=== PATIENT | male | born 1990 | race Caucasian/White ===

== ENCOUNTER 2020-08-04 11:06 | Emergency (ER) | payer OTHER, SELFPAY ==
[2020-08-04 11:14] VITALS: BP 158/95; PULSE 107; RESP 16; TEMP 36.8; O2SAT 92; BMI 24.4
--- NOTE | 2020-08-04 11:30 | ED.AMS ---
HPI - Altered Mental Status General Chief Complaint: Altered Mental Status Stated Complaint: HAND LAC,MINOR COUGH Time Seen by Provider: 08/04/20 11:14 Source: patient and EMS Mode of arrival: ambulatory Limitations: no limitations History of Present Illness HPI narrative: patient's history of substance abuse use cocaine and in the past used heroin now is on Suboxone [place] jump [place] the fence acting weekly patient denies any use of PCP but has used PCP in the past. Patient said that he was at the mall trying to buy mask and was something funny there does say he was behaving like his Related Data Previous Rx's Medication Instructions Recorded doxycycline hyclate 100 mg PO BID #20 cap 08/04/20 Allergies Allergy/AdvReac Type Severity Reaction Status Date / Time amoxicillin [AMOXICILLIN] Allergy Unknown UNKNOWN Unverified 07/14/20 16:52 penicillin V Allergy Unknown Verified 03/15/17 00:00 Penicillins [PENICILLINS] Allergy Unknown SWELLING Unverified 07/14/20 16:52 Review of Systems Review of Systems: REVIEW OF SYSTEMS: Pertinent positives and negatives are stated above in the history. GEN: no fevers, chills, fatigue HEENT: no nasal congestion, sore throat, ear pain NEURO: no headache, dizziness, focal weakness PULM: no cough, shortness of breath CV: no chest pain, palpitations, LE edema ABD: no abdominal pain, nausea, vomiting, diarrhea : no dysuria, urgency, frequency SKIN: no rash ROS otherwise negative x 10 PMFSH Social History Social History Smoking Status: Current every day smoker Substance Use Type: Marijuana Substance Use Frequency: Chronic Longstanding Last Used Substance: Unknown Any prior treatment program specific to substance use: Yes Advance Directives: No Advance Directives Information Provided: No Physical Exam Vital Signs and I&O and Narrative: Vital Signs and I&O: Vital Signs Temp 98.3 F 08/04/20 11:14 Pulse 107 H 08/04/20 11:14 Resp 16 08/04/20 11:14 BP 158/95 H 08/04/20 11:14 Pulse Ox 92 08/04/20 11:14 Intake & Output 08/03/20 08/04/20 08/04/20 18:59 06:59 18:59 Weight 75 kg Body Mass Index 24.4 VITAL SIGNS: Reviewed. GENERAL: Well developed, well nourished, in no acute distress. HEAD: Normocephalic/atraumatic, Posterior oropharynx was without edema, erythema or exudate. EYES: PERRLA, EOMI intact without pain, no nystagmus/pallor/icterus noted EARS: Ext canals without abnormality, TMs non-bulging and non-erythematous NOSE: Nares patent bilateral OROPHARYNX: no oral lesions noted, posterior pharynx clear and non-erythematous without noted tonsillar enlargement/erythema/exudates NECK: Supple, no adenopathy LUNGS: Normal breath sounds. No adventitious sounds or accessory muscle use CARDIOVASCULAR: Regular rate and rhythm without noted murmurs, no JVD or lower extremity edema. ABDOMEN: Soft, non-tender, non-distended with bowel sounds. No rigidity. No guarding. No palpable masses or hernias noted MUSCULOSKELETAL: No tenderness, deformities, or effusions noted on gross inspection. EXTREMITIES: No cyanosis, clubbing or edema. small punctured wound right arm without any significant bony injury or infection or bleeding SKIN: Inspection of the skin reveals no rashes, ulcerations, jaundice, pallor, or petechiae NEUROLOGIC: Alert and oriented x 3. Strength and sensation to light touch were grossly intact x 4. Course Course Course Narrative: patient had p.o. fluids in the ER denied any substance abuse or any need of help lives at home with family will be going home Discharge Plan Discharge Clinical Impression: Substance abuse Patient Disposition: Home, Self-Care Instructions: Puncture Wound (ED), Polysubstance Abuse (ED) Additional Instructions: follow-up with detox local care as advised Prescriptions: New doxycycline hyclate 100 mg capsule 100 mg PO BID Qty: 20 RF: 0
--- NOTE | 2020-08-04 12:03 | PC.NURSE ---
PT UPRIGHT PACING IN ROOM AND STANDING IN DOORWAY, PT STS I AINT TRYNA STAY IN THE HOSPITAL , PT VERBALIZES UNDERSTANDING OF NEED TO AWAIT LAB RESULTS AND ONLY TO BE D/C'D BY PROVIDER. PT IN NAD, OFFERS NO COMPLAINTS
[2020-08-04 12:14] LABS: Amphetamine Screen Urine Not Detected (Not Detect); Barbiturates, Urine POSITIVE (Not Detect); Benzodiazepines Screen Urine Not Detected (Not Detect); Cannabinoid Screen Urine POSITIVE (Not Detect); Cocaine Screen Urine POSITIVE (Not Detect); Opiate Screen Urine POSITIVE (Not Detect); Phencyclidine Screen Urine Not Detected (Not Detect)
== END 2020-08-04 12:30 | disposition home or self-care (01) ==
PROVIDERS: Emergency Provider Internal Medicine
DX: F19.10 Other psychoactive substance abuse, uncomplicated (principal); F14.10 Cocaine abuse, uncomplicated; S41.131A Puncture wound without foreign body of right upper arm, initial encounter; X58.XXXA Exposure to other specified factors, initial encounter; F17.200 Nicotine dependence, unspecified, uncomplicated; Y93.9 Activity, unspecified; Y92.9 Unspecified place or not applicable; Y99.9 Unspecified external cause status
CPT/HCPCS: 80307; 99283; 99284

== ENCOUNTER 2020-08-08 00:05 | Emergency (ER) | payer OTHER, SELFPAY ==
[2020-08-08 00:16] VITALS: BP 165/99; PULSE 116; RESP 16; TEMP 36.4; O2SAT 98; BMI 24.3
--- NOTE | 2020-08-08 01:00 | ED.PSYCH ---
HPI - Psych General Chief Complaint: Psychiatric Symptoms Stated Complaint: Crisis Time Seen by Provider: 08/08/20 00:59 History of Present Illness HPI Narrative: patient is a 30-year-old male with a history of polysubstance abuse. History of using heroin in the past. Now is on Suboxone peers history of alcohol abuse. Patient denies any suicidal homicidal ideation. Patient wants detox. Patient wants a place to sleep. Denies any coughing congestion upper respiratory symptoms that is new. No diaphoresis. Related Data Previous Rx's Medication Instructions Recorded doxycycline hyclate 100 mg PO BID #20 cap 08/04/20 Allergies Allergy/AdvReac Type Severity Reaction Status Date / Time amoxicillin [AMOXICILLIN] Allergy Unknown UNKNOWN Verified 08/08/20 00:15 penicillin V Allergy Unknown Hives Verified 08/08/20 00:15 Penicillins [PENICILLINS] Allergy Unknown SWELLING Verified 08/08/20 00:15 Review of Systems Review of Systems: Patient refused to answer specific review of systems [facility] Past Medical History Attestation statement: The following information was validated with the patient. Medical History No known health problems Social History Social History Smoking Status: Current every day smoker Substance Use Type: Marijuana Advance Directives: No Advance Directives Information Provided: No Physical Exam Vital Signs: Vital Signs: Vital Signs Temp Pulse Resp BP Pulse Ox 08/08/20 00:16 97.5 F 116 H 16 165/99 H 98 Body Mass Index 24.3 O2 sat 98% on room air. Normal. Appearance: Alert. Oriented X3. No acute distress. Eyes: Pupils equal, round and reactive to light. ENT: Pharynx normal. Neck: Normal inspection. Neck supple. No lymph nodes noted. No crepitus CVS: Normal heart rate and rhythm. Pulses normal. Normal S1 and S2 Respiratory: No respiratory distress. Breath sounds normal. No Wheezing. No rales Abdomen: Soft and nontender. No rigidity. No distention. good BS x4 Skin: Skin warm and dry. Normal skin color. Normal skin turgor. Extremities: No lower extremity edema. Neurovascular intact to all extremities. No Lacerations. No Rash Neuro: Oriented X 3. No motor deficit. No sensory deficit. Moving all extermities. No slurred speech MDM - Psych MDM Narrative Medical decision making narrative: Patient decided to leave. He denies any suicidal homicidal ideation. Patient wants to leave and go home. Did not want acute rehab at this time. Patient explained that rehab takes time. Patient walked out emergency department. Understood that continue use of drug and alcohol can potentially kill him. clinically appears sober at this time. patient stood up and walked out. Patient left prior to discharge paperwork can be done. Restraints Face to Face Assessment: Face to Face Assessment: Current Situation: After assessment of the patient, a review of the pertinent medical record and a discussion with nursing staff, I feel the patient requires a restrain intervention. Reaction To: [] Medical Condition: [] Behavioral State: [] Continued Need: [] Discharge Plan Discharge Clinical Impression: Substance abuse Patient Disposition: Left Against Medical Advice Instructions: Abuse of Alcohol (ED), Narcotic Use Disorder (ED) Prescriptions: No Action doxycycline hyclate 100 mg capsule 100 mg PO BID Qty: 20 RF: 0
--- NOTE | 2020-08-08 01:02 | PC.NURSE ---
Pt in the waiting room, angry. I am going to jason this place, just because I said I don't want to kill myself they said I could just leave Pt asking what the difference between himself and a separate patient was, this RN told him that other's patient's situations could not be discussed. Pt leaving muttering under his breath at this time.
== END 2020-08-08 01:14 | disposition left against medical advice (07) ==
PROVIDERS: Emergency Provider Emergency Medicine Emergency Medical Services
DX: F10.10 Alcohol abuse, uncomplicated (principal); F19.10 Other psychoactive substance abuse, uncomplicated; F11.90 Opioid use, unspecified, uncomplicated; F12.90 Cannabis use, unspecified, uncomplicated; F17.200 Nicotine dependence, unspecified, uncomplicated
CPT/HCPCS: 99284

== ENCOUNTER 2021-03-21 23:45 | Emergency (ER) | payer OTHER, SELFPAY ==
[2021-03-22 00:01] VITALS: BP 128/83; PULSE 128; RESP 17; TEMP 36.5; O2SAT 98; BMI 25.8
[2021-03-22 00:45] LABS: COVID-19 Test Negative (Negative); IDNOW Serial# 9DD0AD1C
[2021-03-22 01:04] LABS: Amphetamine Screen Urine Not Detected (Not Detect); Barbiturates, Urine Not Detected (Not Detect); Benzodiazepines Screen Urine POSITIVE (Not Detect); Cannabinoid Screen Urine POSITIVE (Not Detect); Cocaine Screen Urine POSITIVE (Not Detect); Opiate Screen Urine POSITIVE (Not Detect); Phencyclidine Screen Urine Not Detected (Not Detect)
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
--- NOTE | 2021-03-22 05:43 | PC.NURSE ---
[facility] notified through smart-sheet, spoke with Dominique/confirmed receipt of referral, patient will be seen in the morning.
--- NOTE | 2021-03-22 09:52 | HE.PHANOTE ---
MED REC COMPLETE, NO ISSUES
[2021-03-22 10:10] VITALS: BP 118/65; PULSE 57; RESP 17; TEMP 36.9; O2SAT 96
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
== END 2021-03-22 11:46 | disposition home or self-care (01) ==
PROVIDERS: Physician Assistant; Emergency Provider Emergency Medicine
DX: F41.1 Generalized anxiety disorder (principal); F43.0 Acute stress reaction; Z79.899 Other long term (current) drug therapy; Z20.822 Contact with and (suspected) exposure to COVID-19
CPT/HCPCS: 36415; 80307; 87635; 99283

== ENCOUNTER 2021-11-10 12:44 | Emergency (ER) | payer OTHER, SELFPAY ==
[2021-11-10 13:01] VITALS: BP 120/48; PULSE 69; O2SAT 98; BMI 24.3
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
[2021-11-10] MEDS: LORazepam 2 MG/ML VIAL IM (13:20)
--- NOTE | 2021-11-10 14:58 | HO.SUDE ---
Pt discharged prior to SUDE being completed. See provider note.
[2021-11-10 15:15] VITALS: BP 147/87; PULSE 82; RESP 16; O2SAT 97
--- NOTE | 2021-11-10 15:15 | PC.NURSE ---
pt calm and cooperative w this rn, asking to call his for ride home. denies any si/hi or crisis. provider at bedside to speak w pt. provider agreeable to dc, pt agreeing to follow up w pcp on saturday. security getting pt things from [facility] for dc.
== END 2021-11-10 14:44 | disposition home or self-care (01) ==
PROVIDERS: Emergency Provider Emergency Medicine
DX: T40.1X1A Poisoning by heroin, accidental (unintentional), initial encounter (principal); Y92.9 Unspecified place or not applicable; F11.19 Opioid abuse with unspecified opioid-induced disorder; Z79.899 Other long term (current) drug therapy; Z71.51 Drug abuse counseling and surveillance of drug abuser
CPT/HCPCS: 96372; 99283; 99291; J2060

== ENCOUNTER 2022-01-31 20:39 | Emergency (ER) | payer OTHER, SELFPAY ==
[2022-01-31 20:50] VITALS: BP 164/98; BP 177/114; PULSE 84; PULSE 94; RESP 22; O2SAT 96; BMI 22.9
--- NOTE | 2022-01-31 20:55 | ED_ITS ---
HPI - Overdose General Chief Complaint: Overdose Stated Complaint: od Time Seen by Provider: 01/31/22 20:49 Source: patient and EMS Mode of arrival: EMS Limitations: no limitations History of Present Illness HPI Narrative: This is a 31-year-old male opiate use d/o presents via ambulance for a suspected overdose. Patient tells me that he used 4 bags of heroin IV today. He tells me he thinks his mother called 911 as he was not responding. According to EMS he received 8 mg of intranasal Narcan with good response. Patient tells me he does use to get high, no intense of suicide or self-harm. He tells me he is currently on 180 mg of Suboxone his last dose was a few hours ago. Has no medical complaints. He denies any other drug use. He denies visual, auditory and tactile hallucinations. No evidence signs of trauma. Patient speaking in full sentences no acute distress. MD complaint: accidental overdose Onset (ago): minute(s) (30) Related Data Home Medications Medication Instructions Recorded Confirmed buprenorphine 8 mg-naloxone 2 mg 2 film SUBLINGUAL DAILY 03/22/21 03/22/21 sublingual film (Suboxone) Previous Rx's Medication Instructions Recorded naloxone 4 mg/actuation nasal spray 4 mg INTRANASAL Q2M PRN #2 ea 01/31/22 Allergies Allergy/AdvReac Type Severity Reaction Status Date / Time amoxicillin [AMOXICILLIN] Allergy Unknown UNKNOWN Verified 08/08/20 00:15 penicillin V Allergy Unknown Hives Verified 08/08/20 00:15 Penicillins [PENICILLINS] Allergy Unknown SWELLING Verified 08/08/20 00:15 Review of Systems Review of Systems: Constitutional : No Fever, No Chills ENT/Mouth : No sore throat, No Rhinorrhea Eyes: No Eye Pain, No Swelling, No Redness Cardiovascular : No Chest Pain, No SOB Respiratory : No Cough, No Sputum Gastrointestinal : No Nausea, No Vomiting, No Diarrhea, No abdominal Pain Genitourinary : No Dysuria, No Hematuria Musculoskeletal : No joint pain, No Myalgias, No Joint Swelling Skin : No Skin Lesions, No rash Neuro : No Weakness, No Numbness Psych : No Anxiety, No Depression, No SI/HI/AH/VH Heme/Lymph: No Bruising, No Bleeding Endocrine : No Polyuria, No Polydipsia All other systems reviewed and are negative Yes all other systems are reviewed and are negative PMFSH Past Medical History Attestation statement: The following information was validated with the patient. Source: old records reviewed and nursing notes reviewed Medical History No known health problems Social History Social History Alcohol intake: current Alcohol intake frequency: a few times a week Substance Use Type: Marijuana Advance Directives: No Advance Directives Information Provided: No Physical Exam Vital Signs: Vital Signs: Last Vital Signs Temp 99.1 F 02/01/22 00:20 Pulse 69 02/01/22 01:07 Resp 16 02/01/22 01:07 BP 118/70 02/01/22 01:07 Pulse Ox 96 02/01/22 01:07 BMI result Body Mass Index 22.9 Patient's vitals noted for hypertension however patient is unable to stay still while we obtain a blood pressure unlikely an accurate reading. Saturating well on room air 96% on room air. Appearance: Alert.? Oriented X3.? No acute distress.? Patient moving around, unable to stay still. Head: Normocephalic, atraumatic, no step-offs or deformities Eyes: Pupils equal, round and reactive to light.?+ pinpoint b/l ENT: Pharynx normal.? Neck: Normal inspection.? Neck supple.? CVS: Normal heart rate and rhythm.? Pulses normal.? Respiratory: No respiratory distress.? Breath sounds normal.? Abdomen: Soft and nontender.? Skin: Skin warm and dry.? Normal skin color.? Normal skin turgor.? Extremities: No lower extremity edema.? No calf ttp. 5/5 strength to bilateral upper and lower extremities Back: No midline tenderness, no C-spine tenderness, full range of motion, no CVA tenderness bilaterally Neuro: Oriented X 3.? No motor deficit.? No sensory deficit. CN 2-12 intact Course Reevaluation(s) Reevaluation #1: Patient running out of room, confused, about to fall over, marching toward staff members becoming aggressive. Try to verbally deescalate the situation and guide patient back to room however he walked out of room again, posing threat to self and others medical restraint was given at this time. Labs still not obtain due to patient being combative, unable to stay still for a blood draw. I suspect polysubstance Time: 21:28 Reevaluation #2: Spoke to patient's , tells me that she thinks patient overdosed on heroin today. She tells me that patient has been doing well his actual dose of methadone is 105, he missed his dose today. 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 tells me he has been doing decently well however she is concerned that he has been making vague SI comments over the past month or so. She tells me he has a lot going on and would like it if patient can be evaluated by the behavioral health team. CBC within normal limits. Chemistry no acute electrolyte abnormalities. COVID negative. Urine toxicology pending. UA pending At this time patient will be placed in to physician observation to allow more time to be evaluated by the behavioral health team. At time that observation was started patient, cooperative no acute distress. Pending urine and urine toxicology. Gave report to . Time: 02:45 MDM - Overdose MDM Narrative Medical decision making narrative: 2052 31 yo m presents s/p heroin od currently on methadone 180 mg according to patient. Denies SI and hI. Physical exam significant for a male that is unable to stay still. Lungs clear. Regular rate and rhythm. Bilateral pupils pinpoint. Consistent with opiate overdose. Patient speaking in full sentences vital signs stable no signs of acute respiratory distress. Plan at this time is medical clearance, SUDE, ua, covid, Medical Records Attestation: I reviewed the patient's medical records. Lab Data Attestation: I reviewed the patient's lab results. Result diagrams: 01/31/22 23:35 01/31/22 23:35 Labs: Lab Results 01/31/22 01/31/22 01/31/22 Range/Units 21:13 23:35 23:35 WBC 7.8 (4.8-10.8) X10*3/uL RBC 5.42 (4.60-5.80) X10*6/uL Hgb 15.2 (14.0-18.0) g/dl Hct 45.4 (42.0-52.0) % MCV 83.8 (80.0-98.0) fL MCH 28.0 (27.0-33.0) pg MCHC 33.5 (31.0-36.0) g/dl RDW 15.3 (11.0-16.0) % Plt Count 213 (160-400) X10*3/uL MPV 10.7 (9.4-12.4) fL Immature Gran % (Auto) 0.3 (0.0-0.4) % Neut % (Auto) 71.8 (45-73) % Lymph % (Auto) 21.6 (20-40) % [place] % (Auto) 5.4 (2-11) % Eos % (Auto) 0.4 (0-4) % Baso % (Auto) 0.5 (0-2) % Lymph # (Auto) 1.7 (1.2-4.9) X10*3/uL [place] # (Auto) 0.4 (0.1-1.2) X10*3/uL Eos # (Auto) 0.0 (0.0-0.4) X10*3/uL Baso # (Auto) 0.0 (0.0-0.2) X10*3/uL Abs Immat Gran (auto) 0.02 (0.00-0.03) X10*3/uL Absolute Neuts (auto) 5.6 (2.0-8.3) x10*3/uL Absolute Nucleated RBC 0.000 (0.0-0.012) X10*3/uL Nucleated RBC % (auto) 0.0 (0.0-0.2) /100WBC Sodium 142 (135-145) mmol/L Potassium 4.0 (3.3-5.1) mmol/L Chloride 106 (96-108) mmol/L Carbon Dioxide 25 (22-29) mmol/L Anion Gap 15 (12-20) BUN 15 (9-16) mg/dL Creatinine 0.87 (0.5-1.4) mg/dL Estim Creat Clear Calc 128.6 Estimated GFR > 60 Random Glucose 93 (60-115) mg/dL Calcium 10.1 (8.4-10.2) mg/dL Magnesium 1.9 (1.6-2.6) mg/dL Total Bilirubin 0.8 (0.0-1.0) mg/dL AST 50 H (5-37) U/L ALT 30 (0-40) U/L Alkaline Phosphatase 96 (39-117) U/L Total Protein 8.2 H (6.5-8.0) g/dL Albumin 4.9 (3.5-5.0) g/dL COVID-19 ([facility]) Negative (Negative) COVID-19 Clin Com See Note Critical Care Time Critical Care Time Critical Care Time: No Discharge Plan Discharge Clinical Impression: Opiate dependence, Drug overdose Patient Disposition: Home, Self-Care Additional Instructions: Take your medications as prescribed. If you were prescribed antibiotics today, it is important that you take your medication to their entirety, do not skip any doses, do not finish them early. Follow-up with your primary care provider this week. Return to the emergency department with new or worsening symptoms. Such as fevers, chills, chest pain, shortness of breath, nausea, vomiting, dizziness, headache, vision changes, lethargy In case of emergency call 911 Prescriptions: New naloxone 4 mg/actuation spray,non-aerosol 4 mg intranasal Q2M PRN (Reason: opioid overdose) Qty: 2 0RF Rx Instructions: spray 1 dose into ONE nostril; alternate nostrils w each dose until help arrives No Action buprenorphine-naloxone [Suboxone] 8-2 mg Film 2 film SUBLINGUAL DAILY 0RF Referrals: Sana Etienne MD [Primary Care Provider] -
[2022-01-31] MEDS: LORazepam 1 MG TABLET 2 MG PO (21:23)
--- NOTE | 2022-01-31 21:34 | HO.SUDE ---
CARE team attempted to meet with pt to completed a substance use disorder evaluation. Pt was incredibly restless and flailing around on the stretcher and stated that he feels like he's dying. He wasn't able to engage in a conversation with this ad copy writer about his substance. He was able to confirm that he's on methadone, but wasn't able to say which clinic he goes to. He repeated words back to this ad copy writer when asked questions and he wasn't able to keep his eyes open or maintain attention or focus. CARE/Recovery team will attempt to meet with pt when he is able to be more engaged in evaluation.
[2022-01-31 21:36] LABS: COVID-19 Test Negative (Negative); IDNOW Serial# 16C4AD1C
[2022-01-31 21:37] VITALS: PULSE 105; RESP 24; O2SAT 96
[2022-01-31] MEDS: diphenhydrAMINE HCL 50 MG/ML VIAL IM (21:37)
[2022-01-31] MEDS: Haloperidol Lactate 5 MG/ML VIAL IM (21:38)
--- NOTE | 2022-01-31 21:38 | PC.NURSE ---
PT requesting something to help him calm down. PT agreeable to IM med for faster response time.
--- NOTE | 2022-01-31 21:51 | MHC.RECOVSUP ---
? Reason for consult:Recovery Support o Current location: ED11 o Identified substance use concern: Heroine - Overdose - Support ? Intervention:None o ? Plan: o o Follow up tomorrow o ? Additional information: Patient is impaired. he refuses to engage with me. Patient pulled blanket over his head during my attempt to talk with him. Will F/U in the morning.
[2022-01-31 21:52] VITALS: PULSE 80; RESP 20; O2SAT 96
[2022-01-31 22:07] VITALS: PULSE 111; RESP 20; O2SAT 96
[2022-01-31 22:22] VITALS: BP 127/82; PULSE 70; RESP 18; O2SAT 97
[2022-01-31 23:40] LABS: MANUAL DIFF FLAG NO
[2022-01-31 23:41] LABS: Basophils Percent Auto 0.5 % (0-2); Eosinophils Percent Auto 0.4 % (0-4); Hematocrit 45.4 % (42.0-52.0); Hemoglobin 15.2 g/dl (14.0-18.0); Imm Gran Abs Auto 0.02 X10*3/uL (0.00-0.03); Imm Gran Pct Auto 0.3 % (0.0-0.4); Lymphocytes Absolute Auto 1.7 X10*3/uL (1.2-4.9); Lymphocytes Percent Auto 21.6 % (20-40); Mean Corpuscular HGB Conc 33.5 g/dl (31.0-36.0); Mean Corpuscular Volume 83.8 fL (80.0-98.0); Mean Platelet Volume 10.7 fL (9.4-12.4); Monocytes Absolute Auto 0.4 X10*3/uL (0.1-1.2); Monocytes Percent Auto 5.4 % (2-11); Neutrophils Absolute Auto 5.6 x10*3/uL (2.0-8.3); Neutrophils Percent Auto 71.8 % (45-73); Platelet Count 213 X10*3/uL (160-400); Red Blood Count 5.42 X10*6/uL (4.60-5.80); Red Cell Distribution Width 15.3 % (11.0-16.0); White Blood Count 7.8 X10*3/uL (4.8-10.8)
[2022-01-31 23:56] LABS: Alanine Aminotransferase 30 U/L (0-40); Albumin Level 4.9 g/dL (3.5-5.0); Alkaline Phosphatase 96 U/L (39-117); Anion Gap 15 (12-20); Aspartate Amino Transferase 50 U/L (5-37); Bilirubin Total 0.8 mg/dL (0.0-1.0); Blood Urea Nitrogen 15 mg/dL (9-16); Calcium 10.1 mg/dL (8.4-10.2); Carbon Dioxide 25 mmol/L (22-29); Chloride 106 mmol/L (96-108); Creatinine Clr Calc Pharmacy 128.6; Estimated Glomerular Filt Rate > 60; Glucose Random 93 mg/dL (60-115); Magnesium 1.9 mg/dL (1.6-2.6); Sodium 142 mmol/L (135-145); Total Protein 8.2 g/dL (6.5-8.0)
[2022-02-01 00:20] VITALS: BP 109/66; PULSE 64; RESP 16; TEMP 37.3; O2SAT 96
[2022-02-01 01:07] VITALS: BP 118/70; PULSE 69; RESP 16; O2SAT 96
[2022-02-01 03:40] VITALS: BP 147/84; PULSE 56; RESP 16; O2SAT 96
[2022-02-01 04:02] VITALS: BP 146/91; PULSE 61; RESP 16; TEMP 36.6; O2SAT 96
--- NOTE | 2022-02-01 05:47 | PC.NURSE ---
RN assumed care of patient upon arrival. Another nurse helped assist with giving medication. Patient sleeping at this time, still requires a urine sample, will continue to monitor
--- NOTE | 2022-02-01 07:03 | PC.NURSE ---
report taken from theo keith pt here for ?overdose, was erratic on arrival and given medication restraint d/t behaviors. pt appears to be sleeping in stretcher at this time, rr even/unlabored. wctm for dc needs.
[2022-02-01 07:10] VITALS: BP 134/86; PULSE 63; RESP 14; O2SAT 97
== END 2022-02-01 08:13 | disposition home or self-care (01) ==
PROVIDERS: Physician Assistant; Emergency Provider Emergency Medicine Emergency Medical Services; PCP Family Medicine
DX: T40.1X1A Poisoning by heroin, accidental (unintentional), initial encounter (principal); F11.29 Opioid dependence with unspecified opioid-induced disorder; Y92.009 Unspecified place in unspecified non-institutional (private) residence as the place of occurrence of the external cause; Z79.899 Other long term (current) drug therapy; Z71.51 Drug abuse counseling and surveillance of drug abuser; Z20.822 Contact with and (suspected) exposure to COVID-19
CPT/HCPCS: 80053; 83735; 85025; 87635; 96372; 99284; 99285; J1200

== ENCOUNTER 2022-03-13 12:30 | Emergency (ER) | payer OTHER, SELFPAY ==
[2022-03-13 14:35] VITALS: BP 152/92; PULSE 71; RESP 18; TEMP 36.4; O2SAT 97; BMI 25.1
[2022-03-13 15:49] VITALS: BP 149/101; PULSE 80; RESP 18; TEMP 37; O2SAT 96
--- NOTE | 2022-03-13 15:54 | ED.EXTPRO ---
HPI - Extremity Problem General Chief complaint: Extremity Problem Stated complaint: blood clot thigh r side Time Seen by Provider: 03/13/22 15:33 Source: patient Mode of arrival: ambulatory Limitations: no limitations History of Present Illness HPI Narrative: 31-year-old male who presents emergency department for evaluation of a redness the right lower extremity and shaking chills. The patient does use injection drugs. He states that approximately 5 days ago he did inject heroin into his right lower extremity. He states that 3 days ago he noticed an area of redness just below the medial aspect of the right knee. He states that the redness has spread up his leg just proximal to the right groin area along the medial aspect of the thigh. He states that he was concerned about the spreading redness. He states that this morning he had chills and shakiness which he states was mild. He denied fever, chest pain, shortness of breath, nausea, vomiting, fatigue or weakness. The patient is in a methadone program and takes 120 mg of methadone daily. He states that he injects heroin 2 to 3 times a month. He drinks a sleeve (10 nips) of 100% vodka daily. He does not know when his last tetanus shot was given. MD Complaint: other (Extremity lymphangitis, pain) Onset (ago): day(s) (3) Pain Consistency: constant Location: right Severity scale (1-10): 2 Quality: aching Radiation: proximal Relieving factors: nothing Exacerbating factors: nothing Associated symptoms: other (Chills, shakiness) Related Data Home Medications Medication Instructions Recorded Confirmed buprenorphine 8 mg-naloxone 2 mg 2 film SUBLINGUAL DAILY 03/22/21 03/22/21 sublingual film (Suboxone) Previous Rx's Medication Instructions Recorded naloxone 4 mg/actuation nasal spray 4 mg INTRANASAL Q2M PRN #2 ea 01/31/22 cefadroxil 500 mg capsule 1,000 mg PO BID 7 Days #28 cap 03/13/22 chlordiazepoxide HCl 25 mg capsule 50 mg PO BID 4 Days #16 cap 03/13/22 doxycycline hyclate 100 mg tablet 100 mg PO Q12H 7 Days #14 tab 03/13/22 Allergies Allergy/AdvReac Type Severity Reaction Status Date / Time amoxicillin [AMOXICILLIN] Allergy Unknown UNKNOWN Verified 03/13/22 14:34 penicillin V Allergy Unknown Hives Verified 03/13/22 14:34 Penicillins [PENICILLINS] Allergy Unknown SWELLING Verified 03/13/22 14:34 Review of Systems Review of Systems: Yes all other systems are reviewed and are negative [facility] Past Medical History [facility] Narrative: Past medical history: None. Past surgical history: Left forearm fracture with ORIF. Social history: He is . He smokes 1 pack of cigarettes per day times 10 years. He drinks 10 nips of 100 proof vodka daily. He is currently in a methadone program receives 120 mg of methadone daily. He injects heroin 3 to 4 times a month. Medical History No known health problems Social History Social History Alcohol intake: current Alcohol intake frequency: 3 or more drinks per day Patient Tobacco Use Status: Current everyday Tobacco user Use of substances other than those prescribed or required for medical reasons: Yes Substance Use Type: Heroin Advance Directives: No Advance Directives Information Provided: No Physical Exam Vital Signs: Vital Signs: Last Vital Signs Temp 98.1 F 03/13/22 18:33 Pulse 84 03/13/22 18:33 Resp 20 03/13/22 18:33 BP 161/99 H 03/13/22 18:33 Pulse Ox 98 03/13/22 18:33 BMI result Body Mass Index 25.1 Const: General: cooperative and no acute distress Orientation/consciousness: oriented to person and oriented to place Limitations: no limitations HEENT: Head: Yes normal to inspection, Yes normocephalic and Yes atraumatic Ears: external ears normal General nose exam: Normal external nose present Face and sinus: Yes normal facial exam Mouth: Normal oral and palatal mucosa present Throat: Yes posterior oropharynx normal Eyes: General: appearance normal, both eyes and all related structures Pupils: Equal, round and reactive pupils present Neck: Neck: Yes normal visual inspection, Yes no lymphadenopathy, Yes trachea midline and Yes supple Chest: Chest palpation & inspection: normal inspection of the chest and normal palpation of entire chest wall Resp: Effort & Inspection: normal respiratory effort and able to speak in complete sentences Auscultation: clear to auscultation bilaterally Cardio: Rate: regular rate Rhythm: regular rhythm Heart sounds: S1 normal heart sound present, S2 normal heart sound present and no murmurs GI: Inspection: Yes normal to inspection Palpation (GI): Soft to palpation, nontender and no guarding Auscultation: normal bowel sounds : General: Yes no CVA tenderness Back/Spine/Pelvis: Back: no CVA tenderness Skin: General skin exam: no rashes or lesions noted Neuro: General: oriented to person and oriented to place Cranial nerves: Yes CN's II-XII intact bilaterally and Yes Equal, round and reactive pupils present Cognition (Neuro): normal cognition Motor exam (neuro): 5/5 motor strength present throughout Extrem: Other: Patient's lymphangitis to the right medial lower extremity starting just below the knee and extending up the thigh just proximal to the groin area, the lymphangitis is warm to the touch and tender to palpation, there is no other erythema noted, there is no abscess noted, extremities neurovascular intact General: Yes normal to inspection Psych: Appearance: grossly normal Speech and movement: Normal speech and movement present Affect: normal affect Attitude: cooperative Thought process: Normal thought process present Thought content: Normal thought content present Course Course Course Narrative: 31-year-old male with a history of injection drug use who injected into his right lower extremity 5 days prior. Three days prior he noticed a red streak just below his medial aspect of his knee which is now progressed to just below his right groin area. This morning he did have chills and shakiness which he states was very brief. Otherwise he denies any other symptoms. Vital signs revealed an elevated blood pressure of 152/92 otherwise there were unremarkable. Physical examination did reveal an area of lymphangitis that extends from just below his knee along the medial aspect of his like to just below the groin. The lymphangitis is warm to the touch and tender to palpation. There is no findings of cellulitis or abscess on my physical examination. I did order laboratory evaluation includes CBC, CMP, ESR, CRP, lactate, blood cultures x2. Patient was treated with normal saline IV x1 L and Ancef 2 g IV. I also ordered a Tdap for the patient since he has not had a tetanus shot in over 10 years. 1908: Laboratory evaluation: WBC, CRP and ESR were normal. Patient's AST, ALT and alk-phos were elevated at 158, 468 and 166. Total bilirubin was normal. Lactate was slightly elevated 2.1 Given the above laboratory evaluation, I believe that the patient can be started on oral medications to see if this improves his lymphangitis. Patient was prescribed Duricef 1000 mg twice a day for 7 days and doxycycline 100 mg twice a day for 7 days. The patient's elevated LFTs is most likely related to his alcohol use disorder. The patient wants to try to stop drinking alcohol therefore I prescribed Librium 50 mg twice a day for 5 days. He was also given a list of possible detox programs. The patient was also given intranasal Narcan rescue pack and I did discuss safe use of narcotics with the patient. MDM - Extremity (Nontraumatic) Lab Data Result diagrams: 03/13/22 16:54 03/13/22 16:54 Labs: Lab Results 03/13/22 03/13/22 03/13/22 Range/Units 16:54 16:54 16:54 WBC 6.7 (4.8-10.8) X10*3/uL RBC 5.00 (4.60-5.80) X10*6/uL Hgb 14.1 (14.0-18.0) g/dl Hct 42.3 (42.0-52.0) % MCV 84.6 (80.0-98.0) fL MCH 28.2 (27.0-33.0) pg MCHC 33.3 (31.0-36.0) g/dl RDW 15.0 (11.0-16.0) % Plt Count 183 (160-400) X10*3/uL MPV 10.7 (9.4-12.4) fL Immature Gran % (Auto) 0.3 (0.0-0.4) % Neut % (Auto) 62.5 (45-73) % Lymph % (Auto) 27.2 (20-40) % [place] % (Auto) 8.9 (2-11) % Eos % (Auto) 0.7 (0-4) % Baso % (Auto) 0.4 (0-2) % Lymph # (Auto) 1.8 (1.2-4.9) X10*3/uL [place] # (Auto) 0.6 (0.1-1.2) X10*3/uL Eos # (Auto) 0.1 (0.0-0.4) X10*3/uL Baso # (Auto) 0.0 (0.0-0.2) X10*3/uL Abs Immat Gran (auto) 0.02 (0.00-0.03) X10*3/uL Absolute Neuts (auto) 4.2 (2.0-8.3) x10*3/uL Absolute Nucleated RBC 0.000 (0.0-0.012) X10*3/uL Nucleated RBC % (auto) 0.0 (0.0-0.2) /100WBC ESR 6 (0-15) MM/HR Sodium 139 (135-145) mmol/L Potassium 4.6 (3.3-5.1) mmol/L Chloride 104 (96-108) mmol/L Carbon Dioxide 26 (22-29) mmol/L Anion Gap 14 (12-20) BUN 8 L (9-16) mg/dL Creatinine 0.81 (0.5-1.4) mg/dL Estim Creat Clear Calc 134.5 Estimated GFR > 60 Random Glucose 94 (60-115) mg/dL Lactic Acid (0.5-2.0) mmol/L Calcium 10.0 (8.4-10.2) mg/dL Total Bilirubin 0.6 (0.0-1.0) mg/dL AST 588 H (5-37) U/L ALT 468 H (0-40) U/L Alkaline Phosphatase 166 H D (39-117) U/L C-Reactive Protein 0.34 (< or = 0.50) mg/dL Total Protein 7.7 (6.5-8.0) g/dL Albumin 4.4 (3.5-5.0) g/dL 03/13/22 Range/Units 16:54 WBC (4.8-10.8) X10*3/uL RBC (4.60-5.80) X10*6/uL Hgb (14.0-18.0) g/dl Hct (42.0-52.0) % MCV (80.0-98.0) fL MCH (27.0-33.0) pg MCHC (31.0-36.0) g/dl RDW (11.0-16.0) % Plt Count (160-400) X10*3/uL MPV (9.4-12.4) fL Immature Gran % (Auto) (0.0-0.4) % Neut % (Auto) (45-73) % Lymph % (Auto) (20-40) % [place] % (Auto) (2-11) % Eos % (Auto) (0-4) % Baso % (Auto) (0-2) % Lymph # (Auto) (1.2-4.9) X10*3/uL [place] # (Auto) (0.1-1.2) X10*3/uL Eos # (Auto) (0.0-0.4) X10*3/uL Baso # (Auto) (0.0-0.2) X10*3/uL Abs Immat Gran (auto) (0.00-0.03) X10*3/uL Absolute Neuts (auto) (2.0-8.3) x10*3/uL Absolute Nucleated RBC (0.0-0.012) X10*3/uL Nucleated RBC % (auto) (0.0-0.2) /100WBC ESR (0-15) MM/HR Sodium (135-145) mmol/L Potassium (3.3-5.1) mmol/L Chloride (96-108) mmol/L Carbon Dioxide (22-29) mmol/L Anion Gap (12-20) BUN (9-16) mg/dL Creatinine (0.5-1.4) mg/dL Estim Creat Clear Calc Estimated GFR Random Glucose (60-115) mg/dL Lactic Acid 2.1 H* (0.5-2.0) mmol/L Calcium (8.4-10.2) mg/dL Total Bilirubin (0.0-1.0) mg/dL AST (5-37) U/L ALT (0-40) U/L Alkaline Phosphatase (39-117) U/L C-Reactive Protein (< or = 0.50) mg/dL Total Protein (6.5-8.0) g/dL Albumin (3.5-5.0) g/dL Discharge Plan Discharge Clinical Impression: Acute lymphangitis of right lower extremity, Acute alcoholic liver disease, Polysubstance (including opioids) dependence, daily use Patient Disposition: Home, Self-Care Instructions: Lymphangitis (ED), Alcoholic Hepatitis (ED) Additional Instructions: Cellulitis/lymphangitis Discharge Instructions You have an infection of your lymphatic drainage system, this is called lymphangitis. This is usually caused by bacteria on your skin that gets under your skin and then causes the infection Take Duricef (cefadroxil) 500 mg pills, 2 pill twice a day for 1 week. Take doxycycline 100 mg pills, 1 pill twice a day for 1 week. This is an antibiotic that should help your body fight off the infection. Keep the area of cellulitis elevated to help reduce swelling in the infected area and this helps with the healing process Also apply a heating pad on low or a warm compress for 15 minutes, 4-6 times a day. This will increase the blood flow to the area and will bring white blood cells to the area which will help your body fight off the infection. Take Motrin(ibuprofen) 200mg pills, 3 pills every 6 hours as needed for pain. Other signs of worsening infection include fever, chills, weakness, increased pain, increased redness, increased swelling or red streaks going away from the area of infection. If you develop any of these symptoms or any other symptoms that are concerning to you, see your doctor immediately or return to the Emergency Department. Alcohol use disorder/acute liver disease caused by alcohol use discharge instructions: Your liver tests were elevated suggesting that your are starting to kill your liver from the alcohol that your drinking. If you continue to drink alcohol you will developed cirrhosis of the liver and of liver failure. I am prescribing Librium (chlordiazepoxide) 25 mg pills, take 2 pills twice a day for the next 5 days, this will help you with alcohol withdrawal. Do not drink alcohol while you taking this medication. You need to get into a detox program to help you with your alcohol abuse. Opiate use disorder instructions: Your are being discharged home with intranasal Narcan. If you are going to continue to use heroin, you should make sure that there is a sober person with you that is not using drugs and that this person can administer intranasal Narcan in the event that you stop breathing. Follow-up instructions: Follow up with your doctor in 3 days for a recheck Please read the other printed instructions that we printed for you. Prescriptions: New cefadroxil 500 mg capsule 1,000 mg PO BID 7 Days Qty: 28 0RF doxycycline hyclate 100 mg tablet 100 mg PO Q12H 7 Days Qty: 14 0RF chlordiazepoxide HCl 25 mg capsule 50 mg PO BID 4 Days Qty: 16 0RF Rx Instructions: Patient may request partial fill No Action buprenorphine-naloxone [Suboxone] 8-2 mg Film 2 film SUBLINGUAL DAILY 0RF naloxone 4 mg/actuation spray,non-aerosol 4 mg intranasal Q2M PRN (Reason: opioid overdose) Qty: 2 0RF Rx Instructions: spray 1 dose into ONE nostril; alternate nostrils w each dose until help arrives
[2022-03-13] MEDS: LORazepam 1 MG TABLET 2 MG PO (17:01)
[2022-03-13] MEDS: 0.9 % Sodium Chloride 1,000 ML 999 ML IV (17:01)
[2022-03-13] MEDS: Diphth,Pertus(ACell),Tet Adult 0.5 ML SYRINGE IM (17:04)
[2022-03-13 17:06] LABS: MANUAL DIFF FLAG NO
[2022-03-13 17:07] LABS: Basophils Percent Auto 0.4 % (0-2); Eosinophils Absolute Auto 0.1 X10*3/uL (0.0-0.4); Eosinophils Percent Auto 0.7 % (0-4); Hematocrit 42.3 % (42.0-52.0); Hemoglobin 14.1 g/dl (14.0-18.0); Imm Gran Abs Auto 0.02 X10*3/uL (0.00-0.03); Imm Gran Pct Auto 0.3 % (0.0-0.4); Lymphocytes Absolute Auto 1.8 X10*3/uL (1.2-4.9); Lymphocytes Percent Auto 27.2 % (20-40); Mean Corpuscular HGB Conc 33.3 g/dl (31.0-36.0); Mean Corpuscular Hemoglobin 28.2 pg (27.0-33.0); Mean Corpuscular Volume 84.6 fL (80.0-98.0); Mean Platelet Volume 10.7 fL (9.4-12.4); Monocytes Absolute Auto 0.6 X10*3/uL (0.1-1.2); Monocytes Percent Auto 8.9 % (2-11); Neutrophils Absolute Auto 4.2 x10*3/uL (2.0-8.3); Neutrophils Percent Auto 62.5 % (45-73); Platelet Count 183 X10*3/uL (160-400); White Blood Count 6.7 X10*3/uL (4.8-10.8)
[2022-03-13 17:13] VITALS: BP 146/86; PULSE 62; RESP 18; TEMP 36.8; O2SAT 98
--- NOTE | 2022-03-13 17:21 | PC.NURSE ---
Pt has been diaphoretic. has increased anxiety with needle sticks.
[2022-03-13 17:26] LABS: Alanine Aminotransferase 468 U/L (0-40); Albumin Level 4.4 g/dL (3.5-5.0); Alkaline Phosphatase 166 U/L (39-117); Anion Gap 14 (12-20); Aspartate Amino Transferase 588 U/L (5-37); Bilirubin Total 0.6 mg/dL (0.0-1.0); Blood Urea Nitrogen 8 mg/dL (9-16); C Reactive Protein 0.34 mg/dL (< or = 0.50); Carbon Dioxide 26 mmol/L (22-29); Chloride 104 mmol/L (96-108); Creatinine Clr Calc Pharmacy 134.5; Estimated Glomerular Filt Rate > 60; Glucose Random 94 mg/dL (60-115); Potassium 4.6 mmol/L (3.3-5.1); Sodium 139 mmol/L (135-145); Total Protein 7.7 g/dL (6.5-8.0)
[2022-03-13 17:29] LABS: Lactic Acid 2.1 mmol/L (0.5-2.0)
[2022-03-13 18:20] LABS: Erythrocyte Sedimentation Rate 6 MM/HR (0-15)
[2022-03-13 18:33] VITALS: BP 161/99; PULSE 84; RESP 20; TEMP 36.7; O2SAT 98
[2022-03-13 19:05] LABS: Reflex Lactate? Lactic Acid Added
== END 2022-03-13 20:19 | disposition home or self-care (01) ==
PROVIDERS: Emergency Provider Emergency Medicine Emergency Medical Services; PCP Family Medicine
DX: S80.811A Abrasion, right lower leg, initial encounter (principal); L04.3 Acute lymphadenitis of lower limb; K70.10 Alcoholic hepatitis without ascites; F11.20 Opioid dependence, uncomplicated; F17.200 Nicotine dependence, unspecified, uncomplicated; X58.XXXA Exposure to other specified factors, initial encounter; Y93.9 Activity, unspecified; Y92.9 Unspecified place or not applicable; Y99.9 Unspecified external cause status; Z71.41 Alcohol abuse counseling and surveillance of alcoholic; Z79.899 Other long term (current) drug therapy; Z71.6 Tobacco abuse counseling
CPT/HCPCS: 36415; 80053; 83605; 85025; 85652; 86140; 87040; 90471; 90715; 96361; 96374; 99284; J0690

== ENCOUNTER 2022-04-16 00:23 | Emergency (ER) | payer OTHER, SELFPAY ==
[2022-04-16] VITALS (15 sets, daily range): BP systolic 123–154; BP diastolic 66–93; PULSE 55–111; RESP 12–42; TEMP 36.7; O2SAT 94–99; BMI 25.9
--- NOTE | 2022-04-16 | ECG_ITS ---
Test Reason : OD Blood Pressure : / mmHG Vent. Rate : 073 BPM Atrial Rate : 073 BPM P-R Int : 126 ms QRS Dur : 104 ms QT Int : 442 ms P-R-T Axes : 034 040 016 degrees QTc Int : 486 ms Normal sinus rhythm Incomplete right bundle branch block Nonspecific T wave abnormality Prolonged QT Abnormal ECG No previous ECGs available Referred By: Katie Hui Electronically Signed By:ARAMIS DIAMOND MD
--- NOTE | 2022-04-16 00:32 | ED_ITS ---
HPI - Overdose General Chief Complaint: Overdose Stated Complaint: OD,NARCAN GIVEN W/GOOD RESULT PER EMS Time Seen by Provider: 04/16/22 00:25 Source: patient and EMS Mode of arrival: EMS Limitations: other (Intoxicated) History of Present Illness HPI Narrative: Patient comes to the emergency room via EMS. Patient's mother found the patient unresponsive. Patient is known to use opiates and alcohol. EMS gave the patient 8 mg of intranasal Narcan. Patient woke up immediately. Patient's mother states that she will be going to court this morning when it opens, she would like to Section 35 her son. Patient is aware and is agreeable. Patient states that he feels very shaky, requesting IM medication to help with his symptoms. Related Data Home Medications Medication Instructions Recorded Confirmed buprenorphine 8 mg-naloxone 2 mg 2 film sublingual DAILY 03/22/21 03/22/21 sublingual film (Suboxone) Previous Rx's Medication Instructions Recorded naloxone 4 mg/actuation nasal spray 4 mg intranasal Q2M PRN opioid 01/31/22 overdose #2 ea cefadroxil 500 mg capsule 1,000 mg PO BID 7 days #28 caps 03/13/22 chlordiazepoxide HCl 25 mg capsule 50 mg PO BID 4 days #16 caps 03/13/22 doxycycline hyclate 100 mg tablet 100 mg PO Q12H 7 days #14 tabs 03/13/22 Allergies Allergy/AdvReac Type Severity Reaction Status Date / Time amoxicillin [AMOXICILLIN] Allergy Unknown UNKNOWN Verified 04/16/22 00:27 penicillin V Allergy Unknown Hives Verified 04/16/22 00:27 Penicillins [PENICILLINS] Allergy Unknown SWELLING Verified 04/16/22 00:27 Review of Systems Review of Systems: Constitutional : No Weight loss, No Fever, No Chills, No Night Sweats, No Fatigue, No Malaise, complaining of feeling shaky/withdrawing from opiates ENT/Mouth : No Hearing loss, No Ear Pain, No Nasal Congestion, No Sinus Pain, No Hoarseness, No sore throat, No Rhinorrhea, No Swallowing Difficulty Eyes: No Eye Pain, No Swelling, No Redness, No Foreign Body, No Discharge, No Vision Changes Cardiovascular : No Chest Pain, No SOB, No Dyspnea on Exertion, No Orthopnea, No Edema, No Palpitations Respiratory : No Cough, No Sputum, No Wheezing, No Smoke Exposure, No Dyspnea Gastrointestinal : No Nausea, No Vomiting, No Diarrhea, No Constipation, No abdominal Pain, No Hematochezia, No Melena Genitourinary : no irregular bleeding, No Dysuria, No Urinary Frequency, No Hematuria, No Urinary Incontinence, No Urgency, No Flank Pain, No Urinary Flow Changes, No Hesitancy Musculoskeletal : No joint pain, No Myalgias, No Joint Swelling Skin : No Skin Lesions, No rash Neuro : No Weakness, No Numbness, No Paresthesias, No Loss of Consciousness, No Dizziness, No Headache Psych : No Anxiety/Panic, No Depression, No SI/HI/AH/VH, No Social Issues, Heme/Lymph: No Bruising, No Bleeding,No Lymphadenopathy Endocrine : No Polyuria, No Polydipsia, No Temperature Intolerance [facility] Past Medical History Medical History No known health problems Polysubstance (including opioids) dependence, daily use Social History Social History Alcohol intake: current Alcohol intake frequency: 3 or more drinks per day Alcohol type: hard liquor Patient Tobacco Use Status: Current everyday Tobacco user Smoked in Last 30 Days: Yes Use of substances other than those prescribed or required for medical reasons: Yes Substance Use Type: Crack/Cocaine, Heroin and Marijuana Last Used Substance: Just Prior to Admission Advance Directives: No Advance Directives Information Provided: Yes Physical Exam Vital Signs: Vital Signs: Last Vital Signs Pulse 106 H 04/16/22 00:45 Resp 33 H 04/16/22 00:45 Pulse Ox 97 04/16/22 00:28 O2 Del Method 04/16/22 00:28 BMI result Body Mass Index 25.9 Const: Other: Appearance: Alert. Oriented X3. Actively withdrawing secondary to Narcan, sneezing, Eyes: Pupils equal, round and reactive to light. ENT: Pharynx normal. Neck: Normal inspection. Neck supple. No lymph nodes noted. No crepitus CVS: Tachycardic with regular rhythm. Pulses normal. Normal S1 and S2 Respiratory: No respiratory distress. Breath sounds normal. No Wheezing. No rales Abdomen: Soft and nontender. No rigidity. No distention. Skin: Skin warm and dry. Normal skin color. Normal skin turgor, diffuse piloerection Extremities: No lower extremity edema. No Lacerations. No Rash Neuro: Oriented X 3. No motor deficit. No sensory deficit. Moving all extremities. No slurred speech. CN 2 through 12 grossly intact Psych: calm, cooperative, normal affect Course Course Course Narrative: Patient was given 2 mg IM Ativan and 50 mg IM of Benadryl. This is not a chemical restraint, given per patient's request to help with the symptoms. Patient's mother would like to Section 35 him in the morning Care team consult pending. Physician observation started at 00:40 Patient was given 5 mg of Haldol as well. Patient remains restless, trying to get out of bed, patient running around naked, trying to urinate on the nurses and techs 10 mg of IM Zyprexa was given Despite given to the patient all the above-mentioned medications, patient remained combative. Patient was given 200 mg of IM ketamine. Patient is now calm, sleeping. Discharge Plan Discharge Clinical Impression: Polysubstance (including opioids) dependence, daily use Patient Disposition: Still a Patient Prescriptions: No Action buprenorphine-naloxone [Suboxone] 8-2 mg Film 2 film SUBLINGUAL DAILY cefadroxil 500 mg capsule 1,000 mg PO BID 7 Days Qty: 28 0RF doxycycline hyclate 100 mg tablet 100 mg PO Q12H 7 Days Qty: 14 0RF chlordiazepoxide HCl 25 mg capsule 50 mg PO BID 4 Days Qty: 16 0RF Rx Instructions: Patient may request partial fill naloxone 4 mg/actuation spray,non-aerosol 4 mg intranasal Q2M PRN (Reason: opioid overdose) Qty: 2 0RF Rx Instructions: spray 1 dose into ONE nostril; alternate nostrils w each dose until help arrives
[2022-04-16] MEDS: LORazepam 2 MG/ML VIAL IM ×2 (00:33→02:18)
[2022-04-16] MEDS: diphenhydrAMINE HCL 50 MG/ML VIAL IM (00:36)
[2022-04-16] MEDS: Haloperidol Lactate 5 MG/ML VIAL IM (01:03)
--- NOTE | 2022-04-16 01:05 | PC.NURSE ---
pt was given 8mg nasal narcan by EMS after being found unresponsive by mother. pt reports taking 10 bags of heroin, some cocaine, drinking a pint of vodka and some whiskey 04/15/22. pt experiencing increased agitation and restlessness following heroin/cocaine/ETOH. pt experiencing visual hallucinations and is requiring constant and repeated redirection from this RN and tech. clothing and belongings search and secured by security. medicated per provider order. unable to obtain accurate vitals due to pt movement.
[2022-04-16] MEDS: OLANZapine 10 MG VIAL IM (01:34)
--- NOTE | 2022-04-16 01:36 | PC.NURSE ---
pt continues to experience increased agitation/restlessness/hallucination, attempting to exit bed, medicated per provider order. EKG, vital, monitors, IV held until pt is calm enough to tolerate.
--- NOTE | 2022-04-16 01:51 | HO.SUDE ---
Pt not appropriate for SUDE at this time.
--- NOTE | 2022-04-16 02:21 | PC.NURSE ---
pt continues to experience increased agitation w difficulty redirecting and keeping pt in bed. medicated per provider order.
[2022-04-16] MEDS: Ketamine HCl/NS 100 MG/10 ML SYRINGE 200 MG IVPUSH (02:50)
--- NOTE | 2022-04-16 02:50 | PC.NURSE ---
2ml of 100mg/ml ketamine given by other nurse for total dose of 200mg IM per provider order. pt continuing to experience increased agitation, restlessness and becoming increasingly aggressive and combative. pt remains somewhat redirectable but continues to try to exit bed. security, provider and charge nurse at bedside.
--- NOTE | 2022-04-16 02:53 | PC.NURSE ---
pt remains too agitated to get accurate vitals/ekg/urine/IV.
--- NOTE | 2022-04-16 03:24 | PC.NURSE ---
Kalen ROLON assumed care of pt from Roberto ROLON at this time. As of now pt has received Ativan 4mg IM, Benadryl 50mg IM, Haldol 5mg IM, Zyprexa 10mg IM, and Ketamine 200mg IM. Pt is now asleep, VSS, on monitor and vital sign checks every 30 minutes. Pt observer is at bedside. Will continue to monitor. Pt is c/o Heroin, Cocaine, ETOH overdose.
--- NOTE | 2022-04-16 08:51 | PC.NURSE ---
spoke wtih mom (Rosetta Barros) regarding plan for pts section 35 - due to the observation of today, courts are closed, mother of pt unable to obtain section 35. mother looking for suggestions/help as she feels her sons next OD will be fatal as this is his second OD in one month. berny reached out to CARE team and wellness coach
--- NOTE | 2022-04-16 14:12 | PC.NURSE ---
unable to complete [place] suicide risk severity scale as pt asleep - pt allowed to sleep at this time
--- NOTE | 2022-04-16 15:25 | MHC.RECOVRN ---
Attempted to meet with pt x3, pt sleeping and difficult to rouse. Pt allowed to continue sleeping.
[2022-04-16] MEDS: Naloxone HCl Nasal TAKE HOME 4 MG SPRAY NOSTRILALT (23:36)
--- NOTE | 2022-04-17 01:30 | PC.NURSE ---
Patient states he feels much better. Patient was patient and waited for discharge paperwork. Patient escorted to decon at security for his belongings. Patient ambulated to exit. Patient states already on methadone.
== END 2022-04-16 23:45 | disposition home or self-care (01) ==
PROVIDERS: Emergency Provider Emergency Medicine; PCP Family Medicine
DX: T40.1X1A Poisoning by heroin, accidental (unintentional), initial encounter (principal); Y92.9 Unspecified place or not applicable; F14.10 Cocaine abuse, uncomplicated; F12.10 Cannabis abuse, uncomplicated; F11.29 Opioid dependence with unspecified opioid-induced disorder; Z71.51 Drug abuse counseling and surveillance of drug abuser; Z79.899 Other long term (current) drug therapy
CPT/HCPCS: 93005; 96372; 96374; 99285; J1200; J2060

== ENCOUNTER 2022-12-22 01:55 | Inpatient (IN) | payer OTHER, SELFPAY ==
--- NOTE | 2022-12-22 | ECG_ITS ---
Test Reason : MEDICAL CLEARANCE Blood Pressure : / mmHG Vent. Rate : 059 BPM Atrial Rate : 059 BPM P-R Int : 150 ms QRS Dur : 108 ms QT Int : 442 ms P-R-T Axes : 057 025 019 degrees QTc Int : 437 ms Sinus bradycardia Incomplete right bundle branch block Cannot rule out Inferior infarct , age undetermined Abnormal ECG When compared with ECG of 16-APR-2022 02:51, Minimal criteria for Inferior infarct are now Present Non-specific change in ST segment in Anterior leads Referred By: Jean Paul Alvares Electronically Signed By:RIKKI CARRANZA
[2022-12-22 01:58] VITALS: BP 144/95; PULSE 95; RESP 16; TEMP 36.7; O2SAT 97; BMI 27.9
--- NOTE | 2022-12-22 02:27 | ED_ITS ---
HPI - Psych General Chief Complaint: Psychiatric Symptoms Stated Complaint: SI w/ attempt Time Seen by Provider: 12/22/22 02:22 Source: patient Mode of arrival: EMS Limitations: no limitations History of Present Illness HPI Narrative: Patient comes to the emergency room complaining of suicidal ideation. Patient states that earlier today he was considering hanging himself. Patient's mother found him with noose in his hand. Patient states that he has history of past suicide attempts, patient takes her medications for anxiety and depression, states that he is compliant with his medication. No HI Related Data Home Medications Medication Instructions Recorded Confirmed bupropion HCl 300 mg 24 hr tablet, 300 mg PO DAILY depressive disorder 12/22/22 12/22/22 extended release nicotine (polacrilex) 2 mg gum 2 gum PO Q2H PRN Nicotine Cravings 12/22/22 12/22/22 quetiapine 100 mg tablet 100 mg PO BEDTIME depressive 12/22/22 12/22/22 disorder risperidone 1 mg tablet 1 mg PO BEDTIME PRN Agitation 12/22/22 12/22/22 Allergies Allergy/AdvReac Type Severity Reaction Status Date / Time amoxicillin [AMOXICILLIN] Allergy Unknown UNKNOWN Verified 04/16/22 00:27 penicillin V Allergy Unknown Hives Verified 04/16/22 00:27 Penicillins [PENICILLINS] Allergy Unknown SWELLING Verified 04/16/22 00:27 Review of Systems Review of Systems: Constitutional : No Weight loss, No Fever, No Chills, No Night Sweats, No Fatigue, No Malaise ENT/Mouth : No Hearing loss, No Ear Pain, No Nasal Congestion, No Sinus Pain, No Hoarseness, No sore throat, No Rhinorrhea, No Swallowing Difficulty Eyes: No Eye Pain, No Swelling, No Redness, No Foreign Body, No Discharge, No Vision Changes Cardiovascular : No Chest Pain, No SOB, No Dyspnea on Exertion, No Orthopnea, No Edema, No Palpitations Respiratory : No Cough, No Sputum, No Wheezing, No Smoke Exposure, No Dyspnea Gastrointestinal : No Nausea, No Vomiting, No Diarrhea, No Constipation, No abdominal Pain, No Hematochezia, No Melena Genitourinary : no irregular bleeding, No Dysuria, No Urinary Frequency, No Hematuria, No Urinary Incontinence, No Urgency, No Flank Pain, No Urinary Flow Changes, No Hesitancy Musculoskeletal : No joint pain, No Myalgias, No Joint Swelling Skin : No Skin Lesions, No rash Neuro : No Weakness, No Numbness, No Paresthesias, No Loss of Consciousness, No Dizziness, No Headache Psych : Complaining of anxiety and depression, suicide attempts, no homicidal ideation Heme/Lymph: No Bruising, No Bleeding,No Lymphadenopathy Endocrine : No Polyuria, No Polydipsia, No Temperature Intolerance [facility] Past Medical History Medical History (Updated 12/22/22 @ 02:29 by Katie Hui MD) No known health problems Polysubstance (including opioids) dependence, daily use Social History Social History Alcohol intake: current Alcohol intake frequency: 0-2 drinks per day Alcohol type: hard liquor Patient Tobacco Use Status: Current everyday Tobacco user Substance Use Type: Heroin Physical Exam Vital Signs: Vital Signs: Last Vital Signs Temp 98.1 F 12/22/22 01:58 Pulse 95 12/22/22 01:58 Resp 16 12/22/22 01:58 BP 144/95 H 12/22/22 01:58 Pulse Ox 97 12/22/22 01:58 O2 Del Method 12/22/22 01:58 BMI result Body Mass Index 27.9 Const: Other: Appearance: Alert. Oriented X3. No acute distress. Eyes: Pupils equal, round and reactive to light. ENT: Pharynx normal. Neck: Normal inspection. Neck supple. No lymph nodes noted. No crepitus CVS: Normal heart rate and rhythm. Pulses normal. Normal S1 and S2 Respiratory: No respiratory distress. Breath sounds normal. No Wheezing. No rales Abdomen: Soft and nontender. No rigidity. No distention. Skin: Skin warm and dry. Normal skin color. Normal skin turgor. Extremities: No lower extremity edema. No Lacerations. No Rash Neuro: Oriented X 3. No motor deficit. No sensory deficit. Moving all extremities. No slurred speech. CN 2 through 12 grossly intact Psych: calm, cooperative, normal affect Course Course Course Narrative: -patient's labs pending -care team consult pending -physician observation at 02:30 -patient is on a Section 12 Discharge Plan Discharge Clinical Impression: Suicidal ideation Patient Disposition: Still a Patient Prescriptions: No Action nicotine (polacrilex) 2 mg gum 2 gum PO Q2H PRN (Reason: Nicotine Cravings) quetiapine 100 mg tablet 100 mg PO BEDTIME risperidone 1 mg tablet 1 mg PO BEDTIME PRN (Reason: Agitation) bupropion HCl 300 mg tablet extended release 24 hr 300 mg PO DAILY Interventions: Hendricks-Suicide Risk Severity Scale Last Done: 12/22/22 02:27
[2022-12-22 02:35] LABS: Appearance Urine Clear; Color Urine Yellow; Glucose Urine UA Negative (Negative); Leukocyte Esterase Urine Negative (Negative); Nitrite Urine Negative (Negative); PH 5.5 (5.0-9.0); Specific Gravity - Urine >= 1.030 (1.005-1.025); Urine Blood Negative (Negative); Urine Ketones 40 mg/dL (Negative); Urine Protein Trace mg/dL (Neg-Trace)
[2022-12-22 02:47] LABS: Amphetamine Screen Urine POSITIVE (Not Detect); Barbiturates, Urine Not Detected (Not Detect); Benzodiazepines Screen Urine Not Detected (Not Detect); Cannabinoid Screen Urine POSITIVE (Not Detect); Cocaine Screen Urine POSITIVE (Not Detect); Fentanyl, urine POSITIVE (Not Detect); Opiate Screen Urine POSITIVE (Not Detect); Phencyclidine Screen Urine Not Detected (Not Detect)
[2022-12-22 02:50] LABS: COVID-19 Test Negative (Negative); IDNOW Serial# 6674DD1D
[2022-12-22 03:00] LABS: MANUAL DIFF FLAG NO
[2022-12-22 03:01] LABS: Basophils Percent Auto 0.5 % (0-2); Eosinophils Percent Auto 0.3 % (0-4); Hematocrit 38.7 % (42.0-52.0); Hemoglobin 13.1 g/dl (14.0-18.0); Imm Gran Abs Auto 0.01 X10*3/uL (0.00-0.03); Imm Gran Pct Auto 0.2 % (0.0-0.4); Lymphocytes Absolute Auto 0.8 X10*3/uL (1.2-4.9); Mean Corpuscular HGB Conc 33.9 g/dl (31.0-36.0); Mean Corpuscular Hemoglobin 26.7 pg (27.0-33.0); Mean Platelet Volume 9.7 fL (9.4-12.4); Monocytes Absolute Auto 0.3 X10*3/uL (0.1-1.2); Monocytes Percent Auto 4.7 % (2-11); Neutrophils Absolute Auto 4.8 x10*3/uL (2.0-8.3); Neutrophils Percent Auto 80.3 % (45-73); Platelet Count 229 X10*3/uL (160-400); Red Cell Distribution Width 14.6 % (11.0-16.0)
[2022-12-22 03:17] LABS: Alanine Aminotransferase 50 U/L (0-40); Albumin Level 4.8 g/dL (3.5-5.0); Alkaline Phosphatase 90 U/L (39-117); Anion Gap 17 (12-20); Aspartate Amino Transferase 71 U/L (5-37); Blood Urea Nitrogen 16 mg/dL (9-16); Calcium 9.6 mg/dL (8.4-10.2); Carbon Dioxide 24 mmol/L (22-29); Chloride 101 mmol/L (96-108); Creatinine Clr Calc Pharmacy 124.7; Estimated Glomerular Filt Rate > 60; Glucose Fasting 92 mg/dL (60-99); Potassium 3.8 mmol/L (3.3-5.1); Sodium 138 mmol/L (135-145); Total Protein 7.9 g/dL (6.5-8.0)
[2022-12-22 03:26] LABS: Acetaminophen LAB < 17 mcg/mL (<30); Ethanol < 10 mg/dL; Salicylate < 5.0 mg/dL (15-30)
[2022-12-22] MEDS: LORazepam 1 MG TABLET 2 MG PO (04:02)
--- NOTE | 2022-12-22 06:43 | PC.NURSE ---
Patient slept through the night, no distress observed/reported, behavior non concerning, med rec completed/pending provider's approval, Ativan 2 mg po administered at 0402 with + effect, care consult ordered/pending evaluation, VSS, will continue to monitor.
--- NOTE | 2022-12-22 16:01 | MHC.CARE ---
Pt seen by CARE team and pending transfer to for inpatient psychiatric admission.
--- NOTE | 2022-12-22 16:22 | PC.NURSE ---
Report called and given to ОЛЬГА Brooks. Awaiting bed placement order.
[2022-12-22] MEDS: hydrOXYzine HCL 50 MG TABLET PO (18:31)
[2022-12-22 19:00] VITALS: BMI 29.0
[2022-12-22 19:31] VITALS: BP 148/94; PULSE 67; RESP 16; TEMP 36.6; O2SAT 98
[2022-12-22] MEDS: methADONE HCl 20 MG/2 ML ORAL.CONC PO (19:45)
[2022-12-22] MEDS: QUEtiapine Fumarate 100 MG TABLET PO (19:46)
[2022-12-22 20:44] VITALS: BP 99/51; PULSE 61; RESP 16; TEMP 36.6; O2SAT 98
--- NOTE | 2022-12-22 22:15 | PC.ADMIT ---
Pt is a 32-year-old, , Serbian speaking male admitted on CV for SI concerns after his mother found him with a noose in his hands. Pt has a history of SI which landed him here at [facility] and was subsequently discharged a couple of weeks ago. Pt is Alert and oriented x4, VSS, Covid negative, Tox screen is positive for cocaine, fentanyl, opiates, THC. Pt appears disheveled, calm and cooperative. He seems to be med seeking as he is fixated on medication. Impulse, insight and judgment is poor as Pt continues to abuse drugs and puts himself in unsafe situations. Speech is regular with normal rhythm, tone and kristan. Pt denies SI/HI/AH/VH. Pt refuses to take flu shot. He denies having a PCP. Admission orders obtained.
[2022-12-23 07:55] LABS: Alanine Aminotransferase 34 U/L (0-40); Albumin Level 3.8 g/dL (3.5-5.0); Alkaline Phosphatase 74 U/L (39-117); Anion Gap 13 (12-20); Aspartate Amino Transferase 34 U/L (5-37); Bilirubin Total 0.6 mg/dL (0.0-1.0); Blood Urea Nitrogen 16 mg/dL (9-16); Carbon Dioxide 26 mmol/L (22-29); Chloride 108 mmol/L (96-108); Cholesterol 266 mg/dL; Creatinine Clr Calc Pharmacy 150.1; Estimated Glomerular Filt Rate > 60; Glucose Fasting 98 mg/dL (60-99); HDL Cholesterol 55 mg/dL; LDL Cholesterol Calculated 192 mg/dl; Potassium 3.8 mmol/L (3.3-5.1); Sodium 143 mmol/L (135-145); Total Protein 6.3 g/dL (6.5-8.0); Triglycerides 96 mg/dL
[2022-12-23 08:24] LABS: Folate 9.4 ng/mL (> or = 4.0); Free T4 (Free Thyroxine) 0.87 ng/dL (0.71-1.85); Thyroid Stimulating Hormone 2.82 uIU/mL (0.32-4.0); Vitamin B12 307 pg/mL (200-900)
[2022-12-23] MEDS: buPROPion HCl XL 300 MG TAB.ER.24H PO (08:50)
[2022-12-23] MEDS: hydrOXYzine HCL 50 MG TABLET PO (08:55)
[2022-12-23 08:56] VITALS: BP 130/69; PULSE 96; RESP 18; TEMP 36.9; O2SAT 96
[2022-12-23] MEDS: cloNIDine HCL 0.1 MG TABLET PO (08:56)
--- NOTE | 2022-12-23 09:23 | PC.NURSE ---
Methadone dose verified with [facility] [place]. Spoke to Raissa Martinez [phone]. Last dose 12/16/[address] Donahue notified.
--- NOTE | 2022-12-23 09:45 | HE.PHANOTE ---
Methadone verification: last dose of 140 mg dosed on 12/16/22 @1202 with [facility]. [phone]
[2022-12-23] MEDS: methADONE HCl 20 MG/2 ML ORAL.CONC 100 MG PO (09:50)
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
[2022-12-23 18:00] VITALS: BP 125/73; PULSE 54; RESP 18; TEMP 36.6; O2SAT 99
[2022-12-23] MEDS: QUEtiapine Fumarate 100 MG TABLET PO (20:55)
[2022-12-24 08:41] VITALS: BP 117/69; PULSE 56; RESP 18; TEMP 36.7; O2SAT 96
[2022-12-24] MEDS: buPROPion HCl XL 300 MG TAB.ER.24H PO (08:51)
[2022-12-24] MEDS: methADONE HCl 20 MG/2 ML ORAL.CONC 140 MG PO (08:51)
[2022-12-24] MEDS: ARIPiprazole 5 MG TABLET PO ×2 (08:52→11:42)
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
[2022-12-24 16:35] VITALS: BP 137/75; PULSE 51; TEMP 36.4
[2022-12-24] MEDS: Gabapentin 300 MG CAPSULE PO ×2 (17:26→20:19)
[2022-12-24] MEDS: QUEtiapine Fumarate 100 MG TABLET PO (20:18)
[2022-12-25] MEDS: Gabapentin 300 MG CAPSULE PO ×3 (08:47→19:44)
[2022-12-25] MEDS: ARIPiprazole 5 MG TABLET PO (08:47)
[2022-12-25] MEDS: methADONE HCl 20 MG/2 ML ORAL.CONC 140 MG PO (08:47)
[2022-12-25] MEDS: buPROPion HCl XL 300 MG TAB.ER.24H PO (08:47)
[2022-12-25 08:53] VITALS: BP 136/83; PULSE 52; RESP 20; TEMP 36.8; O2SAT 97
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
[2022-12-25] MEDS: clonazePAM 0.5 MG TABLET PO ×2 (13:05→19:44)
[2022-12-25] MEDS: Nicotine Polacrilex 2 MG GUM BUCCAL ×2 (14:33→20:44)
[2022-12-25 19:38] VITALS: BP 142/90; PULSE 65; RESP 16; TEMP 37.1; O2SAT 98
[2022-12-25] MEDS: QUEtiapine Fumarate 100 MG TABLET PO (19:44)
[2022-12-25] MEDS: cloNIDine HCL 0.1 MG TABLET PO (21:31)
[2022-12-25] MEDS: hydrOXYzine HCL 50 MG TABLET PO (21:31)
[2022-12-26] MEDS: clonazePAM 0.5 MG TABLET PO ×3 (08:35→19:12)
[2022-12-26] MEDS: ARIPiprazole 5 MG TABLET PO (08:35)
[2022-12-26] MEDS: buPROPion HCl XL 150 MG TAB.ER.24H 450 MG PO (08:35)
[2022-12-26] MEDS: Gabapentin 300 MG CAPSULE PO ×2 (08:35→14:32)
[2022-12-26] MEDS: methADONE HCl 20 MG/2 ML ORAL.CONC 140 MG PO (08:35)
[2022-12-26 08:41] VITALS: BP 119/89; PULSE 68; RESP 18; TEMP 36.8; O2SAT 98
[2022-12-26] MEDS: cloNIDine HCL 0.1 MG TABLET PO ×2 (09:29→17:16)
[2022-12-26] MEDS: Nicotine Polacrilex 2 MG GUM BUCCAL (09:29)
[2022-12-26 09:33] VITALS: BP 135/88
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
[2022-12-26 17:10] VITALS: BP 135/85; PULSE 60; RESP 14; TEMP 37.2
[2022-12-26] MEDS: Nicotine Polacrilex Lozenge 4 MG LOZENGE BUCCAL ×2 (17:16→19:11)
[2022-12-26] MEDS: Gabapentin 400 MG CAPSULE PO (19:12)
[2022-12-26] MEDS: QUEtiapine Fumarate 100 MG TABLET PO (19:12)
[2022-12-26] MEDS: lamoTRIgine 25 MG TABLET PO (19:12)
[2022-12-27] MEDS: methADONE HCl 20 MG/2 ML ORAL.CONC 140 MG PO (08:42)
[2022-12-27] MEDS: buPROPion HCl XL 150 MG TAB.ER.24H 450 MG PO (08:43)
[2022-12-27] MEDS: clonazePAM 0.5 MG TABLET PO ×3 (08:43→19:10)
[2022-12-27] MEDS: ARIPiprazole 5 MG TABLET PO (08:43)
[2022-12-27] MEDS: Gabapentin 400 MG CAPSULE PO ×3 (08:43→19:11)
[2022-12-27 08:45] VITALS: BP 132/85; PULSE 63; RESP 18; TEMP 36.7; O2SAT 99
[2022-12-27 09:08] VITALS: BMI 29.3
[2022-12-27] MEDS: Nicotine Polacrilex Lozenge 4 MG LOZENGE BUCCAL ×4 (10:02→22:00)
[2022-12-27] MEDS: cloNIDine HCL 0.1 MG TABLET PO (10:39)
[2022-12-27 10:45] VITALS: BP 140/96
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
[2022-12-27 17:19] VITALS: BP 125/73; PULSE 74; RESP 16; TEMP 36.6; O2SAT 98
[2022-12-27] MEDS: QUEtiapine Fumarate 100 MG TABLET PO (19:11)
[2022-12-27] MEDS: OXcarbazepine 150 MG TABLET PO ×2 (19:11→21:17)
[2022-12-27] MEDS: lamoTRIgine 25 MG TABLET PO (19:12)
[2022-12-27] MEDS: Buprenorphine/Naloxone 2/0.5mg FILM 0.25 FILM SUBLINGUAL (21:15)
[2022-12-27] MEDS: traZODone HCL 50 MG TABLET PO (22:00)
[2022-12-28 08:00] VITALS: BP 125/64; PULSE 61; RESP 12; TEMP 36.4; O2SAT 98
[2022-12-28] MEDS: buPROPion HCl XL 150 MG TAB.ER.24H 450 MG PO (08:45)
[2022-12-28] MEDS: Gabapentin 400 MG CAPSULE PO (08:45)
[2022-12-28] MEDS: Buprenorphine/Naloxone 2/0.5mg FILM 0.25 FILM SUBLINGUAL ×2 (08:45→20:06)
[2022-12-28] MEDS: clonazePAM 0.5 MG TABLET PO ×3 (08:45→19:58)
[2022-12-28] MEDS: OXcarbazepine 150 MG TABLET PO ×2 (08:49→14:01)
[2022-12-28] MEDS: methADONE HCl 20 MG/2 ML ORAL.CONC 140 MG PO (09:51)
[2022-12-28] MEDS: Cyclobenzaprine HCl 10 MG TABLET PO ×3 (12:03→21:13)
[2022-12-28] MEDS: Nicotine Polacrilex Lozenge 4 MG LOZENGE BUCCAL ×5 (12:17→21:54)
[2022-12-28] MEDS: Gabapentin 300 MG CAPSULE 600 MG PO ×2 (14:02→20:00)
[2022-12-28] MEDS: Nicotine 21 MG PATCH.TD24 TRANSDERMA (15:44)
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
[2022-12-28 17:00] VITALS: BP 141/94; PULSE 79; TEMP 425.3; TEMP 797.5
[2022-12-28] MEDS: cloNIDine HCL 0.1 MG TABLET PO ×2 (17:04→21:55)
[2022-12-28] MEDS: hydrOXYzine HCL 50 MG TABLET PO (18:14)
[2022-12-28] MEDS: lamoTRIgine 25 MG TABLET PO (19:59)
[2022-12-28] MEDS: QUEtiapine Fumarate 100 MG TABLET PO (20:00)
[2022-12-28] MEDS: traZODone HCL 50 MG TABLET PO (22:56)
[2022-12-29] MEDS: OXcarbazepine 150 MG TABLET PO ×2 (08:26→14:21)
[2022-12-29] MEDS: Gabapentin 300 MG CAPSULE 600 MG PO ×3 (08:26→19:34)
[2022-12-29] MEDS: clonazePAM 0.5 MG TABLET PO ×3 (08:26→19:34)
[2022-12-29] MEDS: buPROPion HCl XL 150 MG TAB.ER.24H 450 MG PO (08:26)
[2022-12-29] MEDS: Buprenorphine/Naloxone 2/0.5mg FILM 0.5 FILM SUBLINGUAL ×2 (08:28→19:34)
[2022-12-29 08:36] VITALS: BP 122/72; PULSE 65; RESP 16; TEMP 36.4; O2SAT 97
[2022-12-29] MEDS: Cyclobenzaprine HCl 10 MG TABLET PO ×3 (09:19→17:32)
[2022-12-29] MEDS: methADONE HCl 20 MG/2 ML ORAL.CONC 140 MG PO (09:20)
[2022-12-29] MEDS: Nicotine Polacrilex Lozenge 4 MG LOZENGE BUCCAL ×3 (09:37→16:59)
[2022-12-29] MEDS: Nicotine 21 MG PATCH.TD24 TRANSDERMA (09:37)
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
[2022-12-29] MEDS: hydrOXYzine HCL 50 MG TABLET PO (15:02)
[2022-12-29 17:33] VITALS: BP 138/83; PULSE 78; RESP 14; TEMP 36.6
[2022-12-29] MEDS: cloNIDine HCL 0.1 MG TABLET PO (17:33)
[2022-12-29] MEDS: QUEtiapine Fumarate 100 MG TABLET PO (19:34)
[2022-12-29] MEDS: lamoTRIgine 25 MG TABLET PO (19:34)
[2022-12-29] MEDS: traZODone HCL 50 MG TABLET PO (19:34)
[2022-12-30] MEDS: Cyclobenzaprine HCl 10 MG TABLET PO ×3 (05:12→19:18)
[2022-12-30] MEDS: hydrOXYzine HCL 50 MG TABLET PO ×2 (05:13→15:13)
[2022-12-30] MEDS: clonazePAM 0.5 MG TABLET PO ×3 (08:13→19:19)
[2022-12-30] MEDS: OXcarbazepine 150 MG TABLET PO ×2 (08:13→14:14)
[2022-12-30] MEDS: buPROPion HCl XL 150 MG TAB.ER.24H 450 MG PO (08:13)
[2022-12-30] MEDS: Gabapentin 300 MG CAPSULE 600 MG PO (08:13)
[2022-12-30] MEDS: Buprenorphine/Naloxone 2/0.5mg FILM 1 FILM SUBLINGUAL ×2 (08:13→19:19)
[2022-12-30] MEDS: methADONE HCl 20 MG/2 ML ORAL.CONC 140 MG PO (09:13)
[2022-12-30] MEDS: Nicotine 21 MG PATCH.TD24 TRANSDERMA (09:14)
[2022-12-30 09:19] VITALS: BP 131/76; PULSE 98; RESP 16; TEMP 36.7; O2SAT 98
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
[2022-12-30] MEDS: Nicotine Polacrilex Lozenge 4 MG LOZENGE BUCCAL ×3 (11:50→20:18)
[2022-12-30] MEDS: cloNIDine HCL 0.1 MG TABLET PO (11:51)
[2022-12-30 11:54] VITALS: BP 129/75; PULSE 83
[2022-12-30] MEDS: Gabapentin 400 MG CAPSULE 800 MG PO ×2 (14:14→19:19)
[2022-12-30 18:00] VITALS: BP 151/87; PULSE 92; RESP 14; TEMP 36.6
[2022-12-30] MEDS: lamoTRIgine 25 MG TABLET PO (19:18)
[2022-12-30] MEDS: traZODone HCL 50 MG TABLET PO (19:19)
[2022-12-30] MEDS: QUEtiapine Fumarate 100 MG TABLET PO (19:19)
[2022-12-31 06:00] VITALS: BP 129/91; PULSE 86; RESP 14; TEMP 37.1; O2SAT 98
[2022-12-31] MEDS: clonazePAM 0.5 MG TABLET PO ×3 (08:49→19:44)
[2022-12-31] MEDS: Buprenorphine/Naloxone 4/1 mg FILM 1 FILM SUBLINGUAL ×2 (08:49→19:44)
[2022-12-31] MEDS: Gabapentin 400 MG CAPSULE 800 MG PO ×3 (08:49→19:44)
[2022-12-31] MEDS: OXcarbazepine 150 MG TABLET PO ×2 (08:49→14:08)
[2022-12-31] MEDS: buPROPion HCl XL 150 MG TAB.ER.24H 450 MG PO (08:49)
[2022-12-31] MEDS: methADONE HCl 20 MG/2 ML ORAL.CONC 140 MG PO (09:57)
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
[2022-12-31 11:53] VITALS: BP 145/88; PULSE 84
[2022-12-31] MEDS: cloNIDine HCL 0.1 MG TABLET PO ×3 (11:53→19:42)
--- NOTE | 2022-12-31 13:03 | HO.ADDICTCON ---
History of Present Illness Date of Service: 12/31/2022 Chief Complaint: Depression Reason for Consult: methadone to buprenorphine cross taper Sources of Information: patient interviewed and chart reviewed HPI Narrative: Patient is a 32 year old male currently admitted to unit. On methadone 140mg QD and expressed desire to transition to suboxone while here due to challenges with transportation and work and getting to clinic every day. He reports he was using close to half a pack of heroin/fentanyl daily prior to admission. Was started on microdose suboxone titration on evening (12/27/22) by attending psychiatric provider, and since then has been c/o (mild) withdrawal sx. Patient seen by this va underwriter and acoustical tile carpenters supervisor on M5. He was awake, alert, pleasant and engaged in interview. Reporting withdrawal sx as tolerable, but uncomfortable . Reports restlessness, chills, sweats, and stomach knots . Gabapentin was increased yesterday by attending provider, patient reports this was helpful. Patient requesting to have Klonopin increased while here to assist with the transition. Discussed other comfort medications, including Clonidine and patient replied, Klonopin has worked for me when I was withdrawing at home, I took 3mg a day and it helped Discussed pausing cross taper and patient declined stating he wants to get this done. He was concerned that Naloxone in Suboxone was contrinbuting to feelings of withdrawal, this va underwriter assured patient Naloxone was inert as long as he was taking it SL. Sx, more likely related to large amounts of fentanyl patient was using prior to admission. Past Psychiatric History: Recent hospitalization at [facility] 11/2022. Opioid use disorder on methadone. Reports self harm in teenage years Multiple trials of medications for depression. Reports Prozac made him agitated and Zoloft didn't work . Wellbutrin has been more helpful. Review of Systems Constitutional: Reports as per HPI Diagnostics Vital Signs (24Hr): Vital Signs - 24 hr 12/30/22 18:00 12/31/22 06:00 12/31/22 11:53 Temperature 97.9 F 98.8 F Pulse Rate 92 86 84 Respiratory Rate 14 14 Blood Pressure 151/87 H 129/91 H 145/88 H Pulse Oximetry 98 Oxygen Delivery Method Room Air BMI result Body Mass Index 29.3 Labs 12/22/22 02:56 12/23/22 07:19 Mental Status Exam Mental Status Exam Patient Appearance: Well Grooomed and Appropriate Level of Consciousness: Awake, Appropriate and Alert Patient Behavior: Appropriate and Talkative Medications Medications Current Medications Acetaminophen (Acetaminophen 325 Mg Tablet) 650 mg PO Q6H PRN PRN Reason: Headache/Pain Mild Scale (1-3) Al Hydroxide/Mg Hydroxide (Magnesium Hydrox/Alum Hydrox 30 Ml Oral.Susp) 30 ml PO Q6H PRN PRN Reason: Heartburn/Nausea Buprenorphine/Naloxone (Buprenorphine/Naloxone 4/1 Mg Film) 1 film SUBLINGUAL BID [facility] Stop: 01/01/23 21:00 Last Admin: 12/31/22 08:49 Dose: 1 film Buprenorphine/Naloxone (Buprenorphine/Naloxone 8/2 Mg Film) 1 film SUBLINGUAL DAILY [facility] Stop: 01/02/23 21:00 Buprenorphine/Naloxone (Buprenorphine/Naloxone 4/1 Mg Film) 1 film SUBLINGUAL BEDTIME [facility] Stop: 01/02/23 22:00 Buprenorphine/Naloxone (Buprenorphine/Naloxone 8/2 Mg Film) 1 film SUBLINGUAL BID [facility] Bupropion HCl (Bupropion Hcl Xl 150 Mg Tab.Er.24h) 450 mg PO DAILY [facility] Last Admin: 12/31/22 08:49 Dose: 450 mg Clonazepam (Clonazepam 0.5 Mg Tablet) 0.5 mg PO TID [facility] Last Admin: 12/31/22 08:49 Dose: 0.5 mg Clonidine HCl (Clonidine Hcl 0.1 Mg Tablet) 0.1 mg PO TID [facility]; Protocol Last Admin: 12/31/22 11:53 Dose: 0.1 mg Clonidine HCl (Clonidine Hcl 0.1 Mg Tablet) 0.1 mg PO Q4H PRN; Protocol PRN Reason: Anxiety Last Admin: 12/30/22 11:51 Dose: 0.1 mg Cyclobenzaprine HCl (Cyclobenzaprine Hcl 10 Mg Tablet) 10 mg PO TID PRN PRN Reason: muscle aches Last Admin: 12/30/22 19:18 Dose: 10 mg Dicyclomine HCl (Dicyclomine Hcl 10 Mg Capsule) 10 mg PO QID PRN PRN Reason: abdominal pain Gabapentin (Gabapentin 400 Mg Capsule) 800 mg PO TID [facility] Last Admin: 12/31/22 08:49 Dose: 800 mg Hydroxyzine HCl (Hydroxyzine Hcl 50 Mg Tablet) 50 mg PO Q6H PRN PRN Reason: Anxiety Last Admin: 12/30/22 15:13 Dose: 50 mg Ibuprofen (Ibuprofen 800 Mg Tablet) 800 mg PO QID PRN PRN Reason: moderate and severe pain Lamotrigine (Lamotrigine 25 Mg Tablet) 25 mg PO BEDTIME [facility] Last Admin: 12/30/22 19:18 Dose: 25 mg Loperamide HCl (Loperamide Hcl 2 Mg Capsule) 2 mg PO Q4H PRN PRN Reason: diarrhea Magnesium Hydroxide (Milk Of Magnesia 30 Ml Oral.Susp) 30 ml PO DAILY PRN PRN Reason: Constipation Methadone HCl (Methadone Hcl 20 Mg/2 Ml Oral.Conc) 140 mg PO DAILY@1000 [facility] Stop: 01/02/23 23:59 Last Admin: 12/31/22 09:57 Dose: 140 mg Nicotine (Nicotine 21 Mg Patch.Td24) 21 mg TRANSDERMA DAILY [facility] Last Admin: 12/31/22 08:54 Dose: Not Given Nicotine Polacrilex (Nicotine Polacrilex Lozenge 4 Mg Lozenge) 4 mg BUCCAL Q2H PRN PRN Reason: Nicotine Cravings Last Admin: 12/30/22 20:18 Dose: 4 mg Ondansetron HCl (Ondansetron Odt 4 Mg Tab.Rapdis) 4 mg TRANSLINGU QID PRN PRN Reason: Opiate Withdrawal Oxcarbazepine (Oxcarbazepine 150 Mg Tablet) 150 mg PO BID@0900,1400 [facility] Last Admin: 12/31/22 08:49 Dose: 150 mg Quetiapine Fumarate (Quetiapine Fumarate 100 Mg Tablet) 100 mg PO BEDTIME [facility] Last Admin: 12/30/22 19:19 Dose: 100 mg Trazodone HCl (Trazodone Hcl 50 Mg Tablet) 50 mg PO BEDTIME MRX1 PRN PRN Reason: Insomnia Last Admin: 12/30/22 19:19 Dose: 50 mg Allergies Allergies Allergy/AdvReac Type Severity Reaction Status Date / Time amoxicillin [AMOXICILLIN] Allergy Unknown UNKNOWN Verified 04/16/22 00:27 penicillin V Allergy Unknown Hives Verified 04/16/22 00:27 Penicillins [PENICILLINS] Allergy Unknown SWELLING Verified 04/16/22 00:27 Assessment & Plan Assessment & Plan (1) Opioid use disorder: Status: Acute Code(s): F11.90 - Opioid use, unspecified, uncomplicated Assessment and Plan: patient wishes to continue with current transition plan consider scheduling clonidine TID, instead of having it PRN as he has only been taking it once per day--may help with restlessness he is reporting please re consult if needed Total time managing care of this patient today __45__ minutes. [facility] Past Medical History Medical History No known health problems Polysubstance (including opioids) dependence, daily use Social History Social History Household Members: Other Housing: Homeless Do you presently have visiting nurse or other home services: No Alcohol intake: current Alcohol intake frequency: 0-2 drinks per day Alcohol type: hard liquor Patient Tobacco Use Status: Current everyday Tobacco user Tobacco use type: Cigarette Cigarette Packs Per Day: 1 Cigarettes Per Day: 20.0 Years Smoked: 10 Smoked in Last 30 Days: Yes e-Cigarette/Vaping Use: Currently Using Patient Interested in Nicotine Replacement: Yes Patient Given Instructions on How to Stop Smoking: Yes Date Education Initiated: 12/22/22 Second Hand Smoke Exposure: No Use of substances other than those prescribed or required for medical reasons: Yes Substance Use Type: Amphetamines, Crack/Cocaine, Marijuana and Opiates Substance Use Type Other:: fentanyl Substance Use Frequency: Daily Last Used Substance: Days (ago) Currently Displaying Signs/Symptoms of Drug Intoxication Withdrawal: No Any prior treatment program specific to substance use: Yes Have you been hit, kicked, punched, or otherwise hurt by someone within the past year? If so, by whom?: No Do you feel safe in your current relationship?: Yes Is there a partner from a previous relationship who is making you feel unsafe now?: No Are you made to feel afraid or neglected: No Spiritual Healthcare Practices: No issues noted/reported. Focused assessment declined Alevism Healthcare Practices: No issues noted/reported. Focused assessment declined Cultural Healthcare Practices: No issues noted/reported. Focused assessment declined Advance Directives: No Advance Directives Information Provided: No Healthcare Proxy: No Guardian: No Do you have thoughts of harming others: None Do you have a plan to hurt others: No Plan Recently lost weight without trying: No How much weight loss: Not applicable Eating poorly because of decreased appetite: No Nutrition screen score: 0 Nutrition Risks: No Nutritional Risk Poor oral hygiene: No service: No Sexual orientation: Straight/Heterosexual
[2022-12-31 14:36] VITALS: BP 140/71
[2022-12-31] MEDS: Cyclobenzaprine HCl 10 MG TABLET PO (16:44)
[2022-12-31] MEDS: Nicotine 21 MG PATCH.TD24 TRANSDERMA (17:38)
[2022-12-31] MEDS: Nicotine Polacrilex Lozenge 4 MG LOZENGE BUCCAL (17:39)
[2022-12-31 19:40] VITALS: BP 130/78; PULSE 85; TEMP 36.3
[2022-12-31] MEDS: lamoTRIgine 25 MG TABLET PO (19:43)
[2022-12-31] MEDS: hydrOXYzine HCL 50 MG TABLET PO (21:04)
[2022-12-31] MEDS: QUEtiapine Fumarate 100 MG TABLET PO (21:04)
[2023-01-01] MEDS: Buprenorphine/Naloxone 4/1 mg FILM 1 FILM SUBLINGUAL ×3 (09:03→19:42)
[2023-01-01] MEDS: Nicotine 21 MG PATCH.TD24 TRANSDERMA (09:03)
[2023-01-01] MEDS: cloNIDine HCL 0.1 MG TABLET PO ×3 (09:03→19:45)
[2023-01-01] MEDS: OXcarbazepine 150 MG TABLET PO ×2 (09:03→14:43)
[2023-01-01] MEDS: clonazePAM 0.5 MG TABLET PO ×4 (09:03→22:25)
[2023-01-01] MEDS: buPROPion HCl XL 150 MG TAB.ER.24H 450 MG PO (09:04)
[2023-01-01] MEDS: Gabapentin 400 MG CAPSULE 800 MG PO ×3 (09:04→19:38)
[2023-01-01 09:22] VITALS: BP 122/72; PULSE 81; RESP 18; TEMP 36.6; O2SAT 97
[2023-01-01] MEDS: methADONE HCl 20 MG/2 ML ORAL.CONC 140 MG PO (10:21)
[2023-01-01] MEDS: Nicotine Polacrilex Lozenge 4 MG LOZENGE BUCCAL ×3 (11:10→19:37)
[2023-01-01] MEDS: Cyclobenzaprine HCl 10 MG TABLET PO ×2 (11:10→19:38)
[2023-01-01] MEDS: hydrOXYzine HCL 50 MG TABLET PO ×2 (11:13→19:38)
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
[2023-01-01 18:00] VITALS: BP 144/87; PULSE 84; RESP 20; TEMP 36.4; O2SAT 97
[2023-01-01] MEDS: traZODone HCL 50 MG TABLET PO (19:37)
[2023-01-01] MEDS: QUEtiapine Fumarate 100 MG TABLET PO (19:39)
[2023-01-01] MEDS: lamoTRIgine 25 MG TABLET PO (19:39)
--- NOTE | 2023-01-02 07:02 | PC.NURSE ---
pt signed a 3 day notice on saturday01/02/23. three day notice up on saturday01/07/23.
[2023-01-02] MEDS: Buprenorphine/Naloxone 8/2 mg FILM 1 FILM SUBLINGUAL ×2 (08:36→21:20)
[2023-01-02] MEDS: buPROPion HCl XL 150 MG TAB.ER.24H 450 MG PO (08:36)
[2023-01-02] MEDS: OXcarbazepine 150 MG TABLET PO (08:37)
[2023-01-02] MEDS: Gabapentin 400 MG CAPSULE 800 MG PO ×3 (08:38→19:36)
[2023-01-02] MEDS: clonazePAM 0.5 MG TABLET PO ×2 (08:38→19:37)
[2023-01-02] MEDS: cloNIDine HCL 0.1 MG TABLET PO ×3 (08:38→19:37)
[2023-01-02 08:42] VITALS: BP 132/84; PULSE 73; RESP 18; TEMP 36.7; O2SAT 97
[2023-01-02] MEDS: methADONE HCl 20 MG/2 ML ORAL.CONC 140 MG PO (10:00)
[2023-01-02] MEDS: Cyclobenzaprine HCl 10 MG TABLET PO ×2 (10:04→19:38)
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
[2023-01-02] MEDS: hydrOXYzine HCL 50 MG TABLET PO ×2 (11:45→21:20)
[2023-01-02] MEDS: Nicotine Polacrilex Lozenge 4 MG LOZENGE BUCCAL (12:49)
[2023-01-02] MEDS: OXcarbazepine 300 MG TABLET PO (14:48)
[2023-01-02 14:58] VITALS: BP 127/71
[2023-01-02 19:20] VITALS: BP 116/73; PULSE 76; TEMP 36.5
[2023-01-02] MEDS: QUEtiapine Fumarate 100 MG TABLET PO (19:36)
[2023-01-02] MEDS: lamoTRIgine 25 MG TABLET PO (19:40)
--- NOTE | 2023-01-02 19:49 | MHC.RECOVSUP ---
pt is a 32yr old male who wanted to see a recovery operator. i went to see pt ,but he was in the middle of arguing with the nurse about his meds. i was able to give pt my card and i told him that someone from the recovery operator team will see him tomorrow.
[2023-01-02] MEDS: traZODone HCL 50 MG TABLET PO (21:20)
[2023-01-03 06:00] VITALS: BP 115/70; PULSE 78; RESP 18
[2023-01-03 07:00] VITALS: BMI 29.5
[2023-01-03] MEDS: Gabapentin 400 MG CAPSULE 800 MG PO ×3 (08:05→20:20)
[2023-01-03] MEDS: OXcarbazepine 300 MG TABLET PO ×2 (08:05→14:03)
[2023-01-03] MEDS: Buprenorphine/Naloxone 8/2 mg FILM 1 FILM SUBLINGUAL ×2 (08:05→09:53)
[2023-01-03] MEDS: cloNIDine HCL 0.1 MG TABLET PO ×4 (08:05→20:19)
[2023-01-03] MEDS: clonazePAM 0.5 MG TABLET PO ×2 (08:05→20:20)
[2023-01-03] MEDS: buPROPion HCl XL 150 MG TAB.ER.24H 450 MG PO (08:05)
[2023-01-03] MEDS: Nicotine 21 MG PATCH.TD24 TRANSDERMA (08:06)
[2023-01-03] MEDS: Cyclobenzaprine HCl 10 MG TABLET PO ×3 (08:26→20:21)
[2023-01-03] MEDS: Nicotine Polacrilex Lozenge 4 MG LOZENGE BUCCAL ×2 (08:26→18:54)
[2023-01-03] MEDS: hydrOXYzine HCL 50 MG TABLET PO (11:42)
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
[2023-01-03 13:53] VITALS: BP 131/80; PULSE 80; RESP 16
[2023-01-03 16:45] VITALS: BP 121/59; PULSE 79; TEMP 36.5
[2023-01-03] MEDS: lamoTRIgine 25 MG TABLET PO (20:20)
[2023-01-03] MEDS: traZODone HCL 50 MG TABLET PO (20:21)
[2023-01-03] MEDS: QUEtiapine Fumarate 100 MG TABLET PO (20:22)
[2023-01-04 08:11] VITALS: BP 119/71; PULSE 90; RESP 18; TEMP 36.6; O2SAT 98
[2023-01-04] MEDS: buPROPion HCl XL 150 MG TAB.ER.24H 450 MG PO (08:16)
[2023-01-04] MEDS: Gabapentin 400 MG CAPSULE 800 MG PO (08:17)
[2023-01-04] MEDS: OXcarbazepine 300 MG TABLET PO (08:17)
[2023-01-04] MEDS: cloNIDine HCL 0.1 MG TABLET PO (08:17)
[2023-01-04] MEDS: clonazePAM 0.5 MG TABLET PO (08:17)
[2023-01-04] MEDS: Buprenorphine/Naloxone 8/2 mg FILM 2 FILM SUBLINGUAL (08:19)
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
[2023-01-04] MEDS: Naloxone HCl Nasal TAKE HOME 4 MG SPRAY NOSTRILALT (09:19)
[2023-01-04] MEDS: Cyclobenzaprine HCl 10 MG TABLET PO (09:56)
== END 2023-01-04 10:27 | disposition home or self-care (01) | DRG 751 ==
LOC: HO.ED 11:44 → HO.PM5 17:53
PROVIDERS: Admitting Provider Psychiatry & Neurology Psychiatry; Emergency Provider Emergency Medicine; Visit Provider Psychiatry & Neurology Psychiatry
DX: F33.2 Major depressive disorder, recurrent severe without psychotic features (principal); R45.851 Suicidal ideations; F17.210 Nicotine dependence, cigarettes, uncomplicated; F11.20 Opioid dependence, uncomplicated; Z20.822 Contact with and (suspected) exposure to COVID-19; Z59.02 Unsheltered homelessness; Z71.6 Tobacco abuse counseling; Z88.0 Allergy status to penicillin; Z79.899 Other long term (current) drug therapy
CPT/HCPCS: 36415; 80053; 80061; 80143; 80179; 80307; 81003; 82077; 82607; 82746; 84439; 84443; 85025; 87635; 93005; 99285; S9485

== ENCOUNTER → 2023-01-24 13:36 | Outpatient (BNVA) | payer OTHER, SELFPAY | PROVIDERS: Visit Provider Nurse Practitioner Psychiatric/Mental Health | DX: F11.20 Opioid dependence, uncomplicated (principal); F14.20 Cocaine dependence, uncomplicated; F15.20 Other stimulant dependence, uncomplicated; F17.210 Nicotine dependence, cigarettes, uncomplicated; Z51.81 Encounter for therapeutic drug level monitoring; Z79.899 Other long term (current) drug therapy | CPT/HCPCS: 99202 ==

== ENCOUNTER 2023-02-20 23:29 | Emergency (ER) | payer OTHER, SELFPAY ==
[2023-02-20 23:56] VITALS: BP 153/113; PULSE 115; RESP 19; TEMP 36.8; O2SAT 92; BMI 26.8
--- NOTE | 2023-02-21 00:06 | PC.NURSE ---
pt mother contact is [phone]
[2023-02-21 00:21] LABS: Appearance Urine Clear; Color Urine Dark Yellow; Glucose Urine UA Negative (Negative); Leukocyte Esterase Urine Negative (Negative); Nitrite Urine Negative (Negative); Specific Gravity - Urine >= 1.030 (1.005-1.025); UMIC TRIGGER UA YES; Urine Blood Negative (Negative); Urine Ketones 15 mg/dL (Negative); Urine Protein 300 (3+) mg/dL (Neg-Trace)
[2023-02-21 00:26] LABS: Bacteria Urine None Seen (None Seen); Hyaline Casts Urine 0-2 /LPF (0-2); RBC Urine 0-2 /HPF (0-2); Squamous Epithelial Cell Urine 0-2 /HPF (0-2); WBC Urine 0-5 /HPF (0-5)
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
[2023-02-21 00:34] LABS: Amphetamine Screen Urine Not Detected (Not Detect); Barbiturates, Urine Not Detected (Not Detect); Benzodiazepines Screen Urine POSITIVE (Not Detect); Cannabinoid Screen Urine POSITIVE (Not Detect); Cocaine Screen Urine POSITIVE (Not Detect); Fentanyl, urine POSITIVE (Not Detect); Opiate Screen Urine POSITIVE (Not Detect); Phencyclidine Screen Urine Not Detected (Not Detect)
[2023-02-21 00:38] LABS: COVID-19 Test Negative (Negative); IDNOW Serial# 6674DD1D
--- NOTE | 2023-02-21 00:53 | MHC.EDTECH ---
t/w, PCT Brooke Rogers, Radhames Mojica, and Arnel Esquivel, all attempted to obtain bloodwork but pt is an extremely difficult stick. When FREDDY Seals asked if he could try again, pt stated that that's enough. and try again later.
== END 2023-02-21 02:20 | disposition home or self-care (01) ==
PROVIDERS: Emergency Provider Internal Medicine
DX: F33.2 Major depressive disorder, recurrent severe without psychotic features (principal); R45.851 Suicidal ideations; F19.20 Other psychoactive substance dependence, uncomplicated; F11.20 Opioid dependence, uncomplicated; F41.9 Anxiety disorder, unspecified; F17.210 Nicotine dependence, cigarettes, uncomplicated; Z79.899 Other long term (current) drug therapy
CPT/HCPCS: 80307; 81001; 87635; 99283; 99284

== ENCOUNTER 2023-10-08 08:32 | Emergency (ER) | payer OTHER, SELFPAY ==
--- NOTE | ~2023-10-08 | US_ITS ---
EXAMINATION: US VENOUS WITH DOPPLER UPPER EXTREMITY, LEFT CLINICAL INFORMATION: Pain and swelling COMPARISON: None available. TECHNIQUE: Ultrasound of the upper extremity is performed using compression sonography and color and pulse Doppler flow with assessment of augmentation of flow. There is also imaging and Doppler assessment of the jugular and subclavian veins. Spectral analysis with color-flow imaging is performed. FINDINGS: Respiratory variation, normal compression, and augmented flow are noted throughout the upper extremity including the axillary, brachial, cubital, and radial and ulnar veins. There is normal flow in the internal jugular and subclavian veins. There is no visible deep or superficial thrombophlebitis. There are several varicose vein seen along the left medial forearm arising of the left ulnar vein. Most of the vessels are patent except for the medial forearm vessels which are thrombosed suggestive of superficial thrombophlebitis.. If the patient's symptoms progress, a followup ultrasound in 5 -7 days might be of value to exclude proximal propagation from a nonvisualized distal arm vein. US/US venous duplex UE LT IMPRESSION: No DVT demonstrated in the left upper extremity. Superficial thrombophlebitis in the area of swelling and concern along the left medial forearm. There are numerous varicose vein seen in left forearm.
--- NOTE | ~2023-10-08 | XR_ITS ---
EXAMINATION: XR HIP, LEFT AND PELVIS CLINICAL INFORMATION: Left hip and groin pain. COMPARISON: None available. TECHNIQUE: Frontal radiograph of the pelvis and frontal and frog lateral radiographs of the left hip were acquired. of the left hip. FINDINGS: No fracture. Alignment is anatomic. Hip joint space is maintained. Soft tissues are unremarkable. The sacrum and sacroiliac joints are unremarkable. The right hip is unremarkable. XR/XR hip LT w PEL1V IMPRESSION: Unremarkable plain radiographs of the bony pelvis and left hip.
[2023-10-08 08:54] VITALS: BP 162/94; PULSE 99; RESP 17; TEMP 36.9; BMI 28.3
[2023-10-08 09:24] LABS: MANUAL DIFF FLAG NO
[2023-10-08 09:30] LABS: Basophils Percent Auto 0.4 % (0-2); Eosinophils Absolute Auto 0.1 X10*3/uL (0.0-0.4); Eosinophils Percent Auto 1.4 % (0-4); Hematocrit 48.1 % (42.0-52.0); Hemoglobin 15.7 g/dl (14.0-18.0); Imm Gran Abs Auto 0.02 X10*3/uL (0.00-0.03); Imm Gran Pct Auto 0.3 % (0.0-0.4); Lymphocytes Absolute Auto 1.6 X10*3/uL (1.2-4.9); Lymphocytes Percent Auto 20.4 % (20-40); Mean Corpuscular HGB Conc 32.6 g/dl (31.0-36.0); Mean Corpuscular Hemoglobin 25.7 pg (27.0-33.0); Mean Corpuscular Volume 78.6 fL (80.0-98.0); Mean Platelet Volume 11.2 fL (9.4-12.4); Monocytes Absolute Auto 0.5 X10*3/uL (0.1-1.2); Monocytes Percent Auto 6.4 % (2-11); Neutrophils Absolute Auto 5.5 x10*3/uL (2.0-8.3); Neutrophils Percent Auto 71.1 % (45-73); Platelet Count 224 X10*3/uL (160-400); Red Blood Count 6.12 X10*6/uL (4.60-5.80); Red Cell Distribution Width 13.5 % (11.0-16.0); White Blood Count 7.7 X10*3/uL (4.8-10.8)
[2023-10-08 09:37] LABS: Lactic Acid 1.3 mmol/L (0.5-2.0)
[2023-10-08 09:41] LABS: Anion Gap 12 (12-20); Blood Urea Nitrogen 17 mg/dL (9-16); Calcium 9.8 mg/dL (8.4-10.2); Carbon Dioxide 25 mmol/L (22-29); Chloride 104 mmol/L (96-108); Estimated Glomerular Filt Rate > 60; Glucose Random 110 mg/dL (60-115); Potassium 4.6 mmol/L (3.3-5.1); Sodium 136 mmol/L (135-145)
--- NOTE | 2023-10-08 09:57 | ED.GENADULT ---
HPI - General Adult General Chief complaint: General Medical Stated complaint: Hip pain Time Seen by Provider: 10/08/23 09:19 Source: patient Mode of arrival: ambulatory Limitations: no limitations History of Present Illness HPI narrative: 33 year old male with pmhx significant for opioid use disorder, IVDU, MDD presents to the ED today with a complaint of left hip pain on ambulation x 2-3 days. States his hip pain is localized to the anterior left hip. No radiation down the LLE. Admits to hearing a clicking sound. Pain is exacerbated upon bearing weight. 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 Has not taken any pain medication for this at home. Denies recent injury/trauma to the left hip. rAmbulating with steady gait. Additionally endorses a red line running up his left forearm, extending into the left bicep x3 days. Endorses IV heroin use 1.5 weeks ago. Injects into his left arm. States that this red line has been constant x3 days however somewhat improving. Line does not pass his left axilla. Denies fever, chills, joint pain/swelling, open wounds, chest pain, palpitations, SOB, N/V. States that he was treated at [facility] for blood infection secondary to IVDU 2 yrs ago. Related Data Home Medications Medication Instructions Recorded Confirmed buprenorphine 2 mg-naloxone 0.5 mg 5 mg sublingual QPM 02/20/23 02/20/23 sublingual film (Suboxone) buprenorphine 8 mg-naloxone 2 mg 10 mg sublingual QAM 02/20/23 02/20/23 sublingual film (Suboxone) clonidine HCl 0.1 mg tablet 0.1 mg PO BID PRN anxiety 02/20/23 02/20/23 folic acid 1 mg tablet 1 mg PO DAILY 02/20/23 02/20/23 gabapentin 400 mg capsule 800 mg PO TID 02/20/23 02/20/23 multivitamin 1 tab PO DAILY 02/20/23 02/20/23 nicotine (polacrilex) 4 mg buccal 2 mg PO Q2H PRN Nicotine Cravings 02/20/23 02/20/23 lozenge quetiapine 200 mg tablet 200 mg PO BEDTIME 02/20/23 02/20/23 trazodone 50 mg tablet 100 mg PO BEDTIME 02/20/23 02/20/23 Previous Rx's Medication Instructions Recorded cephalexin 500 mg capsule 500 mg PO BID 7 days #14 caps 10/08/23 doxycycline hyclate 100 mg capsule 100 mg PO BID 7 days #14 caps 10/08/23 lidocaine 5 % topical patch 1 patch topical DAILY #15 ea 10/08/23 (Lidoderm) naproxen 500 mg tablet 500 mg PO Q8-12H PRN pain (scale 10/08/23 score 4-6) #14 tabs Allergies Allergy/AdvReac Type Severity Reaction Status Date / Time amoxicillin [AMOXICILLIN] Allergy Unknown UNKNOWN Verified 01/24/23 13:44 penicillin V Allergy Unknown Hives Verified 01/24/23 13:44 Penicillins [PENICILLINS] Allergy Unknown SWELLING Verified 01/24/23 13:44 Review of Systems Review of Systems: Constitutional: No fever, chills, fatigue, night sweats, weight changes ENT/Mouth: No ear pain, hearing loss, nasal congestion, sinus pain, rhinorrhea, sore throat Eyes: No eye pain, swelling, redness, vision changes, discharge Cardio: No chest pain, palpitations, REILLY, orthopnea, peripheral edema Pulm: No SOB, cough, sputum, wheezing, dyspnea, hemoptysis GI: No nausea, vomiting, hematemesis, abdominal pain, diarrhea, constipation, hematochezia, melena : No irregular bleeding, dysuria, frequency, urgency, hesitancy, hematuria, flank pain, urinary flow changes, urinary incontinence or retention MSK: No back pain, neck pain, myalgias, +hip pain Skin: No lesions, rashes, +red streak to LUE Neuro: No weakness, numbness, paresthesias, LOC, dizziness, headache All other systems reviewed and are negative. [facility]LY [facility], [facility] Past Medical History Attestation statement: The following information was validated with the patient. Source: old records reviewed and nursing notes reviewed Medical History Polysubstance (including opioids) dependence, daily use No known health problems Social History Social History Household Members: Other Housing: Homeless Do you presently have visiting nurse or other home services: No Alcohol intake: current Alcohol intake frequency: 0-2 drinks per day Alcohol type: hard liquor Patient Tobacco Use Status: Current everyday Tobacco user Tobacco use type: Cigarette Cigarette Packs Per Day: 1 Cigarettes Per Day: 20.0 Years Smoked: 10 Smoked in Last 30 Days: No e-Cigarette/Vaping Use: Currently Using Second Hand Smoke Exposure: No Use of substances other than those prescribed or required for medical reasons: No Substance Use Type: Amphetamines, Crack/Cocaine, Marijuana and Opiates Advance Directives: No service: No Sexual orientation: Straight/Heterosexual Physical Exam ED Vital Signs: Vital Signs - 24 hr 10/08/23 08:54 10/08/23 12:04 Temperature 98.5 F Pulse Rate 99 74 Respiratory Rate 17 16 Blood Pressure 162/94 H Pulse Oximetry 97 Oxygen Delivery Method Room Air Room Air BMI result Body Mass Index 28.3 Vital signs stable, afebrile. Const General: cooperative, comfortable, no acute distress, alert and awake Orientation/consciousness: patient oriented x3 Limitations: no limitations HENMT Head: Yes normal to inspection Ears: hearing grossly normal bilaterally Eyes General: appearance normal, both eyes and all related structures Conjunctivae: conjunctivae normal Sclerae: sclerae normal Pupils: Equal, round and reactive pupils present Neck Neck: Yes normal visual inspection, Yes full ROM, Yes no lymphadenopathy and Yes no meningeal signs Chest Chest palpation & inspection: normal inspection of the chest Resp Effort & Inspection: normal respiratory effort and able to speak in complete sentences Auscultation: clear to auscultation bilaterally Cardio Rate: regular rate Rhythm: regular rhythm Peripheral pulses: brachial pulses present, radial pulses present and ulnar radial pulses present GI Inspection: Yes normal to inspection Palpation (GI): Soft to palpation and nontender Auscultation: normal bowel sounds Back/Spine/Pelvis Other: No midline spinous tenderness. No paraspinal muscle tenderness. No step off deformity. + L hip without palpable deformity, fluctuance, or warmth. No overlying skin changes. Full ROM to left hip intact. Skin Other: + Refer to photos below + streaking extending from the dorsal aspect of the left forearm, along the left bicep, and into the base of the left axilla. Non ttp. Slight induration noted to injection site along dorsal aspect of left forearm. No palpable warmth or fluctuance. Multiple injection sites noted to L forearm. No open wounds. + LUE: Neuro Other: Strength 5/5 intact throughout.?No saddle anesthesia.?Sensation intact to light touch.?Neurovascular intact distally.? General: patient oriented x3, gait normal, moves all extremities and no meningeal signs Cranial nerves: Yes Equal, round and reactive pupils present Gait exam (Neuro): Normal gait present Extrem General: Yes normal to inspection and Yes full ROM Course Course Course Narrative: CBC without leukocytosis. No anemia. Lactic wnl. sed rate wnl. crp slightly elevated secondary to inflammatory process. xr left hip unremarkable. no concern for fracture or dislocation. venous duplex LUE showing thrombophlebitis. No DVT. > patient informed of lab and imaging results. as he is well appearing, afebrile, normotensive and has not failed outpatient therapy, I will send him home with edel and shivani to treat for lymphangitis. > endorses pain improvement to left hip w/ lido patch and toradol. will send naproxen + lido patches to patient's pharmacy. will also provide ortho referral. > Case discussed with my attending physician, Dr. Cabello who agrees with plan. Patient has remained stable throughout ED visit today. Discussed strict return precautions. All questions answered at this time. Patient is agreeable with disposition and stable for discharge. Medications Administered Discontinued Medications Generic Name Dose Route Start Last Admin Trade Name Freq PRN Reason Stop Dose Admin Ketorolac Tromethamine 30 mg 10/08/23 10:55 10/08/23 11:30 Ketorolac Tromethamine 30 Mg/Ml Vial IM 10/08/23 10:56 30 mg ONCE ONE Administration Lidocaine 1 patch 10/08/23 10:55 10/08/23 11:30 Lidocaine 4 % Patch Adh..Patch TRANSDERMA 10/08/23 10:56 1 patch ONCE ONE Administration Protocol Medical Decision Making Medical Decision Making [facility] Narrative: 33 year old male with pmhx significant for opioid use disorder, IV drug use, MDD presents to the ED today with a complaint of left hip pain with ambulation times 2-3 days. VSS, afebrile, normotensive. He is nontoxic appearing and in NAD. On exam there is streaking extending from the dorsal aspect of the left forearm, along the left bicep, and into the base of the left axilla. Non ttp. Slight induration noted to injection site along dorsal aspect of left forearm. No palpable warmth or fluctuance. Multiple injection sites noted to L forearm. No open wounds. L hip without palpable deformity. No overlying skin changes. Full ROM to left hip intact. strength 5/5 throughout. nv intact distally. Clinical concern for MSK sprain/strain, hip fracture, dislocation. Clinical concern for IV drug use, polysubstance use. Clinical concern for cellulitis, lymphangitis. No concern for bacteremia or sepsis at this time. Basic labs, lactic and blood cultures ordered in triage. Will add on x-ray and ultrasound of left upper extremity and x-ray of left hip/pelvis. Plan for antibiotics, imaging review and re-evaluation. Differential Diagnosis Differential Diagnoses: The differential diagnosis associated with the presentation includes As above. Admission/Observation Consideration of admission/observation: Escalation of care including admission/observation considered In this patient with a history of IV drug use and suspected lymphangitis, admission was considered. Lab Data MDM Lab Attestation statement: I reviewed the patient's lab results. As above. 10/08/23 09:19 10/08/23 09:19 Labs: Lab Results 10/08/23 Range/Units 09:19 WBC 7.7 (4.8-10.8) X10*3/uL RBC 6.12 H D (4.60-5.80) X10*6/uL Hgb 15.7 (14.0-18.0) g/dl Hct 48.1 D (42.0-52.0) % MCV 78.6 L (80.0-98.0) fL MCH 25.7 L (27.0-33.0) pg MCHC 32.6 (31.0-36.0) g/dl RDW 13.5 (11.0-16.0) % Plt Count 224 (160-400) X10*3/uL MPV 11.2 (9.4-12.4) fL Immature Gran % (Auto) 0.3 (0.0-0.4) % Neut % (Auto) 71.1 (45-73) % Lymph % (Auto) 20.4 (20-40) % Kendall % (Auto) 6.4 (2-11) % Eos % (Auto) 1.4 (0-4) % Baso % (Auto) 0.4 (0-2) % Lymph # (Auto) 1.6 (1.2-4.9) X10*3/uL Kendall # (Auto) 0.5 (0.1-1.2) X10*3/uL Eos # (Auto) 0.1 (0.0-0.4) X10*3/uL Baso # (Auto) 0.0 (0.0-0.2) X10*3/uL Abs Immat Gran (auto) 0.02 (0.00-0.03) X10*3/uL Absolute Neuts (auto) 5.5 (2.0-8.3) x10*3/uL Absolute Nucleated RBC 0.000 (0.0-0.012) X10*3/uL Nucleated RBC % (auto) 0.0 (0.0-0.2) /100WBC ESR 7 (0-15) MM/HR Sodium 136 (135-145) mmol/L Potassium 4.6 D (3.3-5.1) mmol/L Chloride 104 (96-108) mmol/L Carbon Dioxide 25 (22-29) mmol/L Anion Gap 12 (12-20) BUN 17 H (9-16) mg/dL Creatinine 1.02 (0.5-1.4) mg/dL Estim Creat Clear Calc 118.0 Estimated GFR > 60 Random Glucose 110 (60-115) mg/dL Lactic Acid 1.3 (0.5-2.0) mmol/L Calcium 9.8 D (8.4-10.2) mg/dL C-Reactive Protein 0.63 H (< or = 0.50) mg/dL Independent Interpretation I performed an independent interpretation of an: Plain X-Ray and Ultrasound Interpretation: XR left hip without fracture or dislocation, agree with radiologist's interpretation. Venous duplex LUE without DVT, agree with radiologist's interpretation. Radiology Impression Discussion of test interpretation with radiology: I have reviewed the radiologist's reading. Radiologist Impression: US venous duplex UE LT IMPRESSION: No DVT demonstrated in the left upper extremity. Superficial thrombophlebitis in the area of swelling and concern along the left medial forearm. There are numerous varicose vein seen in left forearm. Independent Historian Clinical information obtained from an independent historian. History obtained from or confirmed by: Friend External Record Review External record reviewed: Inpatient record, Office record, Outpatient record, Prior outpatient labs, Prior outpatient radiology, Primary care record and Outside ED record Prescription Management I considered prescription management with: Pain Medication and Antibiotic Chronic Conditions Patient?s care impacted by: Other (IVDU, polysubstance use disorder) Critical Care Time Critical Care Time Critical Care Time: No Discharge Plan Discharge Clinical Impression: Lymphangitis, Left hip pain Patient Disposition: Home, Self-Care Instructions: Lymphangitis (ED) Additional Instructions: Your labs are unremarkable. The x-ray of your left hip did not show fracture or dislocation. Naproxen is an anti-inflammatory that has been sent to your pharmacy. You may take this as needed for pain. Do not take this with other NSAIDs such as ibuprofen. Lidoderm patches have also been sent to your pharmacy. Apply these 2 year hip as needed for pain/discomfort. You have been given a referral to an orthopedic office. CALL THEM TO MAKE AN APPOINTMENT. THEY WILL NOT CALL YOU. The ultrasound of your left arm did not show any clot. It shows inflammation within the veins. You may apply warm compresses to the area. You likely have an infection of your lymphatic system called lymphangitis. Keflex and doxycycline are antibiotics that have been sent to your pharmacy. Take these twice daily for the next 7 days for infection. Do not stop taking these early or miss any doses as this may cause infection to worsen or return. If symptoms persist or worsen, develops fever, chest pain or palpitations, return to the emergency department. The case of an emergency call 911. Prescriptions: New lidocaine [Lidoderm] 5 % adhesive patch,medicated 1 patch topical DAILY Qty: 15 0RF Rx Instructions: leave on most painful area for up to 12 hrs naproxen 500 mg tablet 500 mg PO Q8-12H PRN (Reason: pain (scale score 4-6)) Qty: 14 0RF cephalexin 500 mg capsule 500 mg PO BID 7 Days Qty: 14 0RF doxycycline hyclate 100 mg capsule 100 mg PO BID 7 Days Qty: 14 0RF No Action multivitamin Tablet 1 tab PO DAILY clonidine HCl 0.1 mg tablet 0.1 mg PO BID PRN (Reason: anxiety) trazodone 50 mg tablet 100 mg PO BEDTIME gabapentin 400 mg capsule 800 mg PO TID quetiapine 200 mg tablet 200 mg PO BEDTIME folic acid 1 mg tablet 1 mg PO DAILY nicotine (polacrilex) 4 mg lozenge 2 mg PO Q2H PRN (Reason: Nicotine Cravings) buprenorphine-naloxone [Suboxone] 2-0.5 mg film 5 mg sublingual QPM buprenorphine-naloxone [Suboxone] 8-2 mg film 10 mg sublingual QAM Referrals: [facility] [Provider Group] Interventions: ED Discharge Assessment Last Done: 10/08/23 13:01 Discharge Date/Time: 10/08/23 13:02
[2023-10-08] MEDS: Lidocaine 4 % Patch ADH..PATCH 1 PATCH TRANSDERMA (11:30)
[2023-10-08] MEDS: Ketorolac Tromethamine 30 MG/ML VIAL IM (11:30)
[2023-10-08 12:04] VITALS: PULSE 74; RESP 16; O2SAT 97
--- NOTE | 2023-10-08 12:05 | PC.NURSE ---
Patient verbalizes left hip pain that travels in location but currently feels like it is in the joint space. Patient reports use of lidocaine patches and OTC Tylenol and Ibuprofren with no relief. Lidocaine patch and Toradol administered, no change in pain, still 5/10. Patient ambulating around room well with steady gait
[2023-10-08 12:39] LABS: C Reactive Protein 0.63 mg/dL (< or = 0.50)
--- NOTE | 2023-10-08 12:45 | PC.NURSE ---
Patient verbalizes to this RN that he would like to leave, patient aware that ultrasound results are not back at this time. Patient requesting to be called with results. This RN educated patient that that is not typically done, provider aware at this time
[2023-10-08 13:14] LABS: Erythrocyte Sedimentation Rate 7 MM/HR (0-15)
== END 2023-10-08 13:02 | disposition home or self-care (01) ==
PROVIDERS: Physician Assistant Medical; Emergency Provider Emergency Medicine Emergency Medical Services
DX: I89.1 Lymphangitis (principal); M25.552 Pain in left hip; R60.0 Localized edema; Z79.899 Other long term (current) drug therapy
CPT/HCPCS: 36415; 73502; 80048; 83605; 85025; 85652; 86140; 87040; 93971; 96372; 99284; J1885

== ENCOUNTER 2023-10-14 10:48 | Emergency (ER) | payer OTHER, SELFPAY ==
[2023-10-14 11:20] VITALS: BP 143/80; PULSE 66; RESP 20; TEMP 36.1; O2SAT 98; BMI 28.1
--- NOTE | 2023-10-14 11:23 | ED.GENADULT ---
HPI - General Adult General Chief complaint: Extremity Problem Stated complaint: l hip pain Time Seen by Provider: 10/14/23 11:31 Source: patient and RN notes reviewed Mode of arrival: ambulatory Limitations: no limitations History of Present Illness HPI narrative: This is a 33 year old male presenting to the emergency department for evaluation of ongoing left hip pain x 1 week. 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 He is unsure if this exacerbated his pain while playing hockey. He was seen in the emergency department on October 08 for left hip pain. He states that he has been taking prescribed naproxen, lidoderm patches and was given a referral to an orthopedic office but is concerned as his pain is not improving and is hoping to get an MRI or additional imaging. He has not called the orthopedic office since his visit in the ER. He denies any new trauma or injury. He was also seen for lymphangitis, which has since resolved. No other complaints or concerns at this time. MD complaint: L hip pain Onset (ago): day(s) Radiation: non-radiation Severity: moderate Quality: aching Pain Consistency: constant Relieving factors: none Exacerbating factors: none Associated symptoms: denies other symptoms Treatments prior to arrival: none Related Data Previous Rx's Medication Instructions Recorded ibuprofen 800 mg tablet 800 mg PO Q8H PRN pain 30 days #90 10/25/23 tabs Allergies Allergy/AdvReac Type Severity Reaction Status Date / Time amoxicillin [AMOXICILLIN] Allergy Unknown UNKNOWN Verified 10/25/23 14:07 penicillin V Allergy Unknown Hives Verified 10/25/23 14:07 Penicillins [PENICILLINS] Allergy Unknown SWELLING Verified 10/25/23 14:07 Review of Systems Review of Systems: Yes all other systems are reviewed and are negative [facility] Past Medical History Medical History Polysubstance (including opioids) dependence, daily use No known health problems Social History Social History Household Members: Other Housing: Homeless Do you presently have visiting nurse or other home services: No Alcohol intake: current Alcohol intake frequency: 0-2 drinks per day Alcohol type: hard liquor Patient Tobacco Use Status: Current everyday Tobacco user Tobacco use type: Cigarette Cigarette Packs Per Day: 1 Cigarettes Per Day: 20.0 Years Smoked: 10 e-Cigarette/Vaping Use: Currently Using Second Hand Smoke Exposure: No Substance Use Type: Amphetamines, Crack/Cocaine, Marijuana and Opiates service: No Sexual orientation: Straight/Heterosexual Physical Exam ED Vital Signs: Vital Signs - 24 hr 10/14/23 11:20 Temperature 97 F Pulse Rate 66 Respiratory Rate 20 Blood Pressure 143/80 H Pulse Oximetry 98 Oxygen Delivery Method Room Air BMI result Body Mass Index 28.1 Const Other: General: Awake, alert, and oriented X3. No acute distress. HEENT: Normal inspection CVS: Normal heart rate and rhythm. Pulses normal. Respiratory: No respiratory distress Skin: Warm, dry, no rashes noted to exposed skin. Normal skin color. Normal skin turgor. Extremities: L hip without palpable deformity, fluctuance, or warmth. No overlying skin changes. Pain with range of motion of the hip, but full ROM Neuro: Oriented X 3. No motor deficit. No sensory deficit. Medical Decision Making Medical Decision Making MDM Narrative: This is a 33 year old male presenting to the emergency department with ongoing left hip pain. He was seen in the emergency department where he had an X-ray of his left hip which was unremarkable. He was given naproxen, lidoderm patches, and advised to follow up with orthopedics. He is here today as his symptoms have not improved. He has not followed up with the orthopedic team. Given patient has not had re injury, and hip is non tender, with only pain with range of motion, will defer imaging at this time period I educated patient that we are unable to perform an MRI in the department. Patient switched to ibuprofen, advised to discontinue naproxen. Educated on gentle stretching and massage. Given return precautions. Patient understands that agrees with plan. Patient stable for discharge. Differential Diagnosis Differential Diagnoses: The differential diagnosis associated with the presentation includes fracture, sprain, strain, contusion Radiology Impression Discussion of test interpretation with radiology: I have reviewed the radiologist's reading. Radiologist Impression: >> xray from 10/08 CLINICAL INFORMATION: Left hip and groin pain. COMPARISON: None available. TECHNIQUE: Frontal radiograph of the pelvis and frontal and frog lateral radiographs of the left hip were acquired. of the left hip. FINDINGS: No fracture. Alignment is anatomic. Hip joint space is maintained. Soft tissues are unremarkable. The sacrum and sacroiliac joints are unremarkable. The right hip is unremarkable. XR/XR hip LT w PEL1V IMPRESSION: Unremarkable plain radiographs of the bony pelvis and left hip. Discharge Plan Discharge Clinical Impression: Left hip pain Patient Disposition: Home, Self-Care Instructions: Hip Pain (ED) Additional Instructions: you were seen in the emergency department due to ongoing hip pain. Your x-ray that was performed on October 08 was unremarkable. You need to follow-up with Orthopedics, call to make an appointment. Stop taking naproxen, take ibuprofen as directed as needed. If any new or worsening symptoms occur including but not limited to worsening pain, worsening numbness and tingling in your foot, please return for re-evaluation. Prescriptions: No Action ibuprofen 800 mg tablet 800 mg PO Q8H PRN (Reason: pain) 30 Days Qty: 90 3RF Referrals: [facility] [Provider Group] Interventions: ED Discharge Assessment Last Done: 10/14/23 11:36 Discharge Date/Time: 10/14/23 11:36
== END 2023-10-14 11:36 | disposition home or self-care (01) ==
PROVIDERS: Emergency Provider Emergency Medicine
DX: M25.552 Pain in left hip (principal)
CPT/HCPCS: 99282; 99283

== ENCOUNTER 2023-10-25 14:02 | Outpatient (AMB) | payer OTHER, SELFPAY ==
--- NOTE | 2023-10-25 14:04 | MHC.OFFVIS ---
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 Patient reports that he has had on and off left hip pain for the last few years now. He has increased pain over the last 2 weeks have increased pain after playing hockey, he did not stretch while skating. frequently has hips in external rogation while skating. He reports history of steroids. 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 He states he has intermittent pain in his hip for a few years but the pain has been worsened after playing hockey, 2 weeks ago. He currently states he has a sharp, stabbing pain in his hip which is aggravated with standing, laying on sides, lifting and movement. He also c/o tingling in his left toe. 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 He states he had a significant injury to his left forearm which resulted in multiple surgeries. He became dependent on Oxycodone and then went on Suboxone He recently moved to [facility] from the [facility] and is no longer on suboxone. He states he was also on Gabapentin for his neuropathy, but is no longer taking. He staes he has had a difficult time trying to set up PCP since moving to the area. [facility] Medical History Polysubstance (including opioids) dependence, daily use No known health problems Social History Household Members: Other Housing: Homeless Do you presently have visiting nurse or other home services: No Alcohol intake: current Alcohol intake frequency: 0-2 drinks per day Alcohol type: hard liquor Patient Tobacco Use Status: Current everyday Tobacco user Tobacco use type: Cigarette Cigarette Packs Per Day: 1 Cigarettes Per Day: 20.0 Years Smoked: 10 e-Cigarette/Vaping Use: Currently Using Second Hand Smoke Exposure: No Substance Use Type: Amphetamines, Crack/Cocaine, Marijuana and Opiates service: No Sexual orientation: Straight/Heterosexual Review of Systems Const All systems reviewed & are unremarkable except as noted in HPI and below Physical Exam Const General: cooperative, healthy appearing, comfortable, no acute distress, well developed and alert Orientation/consciousness: patient oriented x3 HEENT Head: Yes normal to inspection, Yes normocephalic and Yes atraumatic Eyes General: appearance normal, both eyes and all related structures Resp Effort & Inspection: normal respiratory effort and able to speak in complete sentences Cardio Rate: regular rate Peripheral pulses: Peripheral pulses 2+ throughout GI Palpation (GI): Soft to palpation Skin Lesions: no lesions Rashes: no rashes Neuro General: patient oriented x3 Extrem Other: Left hip: Normal to inspection. No pain with ROM of the hip. Pain along the greater trochanter. No pain with hip flexion or abduction. No tenderness along the SI joint, Positive SLR. NVI. Results Reviewed Results Reviewed: Xrays were obtained in the office today and personally reviewed by me of the right hip show well preserved joint space Assessment & Plan Assessment & Plan (1) Tendonitis of left hip flexor: Code(s): M76.892 - Other specified enthesopathies of left lower limb, excluding foot Plan We discussed options which include PT, NSAIDs and injections. The patient will defer on the injection today and proceed with PT and NSAIDs. If symptoms persist, the patient will contact me for an injection, otherwise, PRN. I did place a referral to pain mgmnt for evaluation of his neuropathy. If this is not appropriate, he can make an appt with Dr Porter. Orders: Orders PT Evaluation and Treatment 10/25/23 M76.892 - Other specified enthesopathies of left lower limb, excluding foot Referrals Pain Management Referral G56.92 - Unspecified mononeuropathy of left upper limb Medications: New ibuprofen 800 mg PO Q8H 30 days PRN 90 tabs 3RF pain S52.209D - Unspecified fracture of shaft of unspecified ulna, subsequent encounter for closed fracture with routine healing Patient Instructions: Scribed for Brad-Melva Eduardo PA-C, by Luis Guo, biomedical engineer, on 10/25/2023 at 2:00 PM CELINA. Ada Coronel PA-C, have personally reviewed and agree with the information entered by the scribe. Coding Level of Care Code New Pt Level 3 (85023) Diagnoses Tendonitis of left hip flexor M76.892
== END 2023-10-25 14:27 | disposition home or self-care (01) ==
PROVIDERS: Visit Provider Physician Assistant
DX: M76.892 Other specified enthesopathies of left lower limb, excluding foot (principal)
CPT/HCPCS: 99203

== ENCOUNTER → 2023-10-25 14:02 | Outpatient (BNVA) | payer OTHER, SELFPAY | PROVIDERS: Visit Provider Physician Assistant | DX: M76.892 Other specified enthesopathies of left lower limb, excluding foot (principal) | CPT/HCPCS: 99202 ==

== ENCOUNTER 2023-11-01 09:01 | Outpatient (AMB) | payer OTHER, SELFPAY ==
--- NOTE | 2023-11-01 09:05 | MHC.OFFVIS ---
Intake Vital Signs 11/01/23 09:06 Height 5 ft 10 in Weight 197 lb BMI 28.3 BP 162/99 H Blood Pressure Location Lt brachial Position Sitting Pulse 71 Pulse Source Pulse Oximeter Pulse Oximetry (%) 99 Oxygen Delivery Method Room Air Intake Visit Reasons: LEFT HAND NEUROPATHY - Confirmed Allergies amoxicillin [AMOXICILLIN] Allergy (Unknown, Verified 11/01/23 09:08) UNKNOWN penicillin V Allergy (Unknown, Verified 11/01/23 09:08) Hives Penicillins [PENICILLINS] Allergy (Unknown, Verified 11/01/23 09:08) SWELLING HPI HPI Comments History of Present Illness Details Juve is a very pleasant 33-year-old male who presents the office today for evaluation management of his chronic bilateral peripheral neuropathy. Patient was referred here from Orthopedics where he is under treatment for left hip pain, he thought he was being referred here for his left hip pain but according to their notes it was for the neuropathy. Patient was advised of this after review of recent orthopedic note. 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 Patient also complains of neuropathy to 3rd 4th 5th digits of his left hand. He reports this neuropathy started approximately 15 years ago after having left arm surgery with hardware for traumatic fracture. He has never been evaluated by Podiatry for his foot pain, he recently moved here from the [facility] where he was being prescribed gabapentin 800 mg t.i.d.. He does not currently have a primary care provider and is looking to establish care with somebody who will prescribe this medication for him. Patient endorses current polysubstance abuse including current IVDU. He is enrolled in MAT program and working to transition on to Suboxone with the hopes of starting Sublocade. Patient reports pain today 5/10, constant. In terms of muscle damage condition is described as aching, numbing, shocking, stabbing, sharp. Pain is negatively impacting patient's general activity, sleep, walking and ability to play hockey. [facility] Medical History Polysubstance (including opioids) dependence, daily use No known health problems Social History Household Members: Other Housing: Homeless Do you presently have visiting nurse or other home services: No Alcohol intake: current Alcohol intake frequency: 0-2 drinks per day Alcohol type: hard liquor Patient Tobacco Use Status: Current everyday Tobacco user Tobacco use type: Cigarette Cigarette Packs Per Day: 1 Cigarettes Per Day: 20.0 Years Smoked: 10 e-Cigarette/Vaping Use: Currently Using Second Hand Smoke Exposure: No Substance Use Type: Amphetamines, Crack/Cocaine, Marijuana and Opiates service: No Sexual orientation: Straight/Heterosexual Review of Systems Const All systems reviewed & are unremarkable except as noted in HPI and below Physical Exam Vital Signs: Last Vital Signs Pulse 71 11/01/23 09:06 BP 162/99 H 11/01/23 09:06 Pulse Ox 99 11/01/23 09:06 Oxygen Delivery Method Room Air 11/01/23 09:06 BMI result Body Mass Index 28.3 General: awake, alert, oriented. Answers questions appropriately. Fully engaged in examination. Skin: warm, dry, intact HEENT: Normocephalic. Hearing intact. Cardiac: External chest normal in appearance. Respiratory: No cough, audible wheezing or stridor. Abdomen: without gross distension. MS: No obvious swelling or deformities. Able to transition from sit to stand unassisted. Ambulates with bilaterally normal heel strike and toe off Neurological: Oriented to person, place, time and situation. Thought process intact. No gait abnormalities appreciated. Psychiatric: Appropriate mood and affect. Good judgment and insight. Assessment & Plan Assessment & Plan (1) Neuropathy of finger of left hand: Code(s): G56.92 - Unspecified mononeuropathy of left upper limb (2) Peripheral neuropathy: Code(s): G62.9 - Polyneuropathy, unspecified Plan Juve is a very pleasant 33 year old male who presented to the office today for evaluation and management of his bilateral peripheral neuropathy and left 3rd, 4th, 5th digits. Patient initially was under the impression he was referred here for his left hip pain, advised patient his recent ortho visit was for E/M of that target area. C/W plan per ortho-NSAIDs and PT, call their office to schedule injection if he would like to proceed with that route. EMG ordered for polyneuropathy Patient seeking prescriber for previously taken Gabapentin 800mg po TID, advised patient this would not be appropriate or safe at this time given his current polysubstance abuse including IVDU. Too high risk to prescribe [employer] depressants with illicit drug use. Patient verbalized understanding. He was strongly encouraged to work closely with his current MAT program, follow-up with them as soon as possible. All questions and concerns were addressed during the visit. Patient agrees with the plan. Follow up after EMG, sooner if needed. Orders: Orders NE electromyogram (EMG) Today G56.92 - Unspecified mononeuropathy of left upper limb, G62.9 - Polyneuropathy, unspecified Coding Level of Care Code New Pt Level 4 (01917) Diagnoses Neuropathy of finger of left hand G56.92 Peripheral neuropathy G62.9
[2023-11-01 09:06] VITALS: BP 162/99; PULSE 71; O2SAT 99; BMI 28.3
== END 2023-11-01 09:33 | disposition home or self-care (01) ==
PROVIDERS: Referring Provider Physician Assistant; Visit Provider Registered Nurse Emergency
DX: G56.92 Unspecified mononeuropathy of left upper limb (principal); G62.9 Polyneuropathy, unspecified
CPT/HCPCS: 99203

== ENCOUNTER → 2023-11-01 09:01 | Outpatient (BNVA) | payer OTHER, SELFPAY | PROVIDERS: Referring Provider Physician Assistant; Visit Provider Registered Nurse Emergency | DX: G56.92 Unspecified mononeuropathy of left upper limb (principal); G62.9 Polyneuropathy, unspecified | CPT/HCPCS: 99202 ==

== ENCOUNTER 2024-05-06 05:48 | Emergency (ER) | payer OTHER, SELFPAY ==
[2024-05-06 05:52] VITALS: BP 130/86; PULSE 74; RESP 16; TEMP 36; O2SAT 98; BMI 26.5
[2024-05-06 06:29] LABS: Basophils Absolute Auto 0.1 X10*3/uL (0.0-0.2); Basophils Percent Auto 0.7 % (0-2); Eosinophils Absolute Auto 0.1 X10*3/uL (0.0-0.4); Eosinophils Percent Auto 0.7 % (0-4); Hematocrit 40.9 % (42.0-52.0); Hemoglobin 14.5 g/dl (14.0-18.0); Imm Gran Abs Auto 0.02 X10*3/uL (0.00-0.03); Imm Gran Pct Auto 0.2 % (0.0-0.4); Lymphocytes Absolute Auto 1.8 X10*3/uL (1.2-4.9); Lymphocytes Percent Auto 21.8 % (20-40); MANUAL DIFF FLAG NO; Mean Corpuscular HGB Conc 35.5 g/dl (31.0-36.0); Mean Corpuscular Hemoglobin 28.8 pg (27.0-33.0); Mean Corpuscular Volume 81.2 fL (80.0-98.0); Mean Platelet Volume 10.8 fL (9.4-12.4); Monocytes Absolute Auto 0.4 X10*3/uL (0.1-1.2); Monocytes Percent Auto 5.1 % (2-11); Neutrophils Absolute Auto 5.7 x10*3/uL (2.0-8.3); Neutrophils Percent Auto 71.5 % (45-73); Platelet Count 160 X10*3/uL (160-400); Red Blood Count 5.04 X10*6/uL (4.60-5.80)
[2024-05-06 06:40] LABS: Ethanol < 10 mg/dL
[2024-05-06 06:43] LABS: Alanine Aminotransferase 23 U/L (0-40); Albumin Level 4.9 g/dL (3.5-5.0); Alkaline Phosphatase 71 U/L (39-117); Anion Gap 16 (12-20); Aspartate Amino Transferase 38 U/L (5-37); Bilirubin Total 0.6 mg/dL (0.0-1.0); Blood Urea Nitrogen 15 mg/dL (9-16); Calcium 10.2 mg/dL (8.4-10.2); Carbon Dioxide 25 mmol/L (22-29); Chloride 103 mmol/L (96-108); Creatinine Clr Calc Pharmacy 109.5; Estimated Glomerular Filt Rate > 60; Glucose Random 100 mg/dL (60-115); Potassium 4.1 mmol/L (3.3-5.1); Sodium 140 mmol/L (135-145)
--- NOTE | 2024-05-06 07:09 | ED.PSYCH ---
HPI - Psych General Chief Complaint: Psychiatric Symptoms Stated Complaint: SI Time Seen by Provider: 05/06/24 07:07 Source: patient and old records reviewed Mode of arrival: ambulatory Limitations: no limitations History of Present Illness ED Provider: CAROLE HPI Narrative: 34 yo male with PMH of polysubstance abuse and opiate disorder here with c/o being kicked out of his dwelling. He has chronic L forearm pain no new injuries. He reports SI. MD complaint: suicidal ideation and feels depressed Onset (ago): day(s) Duration: getting worse History of same: Yes Relieving factors: none Exacerbating factors: other Context: significant life stressor Associated psychiatric symptoms: depression and suicidal ideation Associated symptoms: denies other symptoms Treatments prior to arrival: none If self harm: admits thoughts of self harm Related Data Home Medications ?Medication ?Instructions ?Recorded ?Confirmed methadone 10 mg/mL oral concentrate 125 mg PO DAILY 05/06/24 05/06/24 Allergies Allergy/AdvReac Type Severity Reaction Status Date / Time amoxicillin [AMOXICILLIN] Allergy Unknown UNKNOWN Verified 05/06/24 05:54 penicillin V Allergy Unknown Hives Verified 05/06/24 05:54 Penicillins [PENICILLINS] Allergy Unknown SWELLING Verified 05/06/24 05:54 Review of Systems Review of Systems: Constitutional : No Fever, No Chills ENT/Mouth : No Ear Pain, No Nasal Congestion, No sore throat Eyes: No Eye Pain, No Swelling, No Redness Cardiovascular : No Chest Pain, No SOB Respiratory : No Cough, No Sputum, No Dyspnea Gastrointestinal : No Nausea, No Vomiting, No Diarrhea, No Hematochezia, No Melena Genitourinary : No Dysuria, No Urinary Frequency, No Hematuria Musculoskeletal : No Myalgias Skin : No Skin Lesions, No rash Neuro : No Weakness, No Numbness, No Paresthesias, No Dizziness, No Headache Psych : positive Anxiety, positive Depression, positive SI no HI All other systems reviewed and are negative [facility] Past Medical History Attestation statement: The following information was validated with the patient. Source: old records reviewed Medical History Polysubstance (including opioids) dependence, daily use No known health problems Social History Social History Household Members: Other Housing: Homeless Do you presently have visiting nurse or other home services: No Alcohol intake: current Alcohol intake frequency: a few times a month Alcohol type: hard liquor Patient Tobacco Use Status: Current everyday Tobacco user Tobacco use type: Cigarette Cigarette Packs Per Day: 1 Cigarettes Per Day: 20.0 Years Smoked: 10 Smoked in Last 30 Days: No e-Cigarette/Vaping Use: Currently Using Second Hand Smoke Exposure: No Use of substances other than those prescribed or required for medical reasons: No Substance Use Type: Amphetamines, Crack/Cocaine, Marijuana and Opiates Advance Directives: No Advance Directives Information Provided: Yes Do you have a plan to hurt others: No Plan service: No Sexual orientation: Straight/Heterosexual Physical Exam Vital Signs: Vital Signs: Last Vital Signs Temp 96.8 F 05/06/24 05:52 Pulse 74 05/06/24 05:52 Resp 16 05/06/24 05:52 BP 130/86 05/06/24 05:52 Pulse Ox 98 05/06/24 05:52 O2 Del Method Room Air 05/06/24 05:52 BMI result Body Mass Index 26.5 Appearance: Alert. Oriented X3. No acute distress. Sleeping soundly on arrival to room Eyes: Pupils equal, round and reactive to light. ENT: Pharynx normal. Neck: Normal inspection. Neck supple. CVS: Normal heart rate and rhythm. Pulses normal. Respiratory: No respiratory distress. Breath sounds normal. Abdomen: Soft and nontender. Skin: Skin warm and dry. Normal skin color. Normal skin turgor. Extremities: No lower extremity edema. No calf ttp Neuro: Oriented X 3. No motor deficit. No sensory deficit. CN2-12 intact Medical Decision Making Medical Decision Making [facility] Narrative: 34 yo male with PMH of polysubstance abuse and opiate disorder here with c/o SI in setting of social issues at this time will obtain labs and CARE team consult. Differential Diagnosis Differential Diagnoses: The differential diagnosis associated with the presentation includes SI, drug abuse, depression, poor social situtation Admission/Observation Consideration of admission/observation: Escalation of care including admission/observation considered physician observation started at 740am pending CARE team Consult Healthcare Provider Management of the patient was discussed with: Behavioral Health Provider Lab Data [facility] Lab Attestation statement: I reviewed the patient's lab results. 05/06/24 06:25 05/06/24 06:25 Labs: Lab Results 05/06/24 Range/Units 06:25 WBC 8.0 (4.8-10.8) X10*3/uL RBC 5.04 (4.60-5.80) X10*6/uL Hgb 14.5 (14.0-18.0) g/dl Hct 40.9 L (42.0-52.0) % MCV 81.2 (80.0-98.0) fL MCH 28.8 (27.0-33.0) pg MCHC 35.5 (31.0-36.0) g/dl RDW 13.0 (11.0-16.0) % Plt Count 160 D (160-400) X10*3/uL MPV 10.8 (9.4-12.4) fL Immature Gran % (Auto) 0.2 (0.0-0.4) % Neut % (Auto) 71.5 (45-73) % Lymph % (Auto) 21.8 (20-40) % [place] % (Auto) 5.1 (2-11) % Eos % (Auto) 0.7 (0-4) % Baso % (Auto) 0.7 (0-2) % Lymph # (Auto) 1.8 (1.2-4.9) X10*3/uL [place] # (Auto) 0.4 (0.1-1.2) X10*3/uL Eos # (Auto) 0.1 (0.0-0.4) X10*3/uL Baso # (Auto) 0.1 (0.0-0.2) X10*3/uL Abs Immat Gran (auto) 0.02 (0.00-0.03) X10*3/uL Absolute Neuts (auto) 5.7 (2.0-8.3) x10*3/uL Absolute Nucleated RBC 0.000 (0.0-0.012) X10*3/uL Nucleated RBC % (auto) 0.0 (0.0-0.2) /100WBC Sodium 140 (135-145) mmol/L Potassium 4.1 (3.3-5.1) mmol/L Chloride 103 (96-108) mmol/L Carbon Dioxide 25 (22-29) mmol/L Anion Gap 16 (12-20) BUN 15 (9-16) mg/dL Creatinine 1.00 (0.5-1.4) mg/dL Estim Creat Clear Calc 109.5 Estimated GFR > 60 Random Glucose 100 (60-115) mg/dL Calcium 10.2 (8.4-10.2) mg/dL Total Bilirubin 0.6 (0.0-1.0) mg/dL AST 38 H (5-37) U/L ALT 23 (0-40) U/L Alkaline Phosphatase 71 (39-117) U/L Total Protein 8.0 (6.5-8.0) g/dL Albumin 4.9 (3.5-5.0) g/dL Ethyl Alcohol < 10 mg/dL External Record Review External record reviewed: Inpatient record Social Determinants Patient?s care significantly limited by Social Determinants of Health including: Problems related to primary support group Discharge Plan Discharge Clinical Impression: Suicidal ideation Patient Disposition: Still a Patient Prescriptions: No Action methadone 10 mg/mL Concentrate 125 mg PO DAILY Interventions: [place]-Suicide Risk Severity Scale Last Done: 05/06/24 07:35 Print Language: Kyrgyz
--- NOTE | 2024-05-06 07:27 | HE.PHANOTE ---
METHADONE Dose: 125mg per Ruma GUERRERO at [facility]. Last dosed on 05/05/24 @0540. Verified by Dina ROLON.
[2024-05-06] MEDS: methADONE HCl 20 MG/2 ML ORAL.CONC 125 MG PO (08:15)
[2024-05-06 09:58] LABS: Appearance Urine Clear; Color Urine Dark Yellow; Glucose Urine UA Negative (Negative); Leukocyte Esterase Urine Negative (Negative); Nitrite Urine Negative (Negative); Specific Gravity - Urine >= 1.030 (1.005-1.025); Urine Blood Negative (Negative); Urine Ketones Negative (Negative); Urine Protein Trace mg/dL (Neg-Trace)
[2024-05-06 10:07] LABS: Amphetamine Screen Urine Not Detected (Not Detect); Barbiturates, Urine Not Detected (Not Detect); Benzodiazepines Screen Urine POSITIVE (Not Detect); Buprenorphine Scr Not Detected (Not Detect); Cannabinoid Screen Urine POSITIVE (Not Detect); Cocaine Screen Urine POSITIVE (Not Detect); Fentanyl, urine POSITIVE (Not Detect); Methadone Screen, Urine Positive (Not Detect); Opiate Screen Urine POSITIVE (Not Detect); Oxycodone Screen Urine Not Detected (Not Detect); Phencyclidine Screen Urine Not Detected (Not Detect)
[2024-05-06 13:53] VITALS: RESP 14
--- NOTE | 2024-05-06 15:29 | MHC.CARE ---
Pt was accepted to [facility] by Jessica. MADELINE LINO. The accepting provider is Dr. Hess. Pending repeat vitals. [place] [address]. Pod ОЛЬГА Hunter and CARE team was notified of placement.
[2024-05-06 15:53] VITALS: BP 126/83; PULSE 52; RESP 16; TEMP 36.3; O2SAT 95
--- NOTE | 2024-05-06 16:04 | MHC.EDTECH ---
Transport was booked with [facility] @[id number]. ETA is 1 hour.
[2024-05-06 17:21] VITALS: BP 132/68; PULSE 84; RESP 16; TEMP 36.3; O2SAT 98
== END 2024-05-06 17:22 ==
PROVIDERS: Emergency Provider Emergency Medicine
DX: F33.1 Major depressive disorder, recurrent, moderate (principal); R45.851 Suicidal ideations; M79.602 Pain in left arm; F17.210 Nicotine dependence, cigarettes, uncomplicated; F11.10 Opioid abuse, uncomplicated; F14.10 Cocaine abuse, uncomplicated; Z79.899 Other long term (current) drug therapy
CPT/HCPCS: 36415; 80053; 80307; 81003; 85025; 99285; S9485

== ENCOUNTER 2024-07-15 12:55 | Emergency (ER) | payer OTHER, SELFPAY ==
[2024-07-15 13:02] VITALS: BP 144/96; PULSE 122; RESP 16; TEMP 37.4; O2SAT 93; BMI 25.5
--- NOTE | 2024-07-15 13:03 | ED.GENADULT ---
HPI - General Adult General Chief complaint: Overdose Stated complaint: medication Time Seen by Provider: 07/15/24 13:29 Source: patient and family Mode of arrival: ambulatory Limitations: other (intoxication) History of Present Illness ED Provider: CAROLE MIN narrative: 34 yo male with PMH of depression, prior SI attempts states he left sober house in [place] about a week or more ago and was with his girlfriend and mom. He had issues with his girlfriend and has been using drugs since including something called 2CB which is a synthetic psychedelic. He has been tripping and hallucinating all week he notes he is paranoid and feels really messed up. He told me when he got here I could call his mom to let her know where he was. She was notified and reports he sent text messages stating SI with plan to jump off bridge or hang himself. He has hx of prior attempts and drug use. He is not very forthcoming with me and just laughs at times and does not know where he is or what year/sat MD complaint: drug abuse Onset (ago): week(s) (1+) Severity: severe Relieving factors: none Exacerbating factors: other (drug use) Associated symptoms: other (insomnia, anxiety, delusions, paranoia) Treatments prior to arrival: none Related Data Home Medications ?Medication ?Instructions ?Recorded ?Confirmed methadone 10 mg/mL oral concentrate 125 mg PO DAILY 05/06/24 05/06/24 Allergies Allergy/AdvReac Type Severity Reaction Status Date / Time amoxicillin [AMOXICILLIN] Allergy Unknown UNKNOWN Verified 07/15/24 13:05 penicillin V Allergy Unknown Hives Verified 07/15/24 13:05 Penicillins [PENICILLINS] Allergy Unknown SWELLING Verified 07/15/24 13:05 Review of Systems Review of Systems: Constitutional : No Fever, No Chills, No Fatigue ENT/Mouth : No sore throat, No Rhinorrhea Eyes: No Eye Pain, No Swelling, No Redness Cardiovascular : No Chest Pain, No SOB, No Dyspnea on Exertion Respiratory : No Cough, No Sputum Gastrointestinal : No Nausea, No Vomiting, No Diarrhea, No abdominal Pain Genitourinary : No Dysuria, No Urinary Frequency, No Hematuria, Musculoskeletal : No joint pain, No Myalgias, No Joint Swelling Skin : No Skin Lesions, No rash Neuro : No Weakness, No Numbness, No Dizziness, no Headache Psych : pos Anxiety/Panic, No Depression All other systems reviewed and are negative [facility] Past Medical History Attestation statement: The following information was validated with the patient. Source: old records reviewed Medical History Polysubstance (including opioids) dependence, daily use No known health problems Social History Social History Household Members: Other Housing: Homeless Do you presently have visiting nurse or other home services: No Alcohol intake: current Alcohol intake frequency: a few times a month Alcohol type: hard liquor Patient Tobacco Use Status: Current everyday Tobacco user Tobacco use type: Cigarette Cigarette Packs Per Day: 1 Cigarettes Per Day: 20.0 Years Smoked: 10 e-Cigarette/Vaping Use: Currently Using Second Hand Smoke Exposure: No Substance Use Type: Amphetamines, Crack/Cocaine, Marijuana and Opiates Advance Directives: No service: No Sexual orientation: Straight/Heterosexual Physical Exam ED Vital Signs: Vital Signs - 24 hr 07/15/24 13:02 Temperature 99.4 F Pulse Rate 122 H Respiratory Rate 16 Blood Pressure 144/96 H Pulse Oximetry 93 Oxygen Delivery Method Room Air BMI result Body Mass Index 25.5 Appearance: Alert. Oriented X2. No acute distress. Eyes: Pupils equal, round and reactive to light. dilated 5mm ENT: Pharynx normal. Neck: Normal inspection. Neck supple. CVS: tachycardic heart rate and rhythm. Pulses normal. Respiratory: No respiratory distress. Breath sounds normal. Abdomen: Soft and nontender. Skin: Skin warm and dry. Normal skin color. Normal skin turgor. Extremities: No lower extremity edema. No calf ttp Neuro: Oriented X 2. No motor deficit. No sensory deficit. Course Course Course Narrative: This is a rapid medical exam performed by Sue Bartlett NP: Additional HPI, ROS, PE not included below will be deferred to primary provider. Patient is a 34-year-old male with history of depression, opioid use disorder, polysubstance use disorder presenting with paranoia, bad trip, after inhaling about a quarter of a gram of 2C-B (similar to mescaline) 2 hours ago. Waves of sweats/chills. Denies using any other substances. Denies SI or HI. HR 120s in triage. Plan: labs, urine drug screen Reevaluation(s) Reevaluation #1: given CPK 2,000 will give 3L of fluids, repeat Cr and CPK after 3L labs ordered signed out to Dr. Hui 4pm Medical Decision Making Medical Decision Making [facility] Narrative: 34 yo male with PMH of depression, prior SI attempts here with c/o tripping after using 2CB which is a psychedelic he denies any other drug use. At this time he is hallucinating and mom is also concerned about SI statements and text messages. He is not coherent enough or have a good thought process right now to discuss his mental health will give fluids, IV ativan, S12 until he can have a full evaluation by CARE team Differential Diagnosis Differential Diagnoses: The differential diagnosis associated with the presentation includes drug use, SI Admission/Observation Consideration of admission/observation: Escalation of care including admission/observation considered physician observation started at 223pm pending labs and CARE team consult Consult Healthcare Provider Management of the patient was discussed with: Behavioral Health Provider Lab Data [facility] Lab Attestation statement: I reviewed the patient's lab results. 07/15/24 13:31 07/15/24 13:31 Labs: Lab Results 07/15/24 07/15/24 Range/Units 13:31 13:32 WBC 7.2 (4.8-10.8) X10*3/uL RBC 5.23 (4.60-5.80) X10*6/uL Hgb 14.9 (14.0-18.0) g/dl Hct 42.0 (42.0-52.0) % MCV 80.3 (80.0-98.0) fL MCH 28.5 (27.0-33.0) pg MCHC 35.5 (31.0-36.0) g/dl RDW 13.3 (11.0-16.0) % Plt Count 208 D (160-400) X10*3/uL MPV 10.6 (9.4-12.4) fL Immature Gran % (Auto) 0.1 (0.0-0.4) % Neut % (Auto) 80.3 H (45-73) % Lymph % (Auto) 13.7 L (20-40) % [place] % (Auto) 4.8 (2-11) % Eos % (Auto) 0.3 (0-4) % Baso % (Auto) 0.8 (0-2) % Lymph # (Auto) 1.0 L (1.2-4.9) X10*3/uL [place] # (Auto) 0.4 (0.1-1.2) X10*3/uL Eos # (Auto) 0.0 (0.0-0.4) X10*3/uL Baso # (Auto) 0.1 (0.0-0.2) X10*3/uL Abs Immat Gran (auto) 0.01 (0.00-0.03) X10*3/uL Absolute Neuts (auto) 5.8 (2.0-8.3) x10*3/uL Absolute Nucleated RBC 0.000 (0.0-0.012) X10*3/uL Nucleated RBC % (auto) 0.0 (0.0-0.2) /100WBC Urine Color Dark Yellow Urine Appearance Clear Urine pH 5.5 (5.0-9.0) Ur Specific [place] >= 1.030 H (1.005-1.025) Urine Protein 300 (3+) H (Neg-Trace) mg/dL Urine Glucose (UA) Negative (Negative) mg/dL Urine Ketones Trace (Negative) mg/dL Urine Blood Negative (Negative) Urine Nitrite Negative (Negative) Ur Leukocyte Esterase Trace H (Negative) Urine RBC 0-2 (0-2) /HPF Urine WBC 0-5 (0-5) /HPF Ur Squamous Epith Cells 0-2 (0-2) /HPF Urine Bacteria None Seen (None Seen) Hyaline Casts 3-5 (0-2) /LPF Urine Opiates Screen Not Detected (Not Detect) Ur Buprenorphine Scrn Not Detected (Not Detect) ng/mL Ur Oxycodone Screen Not Detected (Not Detect) ng/mL Urine Methadone Screen Positive H (Not Detect) ng/mL Urine Fentanyl Screen POSITIVE H (Not Detect) Ur Barbiturates Screen Not Detected (Not Detect) Ur Phencyclidine Scrn Not Detected (Not Detect) Ur Amphetamines Screen POSITIVE H (Not Detect) U Benzodiazepines Scrn Not Detected (Not Detect) Urine Cocaine Screen POSITIVE H (Not Detect) U Marijuana (THC) Screen POSITIVE H (Not Detect) Independent Interpretation I performed an independent interpretation of an: EKG Interpretation: Rate: 124 Rhythm: sinus tachycardia Conger: normal Normal P waves. Normal MARKOS. Normal QRS complex. ST T wave : no YANELIS, nonspecific ST T wave changes V4-V6 qTC: 465 prior studies: no prior The study has been interpreted contemporaneously by me. . Critical Care Time Critical Care Time Critical Care Time: Yes Total Critical Care Time: 45 Attestation: family discussion, 3L of IVF, repeat labs, IV ativan for management of drug induced psychosis I attest to this time spent taking care of the patient Discharge Plan Discharge Clinical Impression: Polysubstance abuse, Rhabdomyolysis Patient Disposition: Still a Patient Prescriptions: No Action methadone 10 mg/mL Concentrate 125 mg PO DAILY Print Language: Kinyarwanda
--- NOTE | 2024-07-15 13:06 | ECG_ITS ---
Test Reason : DRUG INGESTION Blood Pressure : / mmHG Vent. Rate : 124 BPM Atrial Rate : 124 BPM P-R Int : 144 ms QRS Dur : 102 ms QT Int : 324 ms P-R-T Axes : 045 033 015 degrees QTc Int : 465 ms Sinus tachycardia Possible Inferior infarct (cited on or before 22-DEC-2022) Abnormal ECG When compared with ECG of 22-DEC-2022 12:07, Vent. rate has increased BY 65 BPM Questionable change in initial forces of Inferior leads Nonspecific T wave abnormality now evident in Lateral leads Referred By: Lindsey Bartlett Electronically Signed By:VICENTE MORENO
[2024-07-15 13:37] LABS: MANUAL DIFF FLAG NO
[2024-07-15 13:39] LABS: Appearance Urine Clear; Color Urine Dark Yellow; Glucose Urine UA Negative (Negative); Leukocyte Esterase Urine Trace (Negative); Nitrite Urine Negative (Negative); PH 5.5 (5.0-9.0); Specific Gravity - Urine >= 1.030 (1.005-1.025); UMIC TRIGGER UACC YES; Urine Blood Negative (Negative); Urine Ketones Trace mg/dL (Negative); Urine Protein 300 (3+) mg/dL (Neg-Trace)
[2024-07-15 13:42] LABS: Basophils Absolute Auto 0.1 X10*3/uL (0.0-0.2); Basophils Percent Auto 0.8 % (0-2); Eosinophils Percent Auto 0.3 % (0-4); Hemoglobin 14.9 g/dl (14.0-18.0); Imm Gran Abs Auto 0.01 X10*3/uL (0.00-0.03); Imm Gran Pct Auto 0.1 % (0.0-0.4); Lymphocytes Percent Auto 13.7 % (20-40); Mean Corpuscular HGB Conc 35.5 g/dl (31.0-36.0); Mean Corpuscular Hemoglobin 28.5 pg (27.0-33.0); Mean Corpuscular Volume 80.3 fL (80.0-98.0); Mean Platelet Volume 10.6 fL (9.4-12.4); Monocytes Absolute Auto 0.4 X10*3/uL (0.1-1.2); Monocytes Percent Auto 4.8 % (2-11); Neutrophils Absolute Auto 5.8 x10*3/uL (2.0-8.3); Neutrophils Percent Auto 80.3 % (45-73); Platelet Count 208 X10*3/uL (160-400); Red Blood Count 5.23 X10*6/uL (4.60-5.80); Red Cell Distribution Width 13.3 % (11.0-16.0); White Blood Count 7.2 X10*3/uL (4.8-10.8)
--- NOTE | 2024-07-15 13:43 | PC.NURSE ---
patient brought back to ED21, changed into hospital attire. patient is alert not oriented, not answering any questions, fixated on his hands and moving them. patient pupils large, equal and reactive. patient states he took a psychedelic drug. patient noted to be pale and diaphoretic
[2024-07-15 13:49] LABS: Amphetamine Screen Urine POSITIVE (Not Detect); Barbiturates, Urine Not Detected (Not Detect); Benzodiazepines Screen Urine Not Detected (Not Detect); Buprenorphine Scr Not Detected (Not Detect); Cannabinoid Screen Urine POSITIVE (Not Detect); Cocaine Screen Urine POSITIVE (Not Detect); Fentanyl, urine POSITIVE (Not Detect); Methadone Screen, Urine Positive (Not Detect); Opiate Screen Urine Not Detected (Not Detect); Oxycodone Screen Urine Not Detected (Not Detect); Phencyclidine Screen Urine Not Detected (Not Detect)
[2024-07-15 13:54] LABS: Bacteria Urine None Seen (None Seen); RBC Urine 0-2 /HPF (0-2); Squamous Epithelial Cell Urine 0-2 /HPF (0-2); WBC Urine 0-5 /HPF (0-5)
[2024-07-15] MEDS: 0.9 % Sodium Chloride 1,000 ML 999 ML IV ×3 (14:18→16:14)
[2024-07-15] MEDS: LORazepam 2 MG/ML VIAL IVPUSH (14:18)
[2024-07-15 14:23] LABS: Anion Gap 16 (12-20)
[2024-07-15 14:32] LABS: Alanine Aminotransferase 22 U/L (0-40); Albumin Level 5.2 g/dL (3.5-5.0); Alkaline Phosphatase 77 U/L (39-117); Aspartate Amino Transferase 48 U/L (5-37); Bilirubin Total 0.7 mg/dL (0.0-1.0); Blood Urea Nitrogen 19 mg/dL (9-16); Calcium 10.6 mg/dL (8.4-10.2); Carbon Dioxide 26 mmol/L (22-29); Chloride 105 mmol/L (96-108); Creatinine Clr Calc Pharmacy 74.6; Estimated Glomerular Filt Rate 58; Ethanol < 10 mg/dL; Glucose Random 102 mg/dL (60-115); Potassium 3.8 mmol/L (3.3-5.1); Sodium 143 mmol/L (135-145); Total Protein 8.4 g/dL (6.5-8.0)
[2024-07-15] MEDS: LORazepam 2 MG/ML VIAL 1 MG IVPUSH (15:37)
--- NOTE | 2024-07-15 16:51 | MHC.EDTECH ---
Instructed by RN to not draw patients scheduled 5pm labs due to patient sleeping.
[2024-07-15 17:07] VITALS: PULSE 70; RESP 20
--- NOTE | 2024-07-15 17:07 | PC.NURSE ---
patient asleep, respirations equal and unlabored
[2024-07-15 17:28] VITALS: PULSE 66; RESP 16; O2SAT 93
[2024-07-15 19:09] VITALS: BP 117/57; PULSE 56; RESP 10; TEMP 36.6; O2SAT 95
--- NOTE | 2024-07-15 19:12 | PC.NURSE ---
this rn assumed care of pt, pt resting in stretcher, no acute distress noted. vss.
[2024-07-15 19:35] LABS: Creatinine Clr Calc Pharmacy 110.4; Estimated Glomerular Filt Rate > 60
[2024-07-15 21:00] VITALS: BP 120/53; PULSE 64; RESP 14; TEMP 36.5; O2SAT 96
--- NOTE | 2024-07-15 22:05 | PC.NURSE ---
pt a&ox4, and awake at this time. care team aware that pt is now medically cleared, pt aware of plan.
--- NOTE | 2024-07-15 23:05 | PC.NURSE ---
care team at bedside speaking with pt.
[2024-07-16 06:00] VITALS: BP 101/52; PULSE 50; RESP 18; TEMP 36.7; O2SAT 95
--- NOTE | 2024-07-16 06:16 | PC.NURSE ---
pt allowed to sleep throughout the night, respirations even and unlabored, no acute distress noted. pt continues to have 1:1 sitter at bedside.
--- NOTE | 2024-07-16 08:09 | PC.NURSE ---
Care of Pt assumed at change of shift. Pt is resting comfortably with eye closed on stretcher. NAD, no complaints offered. Pt awaiting Care Team re-assessment this AM.
[2024-07-16 08:50] VITALS: BP 121/72; PULSE 74; RESP 16; O2SAT 98
--- NOTE | 2024-07-16 09:45 | PC.NURSE ---
Call placed to [facility] @ [phone] to verify Methadone for Pt. Spoke with Leonie who verified Pt received take home doses on 07/12/24 for self administering for date 07/12/24-07/18/24 for 100mg. Methadone verification form completed and faxed to Pharmacy; awaiting orders.
--- NOTE | 2024-07-16 09:46 | PHA.MEDREC ---
Addendum entered by Valentin Daniels RPh 07/16/24 09:56: Med rec reviewed by [facility]. Original Note: Pharmacy Consult ? Medication Reconciliation Pharmacy has completed the medication reconciliation. Spoke to patient to confirm med list. Patient was able to tell me his medications . Patient states he should be on Disulfiram 250 mg mg, however he just ran out and can't get a new refills. Last fill date was 06/18/24 for 30 days so patient should still have medications. Patient says he takes Gabapentin 800 mg tid, however claim states Gabapentin 600 mg tid . So, left on what claims states. Patient also states he is on Methadone 100 mg daily from [facility] in [place], last dose was yesterday at 5:00pm.
[2024-07-16] MEDS: LORazepam 1 MG TABLET 2 MG PO (10:01)
[2024-07-16] MEDS: Gabapentin 600 MG TABLET PO (10:02)
[2024-07-16] MEDS: Baclofen 10 MG TABLET PO (10:02)
--- NOTE | 2024-07-16 10:21 | HE.PHANOTE ---
RE METHADONE Pharmacy has recieved patients methadone verification form. Confirmed to get dosed with 100 mg with [facility]. Patient was given take home supplies of 100 mg for 07/12 to 07/18
[2024-07-16 12:31] VITALS: BP 148/90; PULSE 89; RESP 16; TEMP 36.6; O2SAT 98
== END 2024-07-16 12:32 | disposition home or self-care (01) ==
PROVIDERS: Registered Nurse Emergency; Emergency Provider Emergency Medicine
DX: F11.10 Opioid abuse, uncomplicated (principal); F14.10 Cocaine abuse, uncomplicated; F15.10 Other stimulant abuse, uncomplicated; F12.10 Cannabis abuse, uncomplicated; R00.0 Tachycardia, unspecified; F43.9 Reaction to severe stress, unspecified; F33.1 Major depressive disorder, recurrent, moderate; Z71.51 Drug abuse counseling and surveillance of drug abuser; Z51.81 Encounter for therapeutic drug level monitoring; Z79.899 Other long term (current) drug therapy
CPT/HCPCS: 36415; 80053; 80307; 81001; 82550; 82565; 85025; 93005; 96361; 96374; 96376; 99285; J2060; S9485

== ENCOUNTER 2024-07-18 05:56 | Emergency (ER) | payer OTHER, SELFPAY ==
[2024-07-18 06:01] VITALS: BP 130/72; PULSE 72; RESP 20; TEMP 36.7; O2SAT 94; BMI 26.7
--- NOTE | 2024-07-18 06:15 | MHC.EDTECH ---
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
--- NOTE | 2024-07-18 06:42 | MHC.EDTECH ---
This tech found a bike in the entrance of the Emergency room near the wheelchairs. Bike belongs to this patient. the bike is secured with security in the stairwell. patient aware and RN aware
--- NOTE | 2024-07-18 06:48 | ED_ITS ---
HPI - General Adult General Chief complaint: ETOH/Substance Use Stated complaint: chronic dependence/alcohol dependency... Time Seen by Provider: 07/18/24 06:40 Source: patient Mode of arrival: ambulatory Limitations: other (Appears to be under the influence of drugs) History of Present Illness ED Provider: Frank NOVA HPI narrative: This is a 34 yo M hx of opiate use disorder, polysubstance, neuropathy of finger of left hand presents seeking detox. Patient was seen at hospital with hopes to get his own ride to [facility], however this fell through and patient was unable to get there. He was then told to come to the hospital for assitance in getting there or to another detox facility. Patient reports daily drinker last drink was saturday afternoon, typically drinks a pint of vodka every other day. Also reports cocaine use, last used 6 hours ago. Patient reports diffuse headache, and feeling hungry. Not si or hi. Denies CP, SOB, N/V/D, abd pain, MASON, vision changes, dizziness, weakness Related Data Home Medications ?Medication ?Instructions ?Recorded ?Confirmed methadone 10 mg/mL oral concentrate 100 mg PO DAILY 05/06/24 07/16/24 baclofen 10 mg tablet 10 mg PO TID 07/16/24 07/16/24 bupropion HCl 300 mg 24 hr tablet, 300 mg PO DAILY 07/16/24 07/16/24 extended release disulfiram 250 mg tablet 250 mg PO DAILY 07/16/24 07/16/24 gabapentin 600 mg tablet 600 mg PO TID 07/16/24 07/16/24 Allergies Allergy/AdvReac Type Severity Reaction Status Date / Time amoxicillin [AMOXICILLIN] Allergy Unknown UNKNOWN Verified 07/18/24 06:04 penicillin V Allergy Unknown Hives Verified 07/18/24 06:04 Penicillins [PENICILLINS] Allergy Unknown SWELLING Verified 07/18/24 06:04 Review of Systems 2 Review of Systems: Yes all other systems are reviewed and are negative PMFSH Past Medical History Attestation statement: The following information was validated with the patient. Source: old records reviewed and nursing notes reviewed Medical History Polysubstance (including opioids) dependence, daily use No known health problems Social History Social History Household Members: Other Housing: Homeless Do you presently have visiting nurse or other home services: No Alcohol intake: current Alcohol intake frequency: 0-2 drinks per day Alcohol type: hard liquor Patient Tobacco Use Status: Current everyday Tobacco user Tobacco use type: Cigarette Cigarette Packs Per Day: 1 Cigarettes Per Day: 20.0 Years Smoked: 10 Smoked in Last 30 Days: Yes e-Cigarette/Vaping Use: Currently Using Second Hand Smoke Exposure: No Use of substances other than those prescribed or required for medical reasons: Yes Substance Use Type: Crack/Cocaine and Heroin Advance Directives: No Advance Directives Information Provided: Yes Do you have a plan to hurt others: No Plan service: No Sexual orientation: Straight/Heterosexual Physical Exam ED Vital Signs: Vital Signs - 24 hr 07/18/24 06:01 07/18/24 10:17 07/18/24 12:00 Temperature 98.0 F Pulse Rate 72 56 61 Respiratory Rate 20 16 16 Blood Pressure 130/72 128/77 122/81 Pulse Oximetry 94 99 100 Oxygen Delivery Method Room Air Room Air Room Air 07/18/24 14:34 Temperature 98.2 F Pulse Rate 63 Respiratory Rate 19 Blood Pressure 127/90 H Pulse Oximetry 97 Oxygen Delivery Method Room Air BMI result Body Mass Index 26.7 vss Appearance: Alert.? Oriented X3.? No acute distress.? Head: Normocephalic, atraumatic, no step-offs or deformities Eyes: Pupils equal, round and reactive to light.? CVS: Normal heart rate and rhythm.? Pulses normal.? Respiratory: No respiratory distress.? Breath sounds normal.? Abdomen: Soft and nontender.? Skin: Skin warm and dry.? Normal skin color.? Normal skin turgor.? Extremities: No lower extremity edema.? No calf ttp. 5/5 strength to bilateral upper and lower extremities Neuro: Oriented X 3.? No motor deficit.? No sensory deficit. CN 2-12 intact Course Reevaluation(s) Reevaluation #1: CBC with a normocytic anemia noted that appears to be around patient's baseline. Chemistry slightly elevated BUN and creatinine likely secondary to dehydration and or rhabdo. Patient's CPK 1666 consistent with acute rhabdomyolysis likely secondary to drug use. Repeat CPK 1099, 3 L of fluids hung in ordered. Patient's drug tox positive for opiates, methadone, fentanyl, cocaine, marijuana negative salicylates, acetaminophen ethanol. Will repeat CPK and CMP. Patient was seen by recovery Mark Mata and he reported that he thinks he is ?feeling sick? from not using drugs, they spoke to Vega Schultz to verify his methadone dose, based spoke to recreation program specialist Rosetta Sales who states he was last dose observed on 07/12 100 mg of methadone and was given 6 take home doses of methadone he should have been good through today. Juve claims he lost his last dose of methadone and does not have any for today. He also claims he has not used methadone for a couple of days. She reached out to Lanny Figueroa who recommends not giving more than 50 mg of methadone. Will start him on 30 mg. Time: 14:24 Reevaluation #2: Patient's CPK improved, now 932 1 more L of IV fluids ordered. Creatinine also improved. CMP will be ordered for 07:00 tomorrow morning. Plan is for patient to go to [facility] tomorrow morning. At this time he is medically cleared. I do not suspect any changes unless, his labs in the morning are not adequate which would be unlikely due to hydration status. At this time patient to be placed into observation to allow more time for patient to go to recovery tomorrow morning. CMP still pending. I suspect that his CPK will further improve. No medical complaints at this time. Plan is for detox tomorrow Time: 15:25 Medications Administered Discontinued Medications Generic Name Dose Route Start Last Admin Trade Name Viviana PRN Reason Stop Dose Admin Sodium Chloride 1,000 mls @ 999 mls/hr 07/18/24 10:00 07/18/24 12:38 Ns IV 07/18/24 11:00 Infused .Q1H1M MARA Infusion Sodium Chloride 1,000 mls @ 999 mls/hr 07/18/24 10:00 07/18/24 11:55 Ns IV 07/18/24 11:00 Infused .Q1H1M MARA Infusion Sodium Chloride 1,000 mls @ 999 mls/hr 07/18/24 10:00 07/18/24 12:45 Ns IV 07/18/24 11:00 Infused .Q1H1M MARA Infusion Sodium Chloride 1,000 mls @ 999 mls/hr 07/18/24 13:30 07/18/24 15:00 Ns IV 07/18/24 14:30 Infused .Q1H1M MARA Infusion Lorazepam 2 mg 07/18/24 14:02 07/18/24 14:17 Lorazepam 2 Mg/Ml Vial IVPUSH 07/18/24 14:03 2 mg ONCE ONE Administration Methadone HCl 30 mg 07/18/24 14:21 07/18/24 14:59 Methadone Hcl 20 Mg/2 Ml Oral.Conc PO 07/18/24 14:22 30 mg ONCE ONE Administration Medical Decision Making Medical Decision Making [facility] Narrative: 34 yo M presents seeking detox. Mild headache, and hunger reported PE- benign hx and pe - concerning for alcohol dependence and polysubstance abuse. No signs of withdrawal unlikely metabolic derangements. No signs of trauma Plan- medical clearance. Differential Diagnosis Differential Diagnoses: The differential diagnosis associated with the presentation includes hx and pe - concerning for alcohol dependence and polysubstance abuse. No signs of withdrawal unlikely metabolic derangements. No signs of trauma Admission/Observation Consideration of admission/observation: Escalation of care including admission/observation considered Lab Data [facility] Lab Attestation statement: I reviewed the patient's lab results. 07/18/24 08:08 07/18/24 15:02 Labs: Lab Results 07/18/24 07/18/24 07/18/24 Range/Units 08:08 12:46 15:02 WBC 5.5 (4.8-10.8) X10*3/uL RBC 4.81 (4.60-5.80) X10*6/uL Hgb 13.7 L (14.0-18.0) g/dl Hct 39.5 L (42.0-52.0) % MCV 82.1 (80.0-98.0) fL MCH 28.5 (27.0-33.0) pg MCHC 34.7 (31.0-36.0) g/dl RDW 13.4 (11.0-16.0) % Plt Count 151 L D (160-400) X10*3/uL MPV 10.6 (9.4-12.4) fL Immature Gran % (Auto) 0.4 (0.0-0.4) % Neut % (Auto) 71.4 (45-73) % Lymph % (Auto) 21.1 (20-40) % [place] % (Auto) 5.7 (2-11) % Eos % (Auto) 0.7 (0-4) % Baso % (Auto) 0.7 (0-2) % Lymph # (Auto) 1.2 (1.2-4.9) X10*3/uL [place] # (Auto) 0.3 (0.1-1.2) X10*3/uL Eos # (Auto) 0.0 (0.0-0.4) X10*3/uL Baso # (Auto) 0.0 (0.0-0.2) X10*3/uL Abs Immat Gran (auto) 0.02 (0.00-0.03) X10*3/uL Absolute Neuts (auto) 3.9 (2.0-8.3) x10*3/uL Absolute Nucleated RBC 0.000 (0.0-0.012) X10*3/uL Nucleated RBC % (auto) 0.0 (0.0-0.2) /100WBC Sodium 140 139 (135-145) mmol/L Potassium 3.4 3.6 (3.3-5.1) mmol/L Chloride 104 110 H (96-108) mmol/L Carbon Dioxide 28 24 (22-29) mmol/L Anion Gap 11 L 9 L (12-20) BUN 17 H 17 H (9-16) mg/dL Creatinine 1.17 0.99 (0.5-1.4) mg/dL Estim Creat Clear Calc 90.6 107.1 Estimated GFR > 60 > 60 Random Glucose 102 137 H (60-115) mg/dL Calcium 9.2 D 7.7 L D (8.4-10.2) mg/dL Magnesium 2.2 (1.6-2.6) mg/dL Total Bilirubin 0.9 0.5 (0.0-1.0) mg/dL AST 56 H 37 (5-37) U/L ALT 28 20 (0-40) U/L Alkaline Phosphatase 69 49 (39-117) U/L Total Creatine Kinase 1666 H 1099 H 932 H (38-174) U/L Total Protein 7.2 5.1 L (6.5-8.0) g/dL Albumin 4.5 3.2 L (3.5-5.0) g/dL Urine Color Dark Yellow Urine Appearance Clear Urine pH 5.5 (5.0-9.0) Ur Specific [place] >= 1.030 H (1.005-1.025) Urine Protein Trace (Neg-Trace) mg/dL Urine Glucose (UA) Negative (Negative) mg/dL Urine Ketones Trace (Negative) mg/dL Urine Blood Negative (Negative) Urine Nitrite Negative (Negative) Ur Leukocyte Esterase Negative (Negative) Salicylates < 5.0 L (15-30) mg/dL Urine Opiates Screen POSITIVE H (Not Detect) Ur Buprenorphine Scrn Not Detected (Not Detect) ng/mL Ur Oxycodone Screen Not Detected (Not Detect) ng/mL Urine Methadone Screen Positive H (Not Detect) ng/mL Urine Fentanyl Screen POSITIVE H (Not Detect) Acetaminophen < 3 (<30) mcg/mL Ur Barbiturates Screen Not Detected (Not Detect) Ur Phencyclidine Scrn Not Detected (Not Detect) Ur Amphetamines Screen Not Detected (Not Detect) U Benzodiazepines Scrn Not Detected (Not Detect) Urine Cocaine Screen POSITIVE H (Not Detect) U Marijuana (THC) Screen POSITIVE H (Not Detect) Ethyl Alcohol < 10 mg/dL External Record Review External record reviewed: Inpatient record, Office record, Outpatient record, Prior outpatient labs, Prior outpatient radiology, Primary care record and Outside ED record Chronic Conditions Patient?s care impacted by: Other (alcohol abuse, opiate use do ) Critical Care Time Critical Care Time Critical Care Time: Yes Total Critical Care Time: 35 Attestation: I attest to this time spent taking care of the patient, obtaining history, physical, reviewing labs, imaging, treatment of patients condition +/- specialist/hospitalist consult Discharge Plan Discharge Clinical Impression: Polysubstance (including opioids) dependence with physiological dependence, Rhabdomyolysis Patient Disposition: Still a Patient Prescriptions: No Action gabapentin 600 mg tablet 600 mg PO TID disulfiram 250 mg tablet 250 mg PO DAILY baclofen 10 mg tablet 10 mg PO TID bupropion HCl 300 mg tablet extended release 24 hr 300 mg PO DAILY methadone 10 mg/mL Concentrate 100 mg PO DAILY Print Language: Montenegrin
--- NOTE | 2024-07-18 07:20 | MHC.EDTECH ---
Tech of the pt asked for help with phlebotomy, I went to the room, pt refused- he wants to sleep.
[2024-07-18 08:11] LABS: MANUAL DIFF FLAG NO
[2024-07-18 08:14] LABS: Basophils Percent Auto 0.7 % (0-2); Eosinophils Percent Auto 0.7 % (0-4); Hematocrit 39.5 % (42.0-52.0); Hemoglobin 13.7 g/dl (14.0-18.0); Imm Gran Abs Auto 0.02 X10*3/uL (0.00-0.03); Imm Gran Pct Auto 0.4 % (0.0-0.4); Lymphocytes Absolute Auto 1.2 X10*3/uL (1.2-4.9); Lymphocytes Percent Auto 21.1 % (20-40); Mean Corpuscular HGB Conc 34.7 g/dl (31.0-36.0); Mean Corpuscular Hemoglobin 28.5 pg (27.0-33.0); Mean Corpuscular Volume 82.1 fL (80.0-98.0); Mean Platelet Volume 10.6 fL (9.4-12.4); Monocytes Absolute Auto 0.3 X10*3/uL (0.1-1.2); Monocytes Percent Auto 5.7 % (2-11); Neutrophils Absolute Auto 3.9 x10*3/uL (2.0-8.3); Neutrophils Percent Auto 71.4 % (45-73); Platelet Count 151 X10*3/uL (160-400); Red Blood Count 4.81 X10*6/uL (4.60-5.80); Red Cell Distribution Width 13.4 % (11.0-16.0); White Blood Count 5.5 X10*3/uL (4.8-10.8)
[2024-07-18 08:32] LABS: Alanine Aminotransferase 28 U/L (0-40); Albumin Level 4.5 g/dL (3.5-5.0); Alkaline Phosphatase 69 U/L (39-117); Anion Gap 11 (12-20); Aspartate Amino Transferase 56 U/L (5-37); Bilirubin Total 0.9 mg/dL (0.0-1.0); Blood Urea Nitrogen 17 mg/dL (9-16); Calcium 9.2 mg/dL (8.4-10.2); Carbon Dioxide 28 mmol/L (22-29); Chloride 104 mmol/L (96-108); Creatinine Clr Calc Pharmacy 90.6; Estimated Glomerular Filt Rate > 60; Ethanol < 10 mg/dL; Glucose Random 102 mg/dL (60-115); Magnesium 2.2 mg/dL (1.6-2.6); Potassium 3.4 mmol/L (3.3-5.1); Sodium 140 mmol/L (135-145); Total Protein 7.2 g/dL (6.5-8.0)
[2024-07-18 08:46] LABS: Acetaminophen LAB < 3 mcg/mL (<30); Salicylate < 5.0 mg/dL (15-30)
[2024-07-18 10:17] VITALS: BP 128/77; PULSE 56; RESP 16; O2SAT 99
[2024-07-18] MEDS: 0.9 % Sodium Chloride 1,000 ML 999 ML IV ×5 (10:18→15:43)
[2024-07-18 12:00] VITALS: BP 122/81; PULSE 61; RESP 16; O2SAT 100
[2024-07-18 13:03] LABS: Appearance Urine Clear; Color Urine Dark Yellow; Glucose Urine UA Negative (Negative); Leukocyte Esterase Urine Negative (Negative); Nitrite Urine Negative (Negative); PH 5.5 (5.0-9.0); Specific Gravity - Urine >= 1.030 (1.005-1.025); Urine Blood Negative (Negative); Urine Ketones Trace mg/dL (Negative); Urine Protein Trace mg/dL (Neg-Trace)
--- NOTE | 2024-07-18 13:19 | MHC.RECOVRN ---
Met with pt in ED19. Pt AOX4, reporting feeling sick . Pt restless, irritable, asking for his methadone and endorsing withdrawal symptoms. Per pt he took 2cb yesterday which is a mix between LSD and Ecstasy . Pt reportedly started to trip out bad and wanted to be seen in the ED. Pt reported also using heroin daily (~1 bundle per day), last use was yesterday. Also reports daily cocaine use ~1 gram per day. Pt reports he has been on methadone the last 9 months. Vega Schultz was called by tw and waiting for call back to verify methadone dose. Pt was planning on going to [facility] but per pt his ride fell through and he lost his bed there. Pt wants detox and preferably wants to go to [facility]. Referrals to be sent to [facility] and other [facility] facilities for review.
[2024-07-18 13:20] LABS: Amphetamine Screen Urine Not Detected (Not Detect); Barbiturates, Urine Not Detected (Not Detect); Benzodiazepines Screen Urine Not Detected (Not Detect); Buprenorphine Scr Not Detected (Not Detect); Cannabinoid Screen Urine POSITIVE (Not Detect); Cocaine Screen Urine POSITIVE (Not Detect); Fentanyl, urine POSITIVE (Not Detect); Methadone Screen, Urine Positive (Not Detect); Opiate Screen Urine POSITIVE (Not Detect); Oxycodone Screen Urine Not Detected (Not Detect); Phencyclidine Screen Urine Not Detected (Not Detect)
--- NOTE | 2024-07-18 13:38 | MHC.RECOVRN ---
Spoke to Rosetta Reinoso the program management specialist at [facility] in [place]. Rosetta reported that Juve Portillo : 1990 was last dosed on 07/12 100mg of methadone AND was given 6 take home doses through today. She reported the pt should have a dose for today in his person. RN notified.
--- NOTE | 2024-07-18 14:00 | PC.NURSE ---
Patient continues to rest quietly on stretcher at this time, 4th liter of NS hung per order. heat curer working on methadone dosing.
[2024-07-18] MEDS: LORazepam 2 MG/ML VIAL IVPUSH (14:17)
[2024-07-18 14:34] VITALS: BP 127/90; PULSE 63; RESP 19; TEMP 36.8; O2SAT 97
--- NOTE | 2024-07-18 14:44 | MHC.RECOVRN ---
Pt referral packet faxed to [facility] and is undergoing review.
[2024-07-18] MEDS: methADONE HCl 20 MG/2 ML ORAL.CONC 30 MG PO (14:59)
[2024-07-18 15:23] LABS: Alanine Aminotransferase 20 U/L (0-40); Albumin Level 3.2 g/dL (3.5-5.0); Alkaline Phosphatase 49 U/L (39-117); Anion Gap 9 (12-20); Aspartate Amino Transferase 37 U/L (5-37); Bilirubin Total 0.5 mg/dL (0.0-1.0); Blood Urea Nitrogen 17 mg/dL (9-16); Calcium 7.7 mg/dL (8.4-10.2); Carbon Dioxide 24 mmol/L (22-29); Chloride 110 mmol/L (96-108); Creatinine Clr Calc Pharmacy 107.1; Estimated Glomerular Filt Rate > 60; Glucose Random 137 mg/dL (60-115); Potassium 3.6 mmol/L (3.3-5.1); Sodium 139 mmol/L (135-145); Total Protein 5.1 g/dL (6.5-8.0)
--- NOTE | 2024-07-18 16:31 | PC.NURSE ---
Addendum entered by Raissa Gomez RN 07/18/24 16:37: [place] okay with no more IVF, patient can get finger stick lab in AM before detox. Original Note: Patient c/o pain in R upper arm, US line infiltrated, line removed. Patient refusing new IV access at this time, doesn't think he needs any more IV fluids, provider made aware.
--- NOTE | 2024-07-18 17:06 | MHC.RECOVRN ---
Updated information highlighting pt's medical clearance requested by [facility] and updated documentation faxed over at 1630. Plan is for tw to send updated labs tomorrow morning and have pt interview over the phone.
[2024-07-18 18:23] VITALS: BP 126/77; PULSE 76; RESP 16; TEMP 36.8; O2SAT 97
[2024-07-19 05:46] VITALS: BP 126/89; PULSE 69; RESP 17; TEMP 36.6; O2SAT 100
[2024-07-19 07:37] LABS: Alanine Aminotransferase 21 U/L (0-40); Albumin Level 3.4 g/dL (3.5-5.0); Alkaline Phosphatase 54 U/L (39-117); Anion Gap 9 (12-20); Aspartate Amino Transferase 32 U/L (5-37); Bilirubin Total 0.5 mg/dL (0.0-1.0); Blood Urea Nitrogen 13 mg/dL (9-16); Calcium 8.3 mg/dL (8.4-10.2); Carbon Dioxide 23 mmol/L (22-29); Chloride 111 mmol/L (96-108); Estimated Glomerular Filt Rate > 60; Glucose Random 98 mg/dL (60-115); Potassium 3.4 mmol/L (3.3-5.1); Sodium 140 mmol/L (135-145); Total Protein 5.5 g/dL (6.5-8.0)
[2024-07-19] MEDS: LORazepam 1 MG TABLET 2 MG PO (07:49)
[2024-07-19] MEDS: methADONE HCl 20 MG/2 ML ORAL.CONC 30 MG PO (07:50)
[2024-07-19 08:07] VITALS: BP 153/96; PULSE 79; RESP 18
[2024-07-19 08:50] VITALS: BP 153/96; PULSE 79; RESP 18; TEMP -17.7; TEMP 0; O2SAT 0
== END 2024-07-19 08:51 | disposition home or self-care (01) ==
PROVIDERS: Physician Assistant; Emergency Provider Emergency Medicine
DX: F19.288 Other psychoactive substance dependence with other psychoactive substance-induced disorder (principal); M62.82 Rhabdomyolysis; F10.10 Alcohol abuse, uncomplicated; Y90.0 Blood alcohol level of less than 20 mg/100 ml; F11.20 Opioid dependence, uncomplicated; F33.2 Major depressive disorder, recurrent severe without psychotic features; G62.9 Polyneuropathy, unspecified; G56.92 Unspecified mononeuropathy of left upper limb; F17.210 Nicotine dependence, cigarettes, uncomplicated; Z79.899 Other long term (current) drug therapy
CPT/HCPCS: 36415; 80053; 80143; 80179; 80307; 81003; 82550; 83735; 85025; 96360; 96361; 96374; 99285; J2060

== ENCOUNTER 2024-07-23 10:03 | Emergency (ER) | payer OTHER, SELFPAY ==
--- NOTE | 2024-07-23 | ECG_ITS ---
Test Reason : SUBSTANCE ABUSE Blood Pressure : / mmHG Vent. Rate : 099 BPM Atrial Rate : 099 BPM P-R Int : 128 ms QRS Dur : 102 ms QT Int : 378 ms P-R-T Axes : 058 035 035 degrees QTc Int : 485 ms Normal sinus rhythm Incomplete right bundle branch block Prolonged QT Abnormal ECG When compared with ECG of 15-JUL-2024 13:07, Borderline criteria for Inferior infarct are no longer Present Nonspecific T wave abnormality no longer evident in Inferior leads Nonspecific T wave abnormality no longer evident in Lateral leads Referred By: Generic ED Physician Electronically Signed By:VICENTE MORENO
[2024-07-23 10:11] VITALS: BP 155/86; PULSE 108; RESP 18; TEMP 36.8; O2SAT 93; BMI 25.1
[2024-07-23 10:36] LABS: MANUAL DIFF FLAG NO
[2024-07-23 10:38] LABS: Basophils Absolute Auto 0.1 X10*3/uL (0.0-0.2); Eosinophils Absolute Auto 0.1 X10*3/uL (0.0-0.4); Eosinophils Percent Auto 1.4 % (0-4); Hematocrit 38.4 % (42.0-52.0); Hemoglobin 13.6 g/dl (14.0-18.0); Imm Gran Abs Auto 0.01 X10*3/uL (0.00-0.03); Imm Gran Pct Auto 0.2 % (0.0-0.4); Lymphocytes Absolute Auto 1.2 X10*3/uL (1.2-4.9); Lymphocytes Percent Auto 24.1 % (20-40); Mean Corpuscular HGB Conc 35.4 g/dl (31.0-36.0); Mean Corpuscular Hemoglobin 28.6 pg (27.0-33.0); Mean Corpuscular Volume 80.8 fL (80.0-98.0); Mean Platelet Volume 10.3 fL (9.4-12.4); Monocytes Absolute Auto 0.2 X10*3/uL (0.1-1.2); Monocytes Percent Auto 4.5 % (2-11); Neutrophils Absolute Auto 3.5 x10*3/uL (2.0-8.3); Neutrophils Percent Auto 68.8 % (45-73); Platelet Count 189 X10*3/uL (160-400); Red Blood Count 4.75 X10*6/uL (4.60-5.80); Red Cell Distribution Width 13.4 % (11.0-16.0); White Blood Count 5.1 X10*3/uL (4.8-10.8)
[2024-07-23 10:51] LABS: Alanine Aminotransferase 27 U/L (0-40); Albumin Level 4.9 g/dL (3.5-5.0); Alkaline Phosphatase 71 U/L (39-117); Anion Gap 20 (12-20); Aspartate Amino Transferase 38 U/L (5-37); Bilirubin Direct 0.2 mg/dL (0.0-0.5); Bilirubin Total 0.7 mg/dL (0.0-1.0); Blood Urea Nitrogen 13 mg/dL (9-16); Calcium 10.1 mg/dL (8.4-10.2); Carbon Dioxide 23 mmol/L (22-29); Chloride 101 mmol/L (96-108); Estimated Glomerular Filt Rate > 60; Ethanol < 10 mg/dL; Glucose Random 82 mg/dL (60-115); Potassium 3.8 mmol/L (3.3-5.1); Sodium 140 mmol/L (135-145)
--- NOTE | 2024-07-23 11:04 | ED_ITS ---
HPI - Alcohol General Chief Complaint: ETOH/Substance Use Stated Complaint: Following up - seen recently Time Seen by Provider: 07/23/24 10:37 Source: patient Mode of arrival: ambulatory Limitations: no limitations History of Present Illness HPI narrative: 34-year-old undomicile crack cocaine heroin and alcohol use disorder neuropathy fingers of left hand who was just here approximately 4 days ago patient was supposed to follow-up with outpatient assistance he states he has been drinking his last drink was at 03:00 he denies any falls or injuries he is requesting detox again. MD complaint: alcohol intoxication and desires rehab Related Data Home Medications ?Medication ?Instructions ?Recorded ?Confirmed methadone 10 mg/mL oral concentrate 100 mg PO DAILY 05/06/24 07/18/24 baclofen 10 mg tablet 10 mg PO TID 07/16/24 07/18/24 bupropion HCl 300 mg 24 hr tablet, 300 mg PO DAILY 07/16/24 07/18/24 extended release gabapentin 600 mg tablet 800 mg PO TID 07/16/24 07/18/24 Allergies Allergy/AdvReac Type Severity Reaction Status Date / Time amoxicillin [AMOXICILLIN] Allergy Unknown UNKNOWN Verified 07/23/24 10:14 penicillin V Allergy Unknown Hives Verified 07/23/24 10:14 Penicillins [PENICILLINS] Allergy Unknown SWELLING Verified 07/23/24 10:14 Review of Systems 2 Review of Systems: Review of systems: General: Patient denies any fever chills recent illness or falls Musculoskeletal: Denies back pain or body aches or other injuries HEENT: denies headache, runny nose, ear pain Respiratory: denies shortness of breath, cough Cardiovascular: no chest pain or palpitations : denies dysuria, frequency Abdomen: no nausea vomiting denies abdominal pain Extremities: no swelling, no pain Skin: no diaphoresis Yes all other systems are reviewed and are negative PMFSH Past Medical History Medical History Polysubstance (including opioids) dependence, daily use No known health problems Social History Social History Household Members: Other Housing: Homeless Do you presently have visiting nurse or other home services: No Alcohol intake: current Alcohol intake frequency: 0-2 drinks per day Alcohol type: hard liquor Patient Tobacco Use Status: Current everyday Tobacco user Tobacco use type: Cigarette Cigarette Packs Per Day: 1 Cigarettes Per Day: 20.0 Years Smoked: 10 e-Cigarette/Vaping Use: Currently Using Second Hand Smoke Exposure: No Substance Use Type: Crack/Cocaine and Heroin Advance Directives: No service: No Sexual orientation: Straight/Heterosexual Physical Exam ED Vital Signs: Vital Signs - 24 hr 07/23/24 10:11 07/23/24 11:09 Temperature 98.3 F Pulse Rate 108 H 80 Respiratory Rate 18 18 Blood Pressure 155/86 H 151/91 H Pulse Oximetry 93 99 Oxygen Delivery Method Room Air Room Air BMI result Body Mass Index 25.1 General: Well-appearing well-nourished in no signs of distress HEENT: Normocephalic atraumatic Neck: No signs of JVD, no masses no tenderness or lymphadenopathy Cardiovascular: Regular rate and rhythm Respiratory: Clear to auscultation bilaterally Abdomen: Soft nontender no masses Extremities: Normal pedal pulses no signs of edema Skin: Dry warm no rashes signs of IV drug use to both hands Back: No tenderness full ROM Course Course Course Narrative: Patient cleared given his methadone as the patient has been calm here still pending evaluation by addiction medicine. Patient was seen and will go to outpatient detox Medical Decision Making Medical Decision Making [facility] Narrative: Patient with substance abuse currently tachycardic I will give the patient some fluids some Ativan and check labs Differential Diagnosis Differential Diagnoses: The differential diagnosis associated with the presentation includes Substance abuse patient denies SI or HI however the patient volumes by care team as well as addiction medicine Admission/Observation Consideration of admission/observation: Escalation of care including admission/observation considered Consult Healthcare Provider Management of the patient was discussed with: Behavioral Health Provider Lab Data [facility] Lab Attestation statement: I reviewed the patient's lab results. 07/23/24 10:30 07/23/24 10:30 Labs: Lab Results 07/23/24 07/23/24 Range/Units 10:30 12:56 WBC 5.1 (4.8-10.8) X10*3/uL RBC 4.75 (4.60-5.80) X10*6/uL Hgb 13.6 L (14.0-18.0) g/dl Hct 38.4 L (42.0-52.0) % MCV 80.8 (80.0-98.0) fL MCH 28.6 (27.0-33.0) pg MCHC 35.4 (31.0-36.0) g/dl RDW 13.4 (11.0-16.0) % Plt Count 189 D (160-400) X10*3/uL MPV 10.3 (9.4-12.4) fL Immature Gran % (Auto) 0.2 (0.0-0.4) % Neut % (Auto) 68.8 (45-73) % Lymph % (Auto) 24.1 (20-40) % Nicholas % (Auto) 4.5 (2-11) % Eos % (Auto) 1.4 (0-4) % Baso % (Auto) 1.0 (0-2) % Lymph # (Auto) 1.2 (1.2-4.9) X10*3/uL Nicholas # (Auto) 0.2 (0.1-1.2) X10*3/uL Eos # (Auto) 0.1 (0.0-0.4) X10*3/uL Baso # (Auto) 0.1 (0.0-0.2) X10*3/uL Abs Immat Gran (auto) 0.01 (0.00-0.03) X10*3/uL Absolute Neuts (auto) 3.5 (2.0-8.3) x10*3/uL Absolute Nucleated RBC 0.000 (0.0-0.012) X10*3/uL Nucleated RBC % (auto) 0.0 (0.0-0.2) /100WBC Sodium 140 (135-145) mmol/L Potassium 3.8 (3.3-5.1) mmol/L Chloride 101 (96-108) mmol/L Carbon Dioxide 23 (22-29) mmol/L Anion Gap 20 (12-20) BUN 13 (9-16) mg/dL Creatinine 0.93 (0.5-1.4) mg/dL Estim Creat Clear Calc 114.0 Estimated GFR > 60 Random Glucose 82 (60-115) mg/dL Calcium 10.1 D (8.4-10.2) mg/dL Total Bilirubin 0.7 (0.0-1.0) mg/dL Direct Bilirubin 0.2 (0.0-0.5) mg/dL AST 38 H (5-37) U/L ALT 27 (0-40) U/L Alkaline Phosphatase 71 (39-117) U/L Total Protein 8.0 (6.5-8.0) g/dL Albumin 4.9 (3.5-5.0) g/dL Urine Color Yellow Urine Appearance Clear Urine pH 6.5 (5.0-9.0) Ur Specific [place] 1.020 (1.005-1.025) Urine Protein 30 (1+) H (Neg-Trace) mg/dL Urine Glucose (UA) Negative (Negative) mg/dL Urine Ketones 40 (Negative) mg/dL Urine Blood Negative (Negative) Urine Nitrite Negative (Negative) Ur Leukocyte Esterase Negative (Negative) Urine RBC 0-2 (0-2) /HPF Urine WBC 0-5 (0-5) /HPF Ur Squamous Epith Cells 0-2 (0-2) /HPF Urine Bacteria None Seen (None Seen) Hyaline Casts 0-2 (0-2) /LPF Urine Opiates Screen POSITIVE H (Not Detect) Ur Buprenorphine Scrn Not Detected (Not Detect) ng/mL Ur Oxycodone Screen Not Detected (Not Detect) ng/mL Urine Methadone Screen Positive H (Not Detect) ng/mL Urine Fentanyl Screen POSITIVE H (Not Detect) Ur Barbiturates Screen Not Detected (Not Detect) Ur Phencyclidine Scrn Not Detected (Not Detect) Ur Amphetamines Screen Not Detected (Not Detect) U Benzodiazepines Scrn Not Detected (Not Detect) Urine Cocaine Screen POSITIVE H (Not Detect) U Marijuana (THC) Screen POSITIVE H (Not Detect) Ethyl Alcohol < 10 mg/dL Medications Administered Discontinued Medications Generic Name Dose Route Start Last Admin Trade Name Freq PRN Reason Stop Dose Admin Sodium Chloride 1,000 mls @ 999 mls/hr 07/23/24 10:45 07/23/24 13:02 Ns IV 07/23/24 11:45 Infused .Q1H1M MARA Infusion Lorazepam 1 mg 07/23/24 10:40 07/23/24 11:22 Lorazepam 2 Mg/Ml Vial IVPUSH 07/23/24 10:41 1 mg ONCE ONE Administration Methadone HCl 30 mg 07/23/24 12:22 07/23/24 13:26 Methadone Hcl 20 Mg/2 Ml Oral.Conc PO 07/23/24 12:23 30 mg ONCE ONE Administration Discharge Plan Discharge Clinical Impression: Polysubstance (including opioids) dependence with physiological dependence, Alcoholic intoxication Patient Disposition: Still a Patient Instructions: Abuse of Alcohol (DC), Cannabis Abuse (ED), Cocaine Abuse (ED), Methamphetamine Abuse (ED) Additional Instructions: You were seen today for polysubstance abuse. Please follow up with detox as is planned at 20:00 today. Prescriptions: No Action gabapentin 600 mg tablet 800 mg PO TID baclofen 10 mg tablet 10 mg PO TID bupropion HCl 300 mg tablet extended release 24 hr 300 mg PO DAILY methadone 10 mg/mL Concentrate 100 mg PO DAILY Patient Comments: confirmed by chain saw mechanic Print Language: French
[2024-07-23 11:09] VITALS: BP 151/91; PULSE 80; RESP 18; O2SAT 99
[2024-07-23] MEDS: LORazepam 2 MG/ML VIAL 1 MG IVPUSH (11:22)
[2024-07-23] MEDS: 0.9 % Sodium Chloride 1,000 ML 999 ML IV (11:22)
--- NOTE | 2024-07-23 11:22 | PC.NURSE ---
Pt. medicated per DEC.
--- NOTE | 2024-07-23 11:25 | MHC.RECOVRN ---
Met with pt in [id number] after pt presented to the ED reporting request to be placed at [facility]. Reports cocaine, heroin/fentanyl, and alcohol use. Prior to meeting with pt, t/w reached out to Fabian Brush at [facility] who reports pt was supposed to go to their facility last week, however, the pt did not [facility] picker their phone calls. Pt would need medical clearance again prior to resubmitting referral. In addition, there is NO bed availability today. Ray reports [facility] may have availability today. T/w called [facility] and [facility], no male [facility] beds available today. Met with pt in [id number], pt laying in bed, awake, alert, easily engages in conversation. Pt reports [facility] was supposed to pick him up but they did not show. Pt informed he would be placed back on the wait list if that is the facility he wishes to go to. Pt reports he is willing to go to ANY facility today. Pt reports heroin/fentanyl use, 1-2 bundles daily, IV; cocaine, 1 gram daily, IV; alcohol, 10 nips daily. Pt reports last use of all substances was yesterday. Pt appears restless and diaphoretic, reports anxiety and upset stomach. Requesting methadone. Pt reports he had recently been on 100 mg methadone daily through [facility] in [place], however, he was unable to return to [facility] picker take home bottles. Pt agreeable to referrals to any facility, as previously stated. Discussed with ED provider.
[2024-07-23 13:04] LABS: Appearance Urine Clear; Color Urine Yellow; Glucose Urine UA Negative (Negative); Leukocyte Esterase Urine Negative (Negative); Nitrite Urine Negative (Negative); PH 6.5 (5.0-9.0); UMIC TRIGGER UACC YES; Urine Blood Negative (Negative); Urine Ketones 40 mg/dL (Negative); Urine Protein 30 (1+) mg/dL (Neg-Trace)
[2024-07-23 13:11] LABS: Bacteria Urine None Seen (None Seen); Hyaline Casts Urine 0-2 /LPF (0-2); RBC Urine 0-2 /HPF (0-2); Squamous Epithelial Cell Urine 0-2 /HPF (0-2); WBC Urine 0-5 /HPF (0-5)
[2024-07-23 13:13] LABS: Amphetamine Screen Urine Not Detected (Not Detect); Barbiturates, Urine Not Detected (Not Detect); Benzodiazepines Screen Urine Not Detected (Not Detect); Buprenorphine Scr Not Detected (Not Detect); Cannabinoid Screen Urine POSITIVE (Not Detect); Cocaine Screen Urine POSITIVE (Not Detect); Fentanyl, urine POSITIVE (Not Detect); Methadone Screen, Urine Positive (Not Detect); Opiate Screen Urine POSITIVE (Not Detect); Oxycodone Screen Urine Not Detected (Not Detect); Phencyclidine Screen Urine Not Detected (Not Detect)
[2024-07-23] MEDS: methADONE HCl 20 MG/2 ML ORAL.CONC 30 MG PO (13:26)
--- NOTE | 2024-07-23 14:36 | MHC.RECOVRN ---
Pt accepted to [facility] for 8PM admission, will be transported via Ly.
[2024-07-23 16:04] VITALS: BP 122/64; PULSE 67; RESP 16; O2SAT 94
--- NOTE | 2024-07-23 16:19 | PC.NURSE ---
Assumed care of patient at 1615, patient is calm and cooperative, offering no complaints, aware of plan of care for [facility] at 8pm
[2024-07-23 19:35] VITALS: BP 115/70; PULSE 80; RESP 16; TEMP 37; O2SAT 99
== END 2024-07-23 19:38 ==
PROVIDERS: Emergency Provider Student in an Organized Health Care Education/Training Program
DX: F11.20 Opioid dependence, uncomplicated (principal); F10.129 Alcohol abuse with intoxication, unspecified; G62.9 Polyneuropathy, unspecified; Y90.0 Blood alcohol level of less than 20 mg/100 ml; R94.31 Abnormal electrocardiogram [ECG] [EKG]; F14.10 Cocaine abuse, uncomplicated; F12.10 Cannabis abuse, uncomplicated; F17.210 Nicotine dependence, cigarettes, uncomplicated; Z79.899 Other long term (current) drug therapy; Z51.81 Encounter for therapeutic drug level monitoring; Z71.51 Drug abuse counseling and surveillance of drug abuser
CPT/HCPCS: 36415; 80053; 80307; 81001; 81003; 82248; 85025; 93005; 96361; 96374; 99285; J2060

== ENCOUNTER 2025-07-21 18:28 | Emergency (ER) | payer OTHER, SELFPAY ==
--- NOTE | 2025-07-21 | ECG_ITS ---
Test Reason : OVERDOSE Blood Pressure : */* mmHG Vent. Rate : 74 BPM Atrial Rate : 74 BPM P-R Int : 142 ms QRS Dur : 102 ms QT Int : 382 ms P-R-T Axes : 45 26 23 degrees QTcB Int : 424 ms Normal sinus rhythm Normal ECG When compared with ECG of 23-Jul-2024 10:16, QT has shortened Referred By: Generic ED Physician Electronically Signed By: Alexis Flores
[2025-07-21 18:34] VITALS: BP 164/77; PULSE 81; PULSE 93; RESP 14; O2SAT 96; O2SAT 97; BMI 26.5
[2025-07-21 18:53] VITALS: BP 125/64; PULSE 80; RESP 13; O2SAT 92
[2025-07-21 18:57] VITALS: TEMP 36.8; O2SAT 96
[2025-07-21 19:33] LABS: MANUAL DIFF FLAG NO
[2025-07-21 19:34] LABS: Hematocrit 43.8 % (42.0-52.0); Hemoglobin 14.5 g/dl (14.0-18.0); Imm Gran Abs Auto 0.01 X10*3/uL (0.00-0.03); Imm Gran Pct Auto 0.2 % (0.0-0.4); Lymphocytes Absolute Auto 0.9 X10*3/uL (1.2-4.9); Mean Corpuscular HGB Conc 33.1 g/dl (31.0-36.0); Mean Corpuscular Hemoglobin 26.6 pg (27.0-33.0); Mean Corpuscular Volume 80.2 fL (80.0-98.0); NRBC Abs Auto 0.000 X10*3/uL (0.0-0.012); NRBC Pct Auto 0.0 /100WBC (0.0-0.2); Platelet Count 179 X10*3/uL (160-400); Red Blood Count 5.46 X10*6/uL (4.60-5.80); White Blood Count 5.3 X10*3/uL (4.8-10.8)
[2025-07-21 19:49] LABS: Anion Gap 14 (12-20); Blood Urea Nitrogen 14 mg/dL (9-16); Calcium 9.1 mg/dL (8.4-10.2); Carbon Dioxide 26 mmol/L (22-29); Chloride 108 mmol/L (96-108); Creatinine Clr Calc Pharmacy 100.4; Estimated Glomerular Filt Rate > 60; Potassium 4.2 mmol/L (3.3-5.1); Sodium 144 mmol/L (135-145)
[2025-07-21 19:54] LABS: Acetaminophen LAB < 3 mcg/mL (<30); Salicylate < 5.0 mg/dL (15-30)
[2025-07-21 20:08] LABS: Troponin-I High Sensitivity < 2.7 ng/L (<3.5-35.0)
--- NOTE | 2025-07-21 20:45 | ED.OVERDOSE ---
HPI - Overdose General Chief Complaint: Overdose Stated Complaint: Overdose, 2 narcans Time Seen by Provider: 07/21/25 20:05 Source: patient and EMS Mode of arrival: EMS Limitations: no limitations History of Present Illness ED Provider: Gregorio KING HPI Narrative: Patient is a 35-year-old male presenting to the ED via EMS for evaluation of overdose. Patient reports he was using alcohol and fentanyl tonight, last remembers riding in a car and then waking up in an ambulance. Per EMS the patient's cousin administered 8 mg intranasal Narcan. Upon interview of the patient is lethargic, nodding off, requiring frequent verbal stimulus to remain awake and engaged in conversation, but when awake patient is oriented and cooperative. The patient reports recreational use, denies suicidal or homicidal ideation. The patient denies any chest pain, shortness of breath, abdominal pain, or acute somatic complaint. Related Data Home Medications ?Medication ?Instructions ?Recorded ?Confirmed methadone 10 mg/mL oral concentrate 100 mg PO DAILY 05/06/24 07/18/24 baclofen 10 mg tablet 10 mg PO TID 07/16/24 07/18/24 bupropion HCl 300 mg 24 hr tablet, 300 mg PO DAILY 07/16/24 07/18/24 extended release gabapentin 600 mg tablet 800 mg PO TID 07/16/24 07/18/24 Allergies Allergy/AdvReac Type Severity Reaction Status Date / Time amoxicillin (AMOXICILLIN) Allergy Unknown UNKNOWN Verified 07/21/25 18:37 penicillin V Allergy Unknown Hives Verified 07/21/25 18:37 Penicillins (PENICILLINS) Allergy Unknown SWELLING Verified 07/21/25 18:37 Review of Systems Review of Systems: Yes all other systems are reviewed and are negative PMFSH Past Medical History Medical History Polysubstance (including opioids) dependence, daily use No known health problems Social History Social History Household Members: Other Housing: Homeless Do you presently have visiting nurse or other home services: No Alcohol intake: current Alcohol intake frequency: 3 or more drinks per day Alcohol type: beer Patient Tobacco Use Status: Current everyday Tobacco user Tobacco use type: Cigarette Cigarette Packs Per Day: 1 Cigarettes Per Day: 20.0 Years Smoked: 10 Smoked in Last 30 Days: Yes e-Cigarette/Vaping Use: Currently Using Second Hand Smoke Exposure: No Use of substances other than those prescribed or required for medical reasons: Yes Substance Use Type: Crack/Cocaine, Heroin and Marijuana Advance Directives: No Advance Directives Information Provided: No Do you have a plan to hurt others: No Plan service: No Sexual orientation: Straight/Heterosexual Physical Exam Vital Signs: Vital Signs: Last Vital Signs Temp 97.8 F 07/22/25 00:46 Pulse 68 07/22/25 00:46 Resp 16 07/22/25 00:46 BP 117/66 07/22/25 00:46 Pulse Ox 95 07/22/25 00:46 O2 Del Method Room Air 07/22/25 00:46 O2 Flow Rate 2 07/21/25 22:47 BMI result Body Mass Index 26.5 CONSTITUTIONAL: The patient appears clinically intoxicated by opiates, otherwise non-toxic, well nourished and in no acute distress. Vital signs as documented. HEAD: Atraumatic, normocephalic. EYES: EOMs grossly intact, pupils equal, conjunctiva clear, no exudate. ENT: Nares patent, no discharge. Airway patent, no audible stridor, visible mucosa is pink and moist without noted lesions. NECK: Trachea is midline, no obvious masses or gross abnormalities. CHEST: Symmetric movement, normal appearance. LUNGS: LS present and CTAB, no w/r/r. Non-labored work of breathing. CARDIAC: Regular Rhythm, S1/S2 appreciated, no murmurs, rubs or gallops. ABDOMEN: Abdomen soft and non-tender x4 quadrants, no palpable masses or organomegaly. : Deferred. EXTREMITIES: Normal tone, moves all extremities spontaneously without reported pain. No obvious acute injury or deformity noted. NEURO: Lethargic, but alert to verbal stimuli, oriented x3 when awake, requires frequent verbal stimuli to remain engaged in conversation, CN II-XII appear grossly intact. Cerebellar Functioning grossly intact. No obvious sensory or motor deficits. Speech clear and appropriate. PSYCH: normal affect, appropriate eye contact, fluid speech, with appropriate response to questioning. No reported suicidality or homicidality. SKIN: Warm, dry, color appropriate, normal turgor. Multiple excoriation/picking/injection lesions noted diffusely on the extremities. No other rashes noted. Medical Decision Making Medical Decision Making [facility] Narrative: 9:45 PM 07/21/2025 (Ajit KING): Patient is a 35-year-old male presenting to the ED via EMS for evaluation of overdose. Patient reports he was using alcohol and fentanyl tonight, last remembers riding in a car and then waking up in an ambulance. Per EMS the patient's cousin administered 8 mg intranasal Narcan. Upon interview of the patient is lethargic, nodding off, requiring frequent verbal stimulus to remain awake and engaged in conversation, but when awake patient is oriented and cooperative. The patient reports recreational use, denies suicidal or homicidal ideation. The patient denies any chest pain, shortness of breath, abdominal pain, or acute somatic complaint. Patient's exam reveals no focal findings, patient is lethargic but arousable. Laboratory evaluation is reassuring. We will continue to monitor to clinical sobriety. Admission/Observation Consideration of admission/observation: Escalation of care including admission/observation considered Lab Data [facility] Lab Attestation statement: I reviewed the patient's lab results. 07/21/25 19:29 07/21/25 19:29 Labs: Lab Results 07/21/25 Range/Units 19:29 WBC 5.3 (4.8-10.8) X10*3/uL RBC 5.46 (4.60-5.80) X10*6/uL Hgb 14.5 (14.0-18.0) g/dl Hct 43.8 (42.0-52.0) % MCV 80.2 (80.0-98.0) fL MCH 26.6 L (27.0-33.0) pg MCHC 33.1 (31.0-36.0) g/dl RDW 12.8 (11.0-16.0) % Plt Count 179 (160-400) X10*3/uL MPV 11.2 (9.4-12.4) fL Immature Gran % (Auto) 0.2 (0.0-0.4) % Neut % (Auto) 75.4 H (45-73) % Lymph % (Auto) 17.2 L (20-40) % [place] % (Auto) 6.0 (2-11) % Eos % (Auto) 0.4 (0-4) % Baso % (Auto) 0.8 (0-2) % Lymph # (Auto) 0.9 L (1.2-4.9) X10*3/uL [place] # (Auto) 0.3 (0.1-1.2) X10*3/uL Eos # (Auto) 0.0 (0.0-0.4) X10*3/uL Baso # (Auto) 0.0 (0.0-0.2) X10*3/uL Abs Immat Gran (auto) 0.01 (0.00-0.03) X10*3/uL Absolute Neuts (auto) 4.0 (2.0-8.3) x10*3/uL Absolute Nucleated RBC 0.000 (0.0-0.012) X10*3/uL Nucleated RBC % (auto) 0.0 (0.0-0.2) /100WBC Sodium 144 (135-145) mmol/L Potassium 4.2 (3.3-5.1) mmol/L Chloride 108 (96-108) mmol/L Carbon Dioxide 26 (22-29) mmol/L Anion Gap 14 (12-20) BUN 14 (9-16) mg/dL Creatinine 1.08 (0.5-1.4) mg/dL Estim Creat Clear Calc 100.4 Estimated GFR > 60 Random Glucose 89 (60-115) mg/dL Calcium 9.1 D (8.4-10.2) mg/dL Troponin I High Sens < 2.7 (<3.5-35.0) ng/L Salicylates < 5.0 L (15-30) mg/dL Acetaminophen < 3 (<30) mcg/mL Ethyl Alcohol 44 mg/dL External Record Review External record reviewed: Outpatient record Discharge Plan Discharge Clinical Impression: Drug overdose Patient Disposition: Home, Self-Care Instructions: Adult Overdose (ED) Additional Instructions: Thank you for choosing [facility]'s Emergency Department for your care today. At this time there is no evidence of an acute process requiring admission to the hospital or continued ED observation, and it is safe to discharge you home. You were seen in the emergency department today for evaluation of a suspected opiate overdose. Please do not use heroin or other narcotics as they are generally not good for your health and can put you at risk for respiratory arrest, anoxic brain injury, severely decreased quality of life, and an otherwise avoidable untimely . You were offered a substance abuse consultation during your visit today, to help you stop using recreational drugs. You declined this offer. Please make use of all available personal and community-based resources to attempt to become sober from recreational drugs. Please stay well hydrated and get plenty of rest. Please follow up with your primary care physician for re-evaluation, additional management of your symptoms, and continued preventative care. If you do not have a primary care physician, please call the [facility] at [phone] to establish a new primary care physician. While waiting to establish your new primary care physician, you can call our [facility] at [phone] for non-emergency needs. Please return to the emergency department if you develop a severe or sudden change in your symptoms, a fever over 100.4 that does not improve with Tylenol or Ibuprofen, recurrent vomiting, or any other new or worsening symptoms or concerns. You may also return to the emergency department if you change your mind regarding a substance abuse consultation. Prescriptions: No Action gabapentin 600 mg tablet 800 mg PO TID baclofen 10 mg tablet 10 mg PO TID bupropion HCl 300 mg tablet extended release 24 hr 300 mg PO DAILY methadone 10 mg/mL Concentrate 100 mg PO DAILY Patient Comments: confirmed by fence supervisor Print Language: Greenlandic
--- OUTSIDE RECORDS SUMMARY | 2025-07-21 21:00 | XMS_ITS | Encounter Summary ---
Author Organization [facility] Address [address] [place] [address] Phone Care Team Providers Care Sew On Operator Name Role Phone Silvia Spivey MD Primary Care Provider Encounter Details Date Type Department Care Team (Late st Contact Info) Description 06/13/2017 Conversion Encounter [facility] [place] [address] [place] [address] Social History Tobacco Use Types Packs/Day Years Used Date Smoking Tobacco: Never Assessed Sex and Gender Information Value Date Recorded Sex Assigned at Not on file Legal Sex Male 4:36 PM EDT Gender Identity Not on file Sexual Orientation Not on file documented as of this encounter Plan of Treatment Not on file documented as of this encounter Visit Diagnoses Not on filedocumented in this encounter Care Teams Sew On Operator Relationship Specialty Start Date End Date Silvia Spivey MD [address] [place] [address] PCP - General 06/07/17 12/13/22 documented as of this encounter
--- OUTSIDE RECORDS SUMMARY | 2025-07-21 21:00 | XMS_ITS | Clinical Summary ---
Author Organization [facility] Address [address] [place] [phone] Phone Care Team Providers Care Immigration Paralegal Name Role Phone Unavailable Primary Care Provider Unavailabl e Immunizations Immunization Administration Dates Next Due DTP 05/31/1997, 4,1992, 992,1992 H1N1 05/05/2010 Hep B, ped/adol 1992,1992,1992 Hib (PRP-T) 06/07/1993, 3,1992, 992 Influenza, injectable, trivalent 08/09/2006 MMR 05/31/1997,06/07/1993 Meningococcal Conj (Menactra) MCV4P 08/09/2006 OPV 05/31/1997, 4,1992, 992 Tdap 11/07/2005 Unknown Vaccine 05/28/1993 Family History Relation Name Status Comments Father Father: ADD/ADH D Half-Sister Alive Half sister (P) : Alive and well Mother Alive Mother: Alive a nd well Other Family history of Diabetes mellitus, Family history of Asthma, Family history of Elevated cholesterol Social History Tobacco Use Types Packs/Day Years Used Date Smoking Tobacco: Never Assessed Sex and Gender Information Value Date Recorded Sex Assigned at Not on file Legal Sex Male 4:36 PM EDT Gender Identity Not on file Sexual Orientation Not on file Last Filed Vital Signs Vital Sign Reading Time Taken Comments Blood Pressure 120/72 05/05/2010 12:00 AM EDT Pulse - - Temperature 36.7 C (98.1 F) 01/13/2010 12:00 AM EDT Respiratory Rate - - Oxygen Saturation - - Inhaled Oxygen Concentration - - Weight 65.3 kg (144 lb) 05/05/2010 12:00 AM EDT Height 171.5 cm (5' 7.5 ) 05/05/2010 12:00 AM ED T Body Mass Index 22.22 05/05/2010 12:00 AM EDT Plan of Treatment Health Maintenance Due Date Last Done Comments Varicella Vaccines (1 of 2 - 13+ 2-dose series) 2005 DTaP,Tdap,and Td Vaccines (7 - Td or Tdap) 11/07/2015 11/07/2005, 05/31/1997, 03/13/1994, Additional history exists HPV Vaccines (1 - 3-dose SCDM series) 2019 Influenza Vaccines (#1) 2025 08/09/2006 COVID-19 Vaccine ( season) 2025 Hepatitis B Vaccines Completed 1992, 1992, 1992 HIB Vaccines Completed 06/07/1993, 11/28, 1992, Additional history exists IPV Vaccines Completed 05/31/1997, 02/25, 1992, Additional history exists MMR Vaccines Completed 05/31/1997, 06/07/1993 Meningococcal Vaccine Aged Out 08/09/2006 No martita gen eligible based on patient's age to complete this topic Hepatitis A Vaccines Aged Out No long er eligible based on patient's age to complete this topic Men B Vaccine Aged Out No longer elig ible based on patient's age to complete this topic Pneumococcal Vaccine Aged Out No long er eligible based on patient's age to complete this topic
--- OUTSIDE RECORDS SUMMARY | 2025-07-21 21:00 | XMS_ITS ---
Author Name [facility] Organization [facility] Care Team Organization Name Specialty Phone Email Start Date End Da jacoby [facility] CHASTITY MORATAYA Primary Care 09/04/2022 06/15/20 24
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
[2025-07-21 22:47] VITALS: BP 104/61; PULSE 68; RESP 18; O2SAT 95
--- NOTE | 2025-07-22 00:09 | PC.NURSE ---
Took over care from ОЛЬГА Em, pt sleeping at this time. no distress.
[2025-07-22 00:46] VITALS: BP 117/66; PULSE 68; RESP 16; TEMP 36.6; O2SAT 95
--- NOTE | 2025-07-22 05:51 | PC.NURSE ---
pt sleeping most of the evening, reviewed discharge instructions with pt. pt verbalized understanding, no sign of distress.
--- NOTE | 2025-07-22 05:56 | PC.NURSE ---
belonging given back to pt .
[2025-07-22] MEDS: Naloxone HCl Nasal TAKE HOME 4 MG SPRAY 8 MG NOSTRILALT (06:07)
[2025-07-22 06:21] VITALS: BP 117/66; PULSE 68; RESP 16; TEMP 36.6; O2SAT 95
--- NOTE | 2025-07-22 06:22 | PC.NURSE ---
pt given belongs back, money and necklace given back from security, narcan given at discharge,
== END 2025-07-22 06:23 | disposition home or self-care (01) ==
PROVIDERS: Emergency Provider Student in an Organized Health Care Education/Training Program
DX: T40.411A Poisoning by fentanyl or fentanyl analogs, accidental (unintentional), initial encounter (principal); T51.0X1A Toxic effect of ethanol, accidental (unintentional), initial encounter; Y92.89 Other specified places as the place of occurrence of the external cause
CPT/HCPCS: 36415; 80048; 80143; 80179; 80307; 84484; 85025; 93005; 99284; 99285

== ENCOUNTER → 2025-07-21 19:52 | Outpatient (BNV) | payer OTHER, SELFPAY | PROVIDERS: Emergency Provider Student in an Organized Health Care Education/Training Program; Visit Provider Internal Medicine Cardiovascular Disease | DX: T40.601A Poisoning by unspecified narcotics, accidental (unintentional), initial encounter (principal) | CPT/HCPCS: 93010 ==

== ENCOUNTER 2025-09-29 07:24 | Emergency (ER) | payer OTHER, SELFPAY ==
[2025-09-29 07:42] VITALS: BP 146/92; BP 179/102; PULSE 102; PULSE 95; RESP 16; TEMP 36.5; O2SAT 93; O2SAT 98; BMI 28.1
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
--- OUTSIDE RECORDS SUMMARY | 2025-09-29 08:13 | XMS_ITS | Encounter Summary ---
Author Organization [facility] Address [address] [place] [address] Phone Care Team Providers Care Jack Machine Operator Name Role Phone Silvia Spivey MD Primary Care Provider [phone] Encounter Details Date Type Department Care Team (Late st Contact Info) Description 06/13/2017 Conversion Encounter [facility] [place] [address] [place] [address] Social History Tobacco Use Types Packs/Day Years [...] on filedocumented in this encounter Care Teams Jack Machine Operator Relationship Specialty Start Date End Date Silvia Spivey MD [address] [place] [address] PCP - General 06/07/17 12/13/22 documented as of this encounter
--- OUTSIDE RECORDS SUMMARY | 2025-09-29 08:13 | XMS_ITS | Clinical Summary ---
Author Organization [facility] Address [address] [place] [phone] Phone Care Team Providers Care Technical Sales Consultant Name Role Phone Unavailable Primary Care Provider [...] Influenza Vaccines (#1) 2025 08/09/2006 COVID-19 Vaccine (2024- season) 2025 Hepatitis B Vaccines Completed 1992, [...]
--- OUTSIDE RECORDS SUMMARY | 2025-09-29 08:13 | XMS_ITS | Clinical Summary ---
Author Organization [facility] [address] [place] [address] [place] [phone] Phone Care Team Providers Care Senior Geologist Name Role Phone Lyndon Lam MD Primary [...] Years) (1 of 2 - PCV) 2011 HPV Vaccines (1 - 3-dose SCD M series) 2019 HIV Screening 11/26/2023 Hepatitis C Screening 11/26/2023 Social Influencers of Health Screening 11/26/2023 DTaP,Tdap,and Td Vaccines (2 - Td or Tdap) 07/23/2024 07/23/2014 Depression Screening 10/28/2024 COVID-19 Vaccine (1 - 2024-2 6 season) 2025 Influenza Vaccine (#1) 2025 RSV [...] patient's age to complete this topic Insurance [facility] [employer] MEDICAID - [place] Care Teams Senior Geologist Relationship Specialty Start Date End Date Lyndon Lam MD [address] [place] [phone] PCP - General Internal Medicine 07/08/25
--- NOTE | 2025-09-29 08:41 | PC.NURSE ---
pt denies SI, and HI. he has no complaints. he is alert, oriented.
[2025-09-29 08:42] VITALS: BP 146/92; PULSE 95; RESP 16; TEMP 36.5; O2SAT 93
== END 2025-09-29 08:46 | disposition home or self-care (01) ==
PROVIDERS: Emergency Provider Emergency Medicine
DX: F32.A Depression, unspecified (principal); Z63.8 Other specified problems related to primary support group; F19.10 Other psychoactive substance abuse, uncomplicated
CPT/HCPCS: 99282; 99283